=== PATIENT | female | born 1935 | race Caucasian/White ===

== ENCOUNTER → 2016-09-06 | Outpatient (CLI) | payer MEDICARE, OTHER ==
[2016-09-06 08:34] LABS: Basophils # (A) 0.1 k/uL (0-0.2); Basophils % (A) 1 %; CH 29.4; CHCM 33.8; Eosinophils # (A) 0.3 k/uL (0-0.7); Eosinophils % (A) 5 %; HCT 41.7 % (34.0-46.0); HDW 2.53; HGB 14.4 gm/dL (11.4-16.0); Luc # (Auto) 0.15; Luc % (Auto) 2; Lymphocytes # (A) 3.1 k/uL (1.0-4.8); Lymphocytes % (A) 44 %; MCH 30.3 pg (25.0-35.0); MCHC 34.6 g/dL (31.0-37.0); MCV 87.4 fL (80.0-100.0); Mean Platelet Volume 7.2; Monocytes # (A) 0.5 k/uL (0-1.0); Monocytes % (A) 6 %; Neutrophils % (A) 42 %; RBC 4.77 m/uL (3.80-5.40); RDW 13.2 % (11.5-15.5); WBC (Perox) 6.89
[2016-09-06 09:33] LABS: ALT 31 U/L (9-52); AST 26 U/L (14-36); Alkaline Phosphatase 53 U/L (38-126); Anion Gap 11 mmol/L; Blood Urea Nitrogen 15 mg/dL (7-17); Carbon Dioxide 26 mmol/L (22-30); Chloride 107 mmol/L (98-107); Cholesterol 199 mg/dL (<200); Glucose 95 mg/dL (74-99); HDL Cholesterol 53 mg/dL (40-60); Non-African American GFR(MDRD) >60 (>60 ml/min/1.73 sqM); Potassium 4.7 mmol/L (3.5-5.1); Sodium 144 mmol/L (137-145); Total Bilirubin 0.8 mg/dL (0.2-1.3); Total Protein 7.6 g/dL (6.3-8.2); Triglycerides 221 mg/dL (<150)
== END | disposition home or self-care (01) ==
LOC: LABWHC1 07:56
PROVIDERS: ATTEND Internal Medicine Infectious Disease
DX: E78.00 Pure hypercholesterolemia, unspecified (principal); I10 Essential (primary) hypertension
CPT/HCPCS: 36415; 80053; 80061; 82306; 85025

== ENCOUNTER → 2017-01-03 | Outpatient (CLI) | payer MEDICARE, OTHER ==
[2017-01-03 08:31] LABS: ALT 32 U/L (9-52); AST 22 U/L (14-36); Anion Gap 11 mmol/L; Blood Urea Nitrogen 14 mg/dL (7-17); Calcium 9.7 mg/dL (8.4-10.2); Carbon Dioxide 28 mmol/L (22-30); Chloride 104 mmol/L (98-107); Glucose 89 mg/dL (74-99); Non-African American GFR(MDRD) >60 (>60 ml/min/1.73 sqM); Potassium 4.3 mmol/L (3.5-5.1); Sodium 143 mmol/L (137-145)
== END | disposition home or self-care (01) ==
LOC: LABWHC1 07:53
PROVIDERS: ATTEND Internal Medicine Infectious Disease
DX: E78.00 Pure hypercholesterolemia, unspecified (principal); E03.9 Hypothyroidism, unspecified
CPT/HCPCS: 36415; 80048; 84439; 84443; 84450; 84460

== ENCOUNTER 2017-03-03 13:44 | Inpatient (IN) | payer MEDICARE ==
[2017-03-03] MEDS ORDERED: PIPERACILLIN-TAZOBACTAM 3.375 GM in DEXTROSE/WATER 1 50ML.BAG IVPB STA (14:24)
[2017-03-03] MEDS ORDERED: CLINDAMYCIN 600 MG in DEXTROSE 5% IN WATER 50 ML IVPB STA ×2 (14:32)
--- NOTE | 2017-03-03 14:42 | ED ---
Extremity Problem HPI - General Chief complaint: Extremity Problem,Nontraumatic Stated complaint: LEFT FOOT INFECTIONL, SENT BY DR FREED Time Seen by Provider: 03/03/17 14:14 Source: patient Mode of arrival: wheelchair Limitations: no limitations - History of Present Illness Initial comments: Patient is an 81-year-old female with a history of non-diabetic neuropathy who presents with a chief complaint of infection on her left great toe. Patient is seen by podiatry, Dr. Joseph who sent her to the emergency department. The patient states that he opened it and packed it today but he wants her to come to the emergency department so that he can further debridement the wound. The patient does admit to chills over the last few days however she didn't know she had a fever or if it was because she is nervous about her upcoming oral surgery. - Related Data Home Medications Medication Instructions Recorded Confirmed RX: Allopurinol [Zyloprim] 100 mg PO HS 12/23/14 03/03/17 RX: Pravastatin Sodium [Pravachol] 40 mg PO HS 12/23/14 03/03/17 RX: amLODIPine [Norvasc] 5 mg PO QA 12/23/14 03/03/17 RX: Antiarthritic Combination No.2 750 mg PO BID 12/30/14 03/03/17 [Glucosamine-Chondroitin] RX: Calcium Carbonate [Calcium] 600 mg PO DAILY 12/30/14 03/03/17 RX: Fish Oil/Dha/Epa [Fish Oil 1 cap PO DAILY 12/30/14 03/03/17 1,200 mg Fish Oil] RX: Aspirin EC [Ecotrin Low Dose] 81 mg PO DAILY 04/09/15 03/03/17 Cholecalciferol [Vitamin D3] 1,000 unit PO DAILY 03/03/17 03/03/17 Multivitamins, Thera [Multivitamin 1 tab PO DAILY 03/03/17 03/03/17 (formulary)] Allergies Allergy/AdvReac Type Severity Reaction Status Date / Time vancomycin Allergy Anaphylaxis Verified 03/03/17 14:38 sulfamethoxazole AdvReac Dyspnea Verified 03/03/17 14:38 [From Bactrim] trimethoprim [From Bactrim] AdvReac Dyspnea Verified 03/03/17 14:38 Review of Systems ROS Statement: Those systems with pertinent positive or pertinent negative responses have been documented in the HPI. ROS Other: All systems not noted in ROS Statement are negative. Constitutional: Reports: chills. Denies: fever Respiratory: Denies: cough Cardiovascular: Denies: chest pain Endocrine: Denies: fatigue Gastrointestinal: Denies: abdominal pain, nausea, vomiting Genitourinary: Denies: dysuria Musculoskeletal: Denies: back pain Skin: Denies: rash Neurological: Denies: headache Past Medical History Past Medical History: GERD/Reflux, Hyperlipidemia, Musculoskeletal Disorder, Osteoarthritis (OA) Additional Past Medical History / Comment(s): LT FOOT INFECTION PT HAS BEEN DEALING WITH FOR SEVERL MONTHS HAS PICC LINE/HYPERBARIC TX AND SEES DR FREED AT [facility] neuropathy, raynaulds, gout, CHILD HAD HEART MURMUR, HIATAL HERNIA, VIT D DEFICIENCY, INCONT OF URINE, History of Any Multi-Drug Resistant Organisms: MRSA Date of last positivie culture/infection: 1998 MDRO Source:: toe Past Surgical History: Adenoidectomy, Bladder Surgery, Heart Catheterization, Tonsillectomy, Tubal Ligation Additional Past Surgical History / Comment(s): 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 ), SINUS BX-NEG, COLONOSCOPY, MICHELLE BREAST BX-NEG, MICHELLE CATARACTS, PT WAS BORN WITH EXTRA THUMB ON RT HAND HAD IT SX REMOVED WHEN SHE WAS AN INFANT.BLADDER SUSPENSION, CARBAJAL NEUROMA REMOVED Past Anesthesia/Blood Transfusion Reactions: No Reported Reaction Past Psychological History: No Psychological Hx Reported Smoking Status: Never smoker Past Alcohol Use History: None Reported Past Drug Use History: None Reported - Past Family History Son(s) Family Medical History: No Reported History Sister(s) Family Medical History: Diabetes Mellitus Brother(s) Family Medical History: No Reported History Mother Family Medical History: Cancer Additional Family Medical History / Comment(s): PANCREATIC CANCER Father Family Medical History: Congestive Heart Failure (CHF) Additional Family Medical History / Comment(s): POLIO Daughter(s) Family Medical History: Cancer Additional Family Medical History / Comment(s): BRAIN General Exam Limitations: no limitations General appearance: alert, in no apparent distress Head exam: Present: atraumatic, normocephalic Eye exam: Present: PERRL ENT exam: Present: other (patient is very hard of hearing, does not have hearing aids with her. ) Respiratory exam: Present: normal lung sounds bilaterally Cardiovascular Exam: Present: regular rate, normal rhythm GI/Abdominal exam: Present: soft. Absent: distended, tenderness Rectal exam: Present: deferred Left Foot/Toe exam: Present: swelling, erythema, puncture wound Neurological exam: Present: alert, oriented X3 Psychiatric exam: Present: normal affect, normal mood Skin exam: Present: warm, dry, intact Course Vital Signs 03/03/17 03/03/17 13:45 16:53 Temperature 98.3 F 99.3 F Pulse Rate 93 67 Respiratory 18 18 Rate Blood Pressure 195/80 152/68 O2 Sat by Pulse 99 99 Oximetry Medical Decision Making - Medical Decision Making Patient presents with a chief complaint of left great toe infection. On initial evaluation there is erythema, and warmth to the area. There is an ulceration at the base of the fifth metatarsal. There is iodoform packing inside the wound which was removed. Patient has neuropathy therefore she does not feel any pain in her feet. At this time, there is concern for soft tissue infection versus osteomyelitis. 4:59 PM Lab evaluation of this patient is unremarkable except for an elevated CRP. Review of the x-rays did not show any obvious gas formation or obvious signs of osteomyelitis however the patient does have hardware in the infected toe. He was started on Zosyn and clindamycin. I discussed this case with Dr. Lozada who accepts admission with consult to Dr. Freed, and Dr. Jim. I discussed the care plan with the patient, she is agreeable. At this time, the patient remained stable. - Lab Data Result diagrams: 03/03/17 15:05 03/03/17 15:05 Lab Results 03/03/17 03/03/17 03/03/17 Range/Units 15:05 15:05 15:05 WBC 11.1 H (3.8-10.6) k/uL RBC 4.53 (3.80-5.40) m/uL Hgb 13.0 (11.4-16.0) gm/dL Hct 39.6 (34.0-46.0) % MCV 87.3 (80.0-100.0) fL MCH 28.8 (25.0-35.0) pg MCHC 33.0 (31.0-37.0) g/dL RDW 12.6 (11.5-15.5) % Plt Count 298 (150-450) k/uL Neutrophils % 73 % Lymphocytes % 15 % Monocytes % 6 % Eosinophils % 4 % Basophils % 0 % Neutrophils # 8.1 H (1.3-7.7) k/uL Lymphocytes # 1.7 (1.0-4.8) k/uL Monocytes # 0.7 (0-1.0) k/uL Eosinophils # 0.4 (0-0.7) k/uL Basophils # 0.1 (0-0.2) k/uL ESR 66 H (0-20) mm/hr Sodium 139 (137-145) mmol/L Potassium 4.4 (3.5-5.1) mmol/L Chloride 102 (98-107) mmol/L Carbon Dioxide 26 (22-30) mmol/L Anion Gap 11 mmol/L BUN 16 (7-17) mg/dL Creatinine 0.60 (0.52-1.04) mg/dL Est GFR (MDRD) Af Amer >60 (>60 ml/min/1.73 sqM) Est GFR (MDRD) Non-Af >60 (>60 ml/min/1.73 sqM) Glucose 104 H (74-99) mg/dL Plasma Lactic Acid Mervin 1.1 (0.7-2.0) mmol/L Calcium 9.5 (8.4-10.2) mg/dL C-Reactive Protein 25.9 H (<10.0) mg/L Disposition Clinical Impression: Cellulitis and abscess of foot, Infection of left foot Disposition: ADMITTED IP TO THIS HOSP Condition: Good Referrals: Niall Richmond MD [Primary Care Provider] - 1-2 days Decision to Admit Reason: Admit from EC - Out of Hospital Transfer - Req. Specs Out of Hospital Transfer - Requested Specifics: Other Non-Acute
[2017-03-03 15:21] LABS: Basophils # (A) 0.1 k/uL (0-0.2); Basophils % (A) 0 %; Eosinophils # (A) 0.4 k/uL (0-0.7); Eosinophils % (A) 4 %; HCT 39.6 % (34.0-46.0); Lymphocytes # (A) 1.7 k/uL (1.0-4.8); Lymphocytes % (A) 15 %; MCH 28.8 pg (25.0-35.0); MCV 87.3 fL (80.0-100.0); Mean Platelet Volume 6.7; Monocytes # (A) 0.7 k/uL (0-1.0); Monocytes % (A) 6 %; Neutrophils # (A) 8.1 k/uL (1.3-7.7); Neutrophils % (A) 73 %; Platelet Count 298 k/uL (150-450); RBC 4.53 m/uL (3.80-5.40); RDW 12.6 % (11.5-15.5); WBC 11.1 k/uL (3.8-10.6)
[2017-03-03 15:38] LABS: Anion Gap 11 mmol/L; Blood Urea Nitrogen 16 mg/dL (7-17); C Reactive Protein 25.9 mg/L (<10.0); Calcium 9.5 mg/dL (8.4-10.2); Carbon Dioxide 26 mmol/L (22-30); Chloride 102 mmol/L (98-107); Glucose 104 mg/dL (74-99); Sodium 139 mmol/L (137-145)
[2017-03-03 15:39] LABS: Potassium 4.4 mmol/L (3.5-5.1)
--- NOTE | 2017-03-03 16:17 | XR ---
EXAMINATION TYPE: XR foot complete LT DATE OF EXAM: 03/03/2017 CLINICAL HISTORY: Left foot infection with nonhealing wound for months. TECHNIQUE: Frontal, lateral, and oblique images of the left foot are obtained. COMPARISON: Left foot x-ray July 03, 2015. FINDINGS: There is prior osteotomy first metatarsal. There is fixating screw and metallic nail first proximal phalanx redemonstrated. There is marked deformity of first toe redemonstrated. There is ampu tation defects second toe. Osseous overlap makes evaluation suboptimal. Demineralization is present. There is old fracture deformity mid shaft third metatarsal redemonstrated there is some chronic perio steal reaction fourth metatarsal. There is lucency consistent with ulceration near base of first prox imal phalanx. There is prominent soft tissue swelling first toe. There is no suspicious periosteal re action or cortical destruction. There is joint space loss at the Lisfranc joints with spurring. There is small to moderate size inferior calcaneal spur redemonstrated. IMPRESSION: There is no convincing radiographic evidence for acute osteomyelitis. Chronic changes re demonstrated as detailed above not significantly changed from prior x-ray.
[2017-03-03 16:48] LABS: Erythrocyte Sedimentation Rate 66 mm/hr (0-20)
[2017-03-03] MEDS ORDERED: NALOXONE 0.4 MG/ML 1 ML VIAL IV PRN (17:01)
[2017-03-03 21:38] VITALS: BMI 28.2
[2017-03-03] MEDS: CALCIUM CARBONATE 500 MG CHEWABLE PO PRN (22:22)
[2017-03-04] MEDS ORDERED: ACETAMINOPHEN TAB 325 MG TAB PO PRN (11:18)
[2017-03-04] MEDS ORDERED: ONDANSETRON 4 MG/2 ML VIAL IVP PRN (11:18)
[2017-03-04] MEDS ORDERED: HYDROcodone/APAP 5-325MG 1 EACH TAB PO PRN (11:18)
[2017-03-04] MEDS ORDERED: VANCOMYCIN IV PER PHARMACY 1 EACH MISC MISCELLANE PRN (13:33)
--- NOTE | 2017-03-04 13:36 | P.HPIM ---
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 X-ray in the emergency room showed no evidence of osteomyelitis. Left foot is currently wrapped in clean/ dry dressing awaiting infectious disease and podiatry evaluation. Patient was started on broad spectrum antibiotic. There is no evidence of sepsis. Patient denies any pain. Review of Systems Review of system: 14 points review of systems were obtained and were negative except to what were mentioned in the HPI. Past Medical History Past Medical History: GERD/Reflux, Hyperlipidemia, Musculoskeletal Disorder, Osteoarthritis (OA) Additional Past Medical History / Comment(s): LT FOOT INFECTION PT HAS BEEN DEALING WITH FOR SEVERL MONTHS HAS PICC LINE/HYPERBARIC TX AND SEES DR FREED AT [facility] neuropathy, raynaulds, gout, CHILD HAD HEART MURMUR, HIATAL HERNIA, VIT D DEFICIENCY, INCONT OF URINE, History of Any Multi-Drug Resistant Organisms: MRSA Date of last positivie culture/infection: 1998 MDRO Source:: toe Past Surgical History: Adenoidectomy, Bladder Surgery, Heart Catheterization, Tonsillectomy, Tubal Ligation Additional Past Surgical History / Comment(s): 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 ), SINUS BX-NEG, COLONOSCOPY, MICHELLE BREAST BX-NEG, MICHELLE CATARACTS, PT WAS BORN WITH EXTRA THUMB ON RT HAND HAD IT SX REMOVED WHEN SHE WAS AN .BLADDER SUSPENSION, CARBAJAL NEUROMA REMOVED Past Anesthesia/Blood Transfusion Reactions: No Reported Reaction Past Psychological History: No Psychological Hx Reported Smoking Status: Never smoker Past Alcohol Use History: None Reported Past Drug Use History: None Reported - Past Family History Son(s) Family Medical History: No Reported History Sister(s) Family Medical History: Diabetes Mellitus Brother(s) Family Medical History: No Reported History Mother Family Medical History: Cancer Additional Family Medical History / Comment(s): PANCREATIC CANCER Father Family Medical History: Congestive Heart Failure (CHF) Additional Family Medical History / Comment(s): POLIO Daughter(s) Family Medical History: Cancer Additional Family Medical History / Comment(s): BRAIN Medications and Allergies Home Medications Medication Instructions Recorded Confirmed Type Allopurinol [Zyloprim] 100 mg PO HS 12/23/14 03/03/17 History Pravastatin Sodium [Pravachol] 40 mg PO HS 12/23/14 03/03/17 History amLODIPine [Norvasc] 5 mg PO QAM 12/23/14 03/03/17 History Antiarthritic Combination No.2 750 mg PO BID 12/30/14 03/03/17 History [Glucosamine-Chondroitin] Calcium Carbonate [Calcium] 600 mg PO DAILY 12/30/14 03/03/17 History Fish Oil/Dha/Epa [Fish Oil 1,200 1 cap PO DAILY 12/30/14 03/03/17 History mg Fish Oil] Aspirin EC [Ecotrin Low Dose] 81 mg PO DAILY 04/09/15 03/03/17 History Cholecalciferol [Vitamin D3] 1,000 unit PO DAILY 03/03/17 03/03/17 History Multivitamins, Thera [Multivitamin 1 tab PO DAILY 03/03/17 03/03/17 History (formulary)] Allergies Allergy/AdvReac Type Severity Reaction Status Date / Time vancomycin Allergy Anaphylaxis Verified 03/03/17 14:38 sulfamethoxazole AdvReac Dyspnea Verified 03/03/17 14:38 [From Bactrim] trimethoprim [From Bactrim] AdvReac Dyspnea Verified 03/03/17 14:38 Physical Exam Vitals: Vital Signs Temp Pulse Pulse Resp BP BP Pulse Ox 03/04/17 07:00 97.1 F L 62 18 130/51 98 03/03/17 23:02 99.3 F 71 16 130/61 97 03/03/17 20:00 98.3 F 70 16 130/59 98 03/03/17 19:15 98.8 F 76 16 156/66 98 03/03/17 16:53 99.3 F 67 18 152/68 99 03/03/17 13:45 98.3 F 93 18 195/80 99 Intake and Output 03/03/17 03/04/17 03/04/17 22:59 06:59 14:59 Other: # Voids 2 Weight 77 kg General: The patient is awake and alert, in no distress Eye: there is normal conjunctiva bilaterally. Neck: The neck is supple, there is no JVD. Cardiovascular: Normal S1-S2, no S3-S4, no murmurs. Respiratory: Lungs clear to auscultation bilaterally Gastrointestinal: Abdomen is soft, nontender Musculoskeletal: There is no pedal edema. Neurological:. Speech is normal. Skin: Skin is warm and dry Results CBC & Chem 7: 03/03/17 15:05 03/03/17 15:05 Labs: Abnormal Lab Results - Last 24 Hours (Table) 03/03/17 03/03/17 Range/Units 15:05 15:05 WBC 11.1 H (3.8-10.6) k/uL Neutrophils # 8.1 H (1.3-7.7) k/uL ESR 66 H (0-20) mm/hr Glucose 104 H (74-99) mg/dL C-Reactive Protein 25.9 H (<10.0) mg/L Thrombosis Risk Factor Assmnt - Choose All That Apply Each Risk Factor Represents 3 Points: Age 75 years or older Thrombosis Risk Factor Assessment Total Risk Factor Score: 3 Thrombosis Risk Factor Assessment Level: Moderate Risk Assessment and Plan Assessment: 1. Cellulitis of the left foot with infected wounds, currently on vancomycin and Zosyn. Awaiting infectious disease and podiatry evaluation. 2. Essential hypertension, blood pressure well-controlled 3. Chronic gout with no evidence of flareup 4. Hyperlipidemia maintained on pravastatin 5. DVT prophylaxis with subcu heparin Today, I reviewed her lab work results and medication list. Continue current regimen. X-ray of the left foot showed no evidence of osteomyelitis. Awaiting podiatry and infectious disease evaluation.
[2017-03-04] MEDS ORDERED: CLINDAMYCIN 300 MG in DEXTROSE 5% IN WATER 50 ML IVPB SCH ×2 (15:00)
[2017-03-04] MEDS ORDERED: PIPERACILLIN-TAZOBACTAM 3.375 GM in DEXTROSE/WATER 1 50ML.BAG IVPB SCH (16:00)
[2017-03-04] MEDS: PRAVASTATIN SODIUM 40 MG TAB PO SCH (20:28)
[2017-03-04] MEDS: HEPARIN SODIUM,PORCINE 5,000 UNIT/ML 1 ML VIAL SQ SCH (20:28)
[2017-03-04] MEDS: ALLOPURINOL 100 MG TAB PO SCH (20:28)
[2017-03-05] MEDS: AMPICILLIN-SULBACTAM 3 GM in SODIUM CHLORIDE 0.9% 100 ML IVPB SCH ×4 (00:01→17:48)
[2017-03-05] MEDS: ASPIRIN 81 MG PO SCH (08:46)
[2017-03-05] MEDS: amLODIPine 5 MG TAB PO SCH (08:46)
[2017-03-05] MEDS: HEPARIN SODIUM,PORCINE 5,000 UNIT/ML 1 ML VIAL SQ SCH ×2 (08:48→22:20)
[2017-03-05 09:00] LABS: Basophils % (A) 0 %; Eosinophils # (A) 0.4 k/uL (0-0.7); Eosinophils % (A) 6 %; HCT 37.6 % (34.0-46.0); HGB 12.1 gm/dL (11.4-16.0); Lymphocytes # (A) 1.4 k/uL (1.0-4.8); Lymphocytes % (A) 21 %; MCH 28.7 pg (25.0-35.0); MCHC 32.3 g/dL (31.0-37.0); Monocytes # (A) 0.3 k/uL (0-1.0); Monocytes % (A) 5 %; Neutrophils # (A) 4.5 k/uL (1.3-7.7); Neutrophils % (A) 66 %; Platelet Count 283 k/uL (150-450); RBC 4.23 m/uL (3.80-5.40); RDW 12.6 % (11.5-15.5); WBC 6.8 k/uL (3.8-10.6)
[2017-03-05 09:14] LABS: ALT 37 U/L (9-52); AST 24 U/L (14-36); Albumin 3.6 g/dL (3.5-5.0); Alkaline Phosphatase 60 U/L (38-126); Anion Gap 11 mmol/L; Blood Urea Nitrogen 14 mg/dL (7-17); Calcium 9.1 mg/dL (8.4-10.2); Carbon Dioxide 28 mmol/L (22-30); Chloride 102 mmol/L (98-107); Glucose 172 mg/dL (74-99); Sodium 141 mmol/L (137-145); Total Bilirubin 0.4 mg/dL (0.2-1.3); Total Protein 6.3 g/dL (6.3-8.2)
--- NOTE | 2017-03-05 10:30 | CONS ---
CONSULTATION DATE OF SERVICE: 03/04/2017. REASON FOR CONSULTATION: Left foot wound cellulitis. HISTORY OF PRESENT ILLNESS: The patient is an 81-year-old female well known to my service. The patient did have a history of recurrent wound and cellulitis as well as osteomyelitis of the left foot with wound on the plantar aspect of the first metatarsal head of the left foot. The last episode of osteomyelitis was back in March of 2015. At that time, the patient did grow pasteurella with previous history of MSSA infection. The patient has been doing well, the wound has completely healed up, and she is following up with Dr. Becker at [facility] [place]. The patient said she noticed to have some swelling and erythema of the wound on the left foot yesterday morning when she woke up. She made an appointment to see Dr. Becker in the [facility] where the patient was evaluated. The patient was sent to the ER for admission, for IV antibiotic therapy, and possible surgical debridement of the same. The patient says she has not been feeling well for the last few days with generalized aching and some chills but denies any high-grade fever. She did have some dull aching pain in the foot area for the last 2-3 days intensity of for 3-4 out of 10 with no radiation associated swelling and redness of the left foot Pain is more when she walks on it. Minimal drainage from the wound. The patient was evaluated by the ER physician. She did have x-rays which was negative for any osteomyelitis. She was started on broad-spectrum antibiotic in the form of Zosyn and vancomycin. ID was consulted for further recommendation regarding antibiotic therapy. REVIEW OF SYSTEMS: Constitutional positive for weakness and chills. Eyes no complaint. ENT no complaint. Respiratory no complaint. Cardiovascular no complaint. Genitourinary no complaint. Gastrointestinal no complaint. Musculoskeletal as per HPI. Integumentary as per HPI. Psychological no complaint. Endocrine no complaint. Neurologic no complaint. PAST MEDICAL HISTORY: Significant for hyperlipidemia, osteoarthritis, Raynaud's phenomena, history of left foot osteomyelitis, gastroesophageal reflux disease, hiatal hernia, gout, vitamin D deficiency. PAST SURGICAL HISTORY: Adenoidectomy, bladder surgery, heart catheterization, tonsillectomy, tubal ligation, left 2nd toe amputation, colonoscopy. SOCIAL HISTORY: No history of smoking, drinking, or drug use. She is . FAMILY HISTORY: Sister with a history of diabetes mellitus. Mother with history of pancreatic cancer. ALLERGIES: Sulfamethoxazole and vancomycin. MEDICATIONS: The patient is currently on Zosyn, clindamycin, Pravachol, Zofran, Narcan, heparin, TUMS, aspirin, Norvasc, Duncan, Tylenol. PHYSICAL EXAMINATION: Blood pressure is 136/73 with a pulse of 61, temperature of 96.9. She is 98% on room air. General description is an elderly female lying in bed in no distress. No tachypnea or accessory muscle of respiration use. HEENT: No pallor or scleral icterus. Oral mucosa is dry. No pharyngeal erythema or thrush NECK: Trachea central. No thyromegaly. LUNGS: Unlabored breathing. Clear to auscultation anteriorly. HEART: S1, S2. regular rate and rhythm. No murmur ABDOMEN: Soft, no tenderness. No guarding. No rigidity. No organomegaly EXTREMITIES: No edema of the feet. On examination of left foot, she did have a wound on the plantar aspect at the base of 1st metatarsal head. Wound was clean and probed for culture, is seems to be deep wound with minimal purulent secretions and some surrounding swelling and redness of the left foot. NEUROLOGIC: The patient is awake, alert, oriented x3. Mood and affect normal. LABS: Hemoglobin is 13, white count 11.1. Sedimentation rate 66 with a BUN of 16, creatinine 0.60. CRP was 25.9. X-rays were negative for any bony changes. DIAGNOSTIC IMPRESSION AND PLAN: Patient with left foot wound and cellulitis with question of underlying deep infection. As the wound and probed down to the bone, she did have a left foot deformity that is putting high risk of recurrence callus and ulceration at that point patient did have a previous history of osteomyelitis at the same locationm likely this episode is representing an other episode of osteomyelitis ,The patient previously had a history of methicillin susceptible Staph aureus and pasteurella infection and no recent history of MRSA. Could be either a gram- positive or gram-negative infection we'll need to start the patient on broad- spectrum antibiotics and further workup to rule out deep infection PLAN: 1. Discontinue the Zosyn. 2. Start the patient on the Unasyn 3 g every 6 hours. 3. Wound culture has been obtained, both aerobic and anaerobic, to guide antibiotic therapy. and will need a bone scan to rule out underlying osteomyelitis 4. Await podiatry evaluation and debridement of this wound. patient will need either surgical correction of the deformity or offloading shoes to prevent recurrent callus formation at the site that has lead to this recurrent infection and this will be discussed with podiatry 5. Depending upon the clinical response of other cultures, further adjust medication if needed. Thank you for this consultation. Will follow this patient along with you. MMODL / IJN: [id number] / ALECIA
--- NOTE | 2017-03-05 14:08 | P.PN ---
Subjective Progress Note Date: 03/05/17 patient is doing well today. Awaiting podiatry evaluation. Objective - Vital Signs Vital signs: Vital Signs Temp 97.0 F L 03/05/17 07:00 Pulse 60 03/05/17 07:00 Resp 16 03/05/17 07:00 BP 128/59 03/05/17 07:00 Pulse Ox 99 03/05/17 07:00 Intake & Output 03/04/17 03/05/17 03/05/17 18:59 06:59 18:59 Other: Voiding Method Toilet # Voids 3 3 - Exam General: The patient is awake and alert, in no distress. Patient is very hard of hearing Eye: there is normal conjunctiva bilaterally. Neck: The neck is supple, there is no JVD. Cardiovascular: Normal S1-S2, no S3-S4, no murmurs. Respiratory: Lungs clear to auscultation bilaterally Gastrointestinal: Abdomen is soft, nontender Musculoskeletal: left foot wrapped with clean/dry dressing Neurological:. Speech is normal. Skin: Skin is warm and dry - Labs CBC & Chem 7: 03/05/17 08:35 03/05/17 08:35 Labs: Abnormal Lab Results - Last 24 Hours (Table) 03/05/17 Range/Units 08:35 Glucose 172 H (74-99) mg/dL Microbiology - Last 24 Hours (Table) 03/04/17 14:22 Gram Stain - Preliminary Foot - Left Wound Culture - Preliminary 03/04/17 14:22 Anaerobic Culture - Preliminary Foot - Left 03/03/17 15:05 Blood Culture - Preliminary Blood No Growth after 24 hours Assessment and Plan Assessment: 1. Cellulitis of the left foot with infected wounds, antibiotic adjusted by infectious disease. Awaiting wound culture. Awaiting podiatry evaluation. 2. Essential hypertension, blood pressure well-controlled 3. Chronic gout with no evidence of flareup 4. Hyperlipidemia maintained on pravastatin 5. DVT prophylaxis with subcu heparin Today, I reviewed her lab work results and medication list. Continue current regimen. X-ray of the left foot showed no evidence of osteomyelitis. Awaiting podiatry evaluation.
[2017-03-05] MEDS: CALCIUM CARBONATE 500 MG CHEWABLE PO PRN (15:59)
[2017-03-05] MEDS: ALLOPURINOL 100 MG TAB PO SCH (22:20)
[2017-03-05] MEDS: PRAVASTATIN SODIUM 40 MG TAB PO SCH (23:30)
[2017-03-06] MEDS: AMPICILLIN-SULBACTAM 3 GM in SODIUM CHLORIDE 0.9% 100 ML IVPB SCH ×4 (00:10→17:30)
[2017-03-06] MEDS: amLODIPine 5 MG TAB PO SCH (08:14)
[2017-03-06] MEDS: ASPIRIN 81 MG PO SCH (08:14)
[2017-03-06] MEDS: HEPARIN SODIUM,PORCINE 5,000 UNIT/ML 1 ML VIAL SQ SCH ×2 (08:14→20:06)
[2017-03-06] MEDS ORDERED: DAPTOmycin IN 0.9% NACL 500 MG/10 ML SYRINGE IVP SCH (09:00)
[2017-03-06 09:54] LABS: Basophils % (A) 1 %; Eosinophils # (A) 0.5 k/uL (0-0.7); Eosinophils % (A) 10 %; HCT 37.5 % (34.0-46.0); HGB 12.2 gm/dL (11.4-16.0); Lymphocytes # (A) 1.7 k/uL (1.0-4.8); Lymphocytes % (A) 32 %; MCH 28.6 pg (25.0-35.0); MCHC 32.4 g/dL (31.0-37.0); MCV 88.4 fL (80.0-100.0); Mean Platelet Volume 6.9; Monocytes # (A) 0.3 k/uL (0-1.0); Monocytes % (A) 5 %; Neutrophils # (A) 2.6 k/uL (1.3-7.7); Neutrophils % (A) 51 %; Platelet Count 313 k/uL (150-450); RBC 4.25 m/uL (3.80-5.40); RDW 12.7 % (11.5-15.5); WBC 5.2 k/uL (3.8-10.6)
[2017-03-06 10:08] LABS: ALT 38 U/L (9-52); AST 19 U/L (14-36); Albumin 3.7 g/dL (3.5-5.0); Alkaline Phosphatase 63 U/L (38-126); Anion Gap 12 mmol/L; Blood Urea Nitrogen 13 mg/dL (7-17); Calcium 9.4 mg/dL (8.4-10.2); Carbon Dioxide 26 mmol/L (22-30); Chloride 105 mmol/L (98-107); Glucose 142 mg/dL (74-99); Potassium 4.3 mmol/L (3.5-5.1); Sodium 143 mmol/L (137-145); Total Bilirubin 0.3 mg/dL (0.2-1.3); Total Protein 6.5 g/dL (6.3-8.2)
--- NOTE | 2017-03-06 11:04 | PN ---
PROGRESS NOTE DATE OF SERVICE: 03/05/17 REASON FOR FOLLOWUP: Left foot wound and a question of osteomyelitis. INTERVAL HISTORY: The patient is afebrile. She has been breathing comfortably. Denies having any chest pain, cough. Overall pain and swelling to the left foot area has improved. No nausea, vomiting, or any diarrhea. EXAMINATION: Blood pressure 142/60 with a pulse of 84, temperature 96.8. She is 100% on room air. General description is an elderly female lying in bed in no distress. Respiratory system unlabored breathing, clear to auscultation anteriorly. Heart S1, S2. Regular rate and rhythm. Abdomen soft and no tenderness. Left foot swelling and redness have slightly decreased. Minimal drainage. LABS: White count normalized to 6.8 with a BUN of 14, creatinine 0.66. Wound culture showing presumptive Staph aureus. DIAGNOSTIC IMPRESSION AND PLAN: Patient with left foot wound infection with secondary cellulitis. We will obtain a bone scan to make sure no evidence of any underlying osteomyelitis. She will continue with Unasyn. However in view of the Staph aureus seen, daptomycin will be added while waiting for the final ID of this pathogen. Continue supportive care. Family was present at the bedside. Their questions were answered. MMODL / IJN: [id number] /
--- NOTE | 2017-03-06 12:02 | P.PN ---
Subjective Progress Note Date: 03/06/17 Patient is doing well today. She is scheduled for bone scan to rule out osteomyelitis today. Objective - Vital Signs Vital signs: Vital Signs Temp 97.3 F L 03/06/17 07:00 Pulse 74 03/06/17 07:00 Resp 16 03/06/17 07:00 BP 126/59 03/06/17 07:00 Pulse Ox 96 03/06/17 07:00 Intake & Output 03/05/17 03/06/17 03/06/17 18:59 06:59 18:59 Intake Total 150 240 Balance 150 240 Intake: Intake, IV Titration 150 Amount Ampicillin-Sulbactam 3 gm 100 In Sodium Chloride 0.9% 100 ml @ 100 mls/hr IVPB Q6HR [facility] Rx#:[id number] DAPTOmycin 300 mg In 50 Sodium Chloride 0.9% 50 ml @ 100 mls/hr IV HS [facility] Rx#:[id number] Oral 240 Other: # Voids 3 2 - Exam General: The patient is awake and alert, in no distress. Patient is very hard of hearing Eye: there is normal conjunctiva bilaterally. Neck: The neck is supple, there is no JVD. Cardiovascular: Normal S1-S2, no S3-S4, no murmurs. Respiratory: Lungs clear to auscultation bilaterally Gastrointestinal: Abdomen is soft, nontender Musculoskeletal: left foot wrapped with clean/dry dressing Neurological:. Speech is normal. Skin: Skin is warm and dry - Labs CBC & Chem 7: 03/06/17 08:55 03/06/17 08:55 Labs: Abnormal Lab Results - Last 24 Hours (Table) 03/06/17 Range/Units 08:55 Glucose 142 H (74-99) mg/dL Microbiology - Last 24 Hours (Table) 03/04/17 14:22 Gram Stain - Preliminary Foot - Left Wound Culture - Preliminary Presumptive Staph aureus 03/03/17 15:05 Blood Culture - Preliminary Blood No Growth after 48 hours Assessment and Plan Assessment: 1. Cellulitis of the left foot with infected wounds, antibiotic adjusted by infectious disease. Awaiting wound culture to finalize. Patient is scheduled for bone scan today to rule out osteomyelitis. 2. Essential hypertension, blood pressure well-controlled 3. Chronic gout with no evidence of flareup 4. Hyperlipidemia maintained on pravastatin 5. DVT prophylaxis with subcu heparin Today, I reviewed her lab work results and medication list. Continue current regimen. X-ray of the left foot showed no evidence of acute osteomyelitis. Awaiting podiatry evaluation.
--- NOTE | 2017-03-06 14:49 | NM ---
EXAMINATION TYPE: NM bone 3 phase DATE OF EXAM: 03/06/2017 COMPARISON: 03/03/2017 HISTORY: Left foot wound with concern for osteomyelitis. Triple phase bone scintigraphy was performed following the injection of24.4 mCi Tc 99m MDP. Immediat e images and 5.5 hours post injection images acquired. FINDINGS: There is asymmetric increased flow to the left lower extremity with increased blood pool of the left lower extremity localizing to the medial forefoot. On delayed images there is focal accumulation of r adiotracer within the right tarsals and left first great digit with a lesser degree of radiotracer se en within the midfoot and hindfoot on the left and overlying soft tissues. IMPRESSION: 1. Findings most compatible with osteomyelitis of the left first digit and overlying cellulitis of th e left foot. 2. Mild radiotracer accumulation on delayed images within the left midfoot and hindfoot likely relate to the cellulitis and degenerative change rather than additional areas of osteomyelitis. 3. Focal delayed radiotracer accumulation within the right midfoot. Finding is nonspecific and could represent additional site of osteomyelitis, Charcot joint, fracture, or severe degenerative change.
[2017-03-06] MEDS: ALLOPURINOL 100 MG TAB PO SCH (20:06)
[2017-03-06] MEDS: ceFAZolin IN SWFI 2 GM/20 ML SYRINGE IVP SCH (23:10)
--- NOTE | 2017-03-06 23:13 | PN ---
PROGRESS NOTE DATE OF SERVICE: 03/06/2017 REASON FOR FOLLOWUP: Left foot plantar wound and likely osteomyelitis. INTERVAL HISTORY: The patient is afebrile. She is breathing comfortably. Overall pain and swelling to the left foot area are currently improved. The patient denies having any chest pain, shortness of breath or cough. No abdominal pain or diarrhea. PHYSICAL EXAMINATION: Blood pressure 138/74 with a pulse of 84, temperature 97.7. She is 96% on room air. General description is an elderly female up in the bed in no distress. RESPIRATORY SYSTEM: Unlabored breathing. Clear to auscultation anteriorly. HEART: S1, S2. Regular rate and rhythm. ABDOMEN: Soft. No tenderness. LABS: Hemoglobin is 12.2, white count 5.2 with a BUN of 13, creatinine 0.70. The wound culture finalized with MSSA. Blood culture has been negative. 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 Antibiotic will be adjusted to cefazolin 2 grams q.8 hours. She will need a PICC line for outpatient IV antibiotic therapy. Continue local wound care with Aquacel Silver dressing and continue with supportive care. MMODL / IJN: [id number] /
[2017-03-07] MEDS: HEPARIN SODIUM,PORCINE 5,000 UNIT/ML 1 ML VIAL SQ SCH (07:14)
[2017-03-07] MEDS: ASPIRIN 81 MG PO SCH (07:15)
[2017-03-07] MEDS: amLODIPine 5 MG TAB PO SCH (07:37)
[2017-03-07] MEDS: ceFAZolin IN SWFI 2 GM/20 ML SYRINGE IVP SCH ×2 (07:37→15:05)
[2017-03-07 09:11] LABS: Basophils # (A) 0.1 k/uL (0-0.2); Basophils % (A) 1 %; Eosinophils # (A) 0.4 k/uL (0-0.7); Eosinophils % (A) 9 %; HCT 37.2 % (34.0-46.0); HGB 12.1 gm/dL (11.4-16.0); Lymphocytes # (A) 1.1 k/uL (1.0-4.8); Lymphocytes % (A) 24 %; MCH 28.2 pg (25.0-35.0); MCHC 32.5 g/dL (31.0-37.0); MCV 86.9 fL (80.0-100.0); Mean Platelet Volume 7.2; Monocytes # (A) 0.3 k/uL (0-1.0); Monocytes % (A) 6 %; Neutrophils # (A) 2.7 k/uL (1.3-7.7); Neutrophils % (A) 58 %; Platelet Count 296 k/uL (150-450); RBC 4.28 m/uL (3.80-5.40); RDW 13.5 % (11.5-15.5); WBC 4.7 k/uL (3.8-10.6)
[2017-03-07 09:22] LABS: ALT 36 U/L (9-52); AST 19 U/L (14-36); Albumin 3.7 g/dL (3.5-5.0); Alkaline Phosphatase 61 U/L (38-126); Anion Gap 9 mmol/L; Blood Urea Nitrogen 13 mg/dL (7-17); Calcium 9.5 mg/dL (8.4-10.2); Carbon Dioxide 27 mmol/L (22-30); Chloride 106 mmol/L (98-107); Glucose 127 mg/dL (74-99); Potassium 4.4 mmol/L (3.5-5.1); Sodium 142 mmol/L (137-145); Total Bilirubin 0.2 mg/dL (0.2-1.3); Total Protein 6.4 g/dL (6.3-8.2)
--- NOTE | 2017-03-07 14:17 | P.DS ---
Providers Date of admission: 03/03/17 17:01 Expected date of discharge: 03/07/17 Attending physician: Guadalupe Lozada Consults: 03/03/17 17:02 Consult Physician Urgent Consulting Provider: Gorge Becker Consult Reason/Comments: cellulitis of left foot Do you want consulting provider notified?: Yes Consult Physician Urgent Consulting Provider: Niall Richmond Consult Reason/Comments: cellulitis and abscess of left great toe Do you want consulting provider notified?: Yes Primary care physician: Niall Richmond Hospital Course: 1. Cellulitis of the left foot with infected wounds status post debridement in the office by podiatry. Patient was seen and evaluated by infectious disease. Bone scan showed evidence of osteomyelitis of the left first digit. Patient will get the PICC line insertion. She will be discharged to [facility] on 6 weeks of antibiotic with Kefzol as recommended by infectious disease. One culture grew MSSA. Blood culture negative. 2. Essential hypertension, blood pressure well-controlled 3. Chronic gout with no evidence of flareup 4. Hyperlipidemia maintained on pravastatin Patient Condition at Discharge: Fair Plan - Discharge Summary New Discharge Prescriptions: New ceFAZolin [Kefzol] 2 gm IVP Q8HR #126 ml Continue amLODIPine [Norvasc] 5 mg PO QAM Pravastatin Sodium [Pravachol] 40 mg PO HS Allopurinol [Zyloprim] 100 mg PO HS Fish Oil/Dha/Epa [Fish Oil 1,200 mg Fish Oil] 1 cap PO DAILY Calcium Carbonate [Calcium] 600 mg PO DAILY Antiarthritic Combination No.2 [Glucosamine-Chondroitin] 750 mg PO BID Aspirin EC [Ecotrin Low Dose] 81 mg PO DAILY Multivitamins, Thera [Multivitamin (formulary)] 1 tab PO DAILY Cholecalciferol [Vitamin D3] 1,000 unit PO DAILY Discharge Medication List Allopurinol [Zyloprim] 100 mg PO HS 12/23/14 [History] Pravastatin Sodium [Pravachol] 40 mg PO HS 12/23/14 [History] amLODIPine [Norvasc] 5 mg PO QAM 12/23/14 [History] Antiarthritic Combination No.2 [Glucosamine-Chondroitin] 750 mg PO BID 12/30/14 [History] Calcium Carbonate [Calcium] 600 mg PO DAILY 12/30/14 [History] Fish Oil/Dha/Epa [Fish Oil 1,200 mg Fish Oil] 1 cap PO DAILY 12/30/14 [History] Aspirin EC [Ecotrin Low Dose] 81 mg PO DAILY 04/09/15 [History] Cholecalciferol [Vitamin D3] 1,000 unit PO DAILY 03/03/17 [History] Multivitamins, Thera [Multivitamin (formulary)] 1 tab PO DAILY 03/03/17 [History ] ceFAZolin [Kefzol] 2 gm IVP Q8HR #126 ml 03/06/17 [Rx] Follow up Appointment(s)/Referral(s): Bhavesh Connelly, [NON-STAFF] - 1 Week [facility], [NON-STAFF] - [facility] [NON-STAFF] - 03/17/17 8:00 am Niall Richmond MD [Primary Care Provider] - 03/16/17 9:45 am Ambulatory/Diagnostic Orders: Basic Metabolic Panel [LAB.AMB] Location: Determined By Patient C Reactive Protein [LAB.AMB] Location: Determined By Patient Complete Blood Count w/diff [LAB.AMB] Location: Determined By Patient Erythrocyte Sedimentation Rate [LAB.AMB] Location: Determined By Patient Patient Instructions/Handouts: Abscess (GEN) Discharge Disposition: TRANSFER TO SNF/ECF
--- NOTE | 2017-03-07 15:15 | IR ---
EXAMINATION TYPE: IR cvc insert >=5 years DATE OF EXAM: 03/07/2017 COMPARISON: NONE CLINICAL HISTORY: Infection Needs long-term intravenous access for antibiotics. PROCEDURE: After informed consent, the skin overlying the left brachial vein was localized with ultrasound and n oted to be compressible and patent. An ultrasound image was obtained and submitted on the patient's chart. The overlying skin was prepped and draped and Lidocaine was used for local anesthesia. A ski n radha was made with a scalpel. Access was gained to the vein under ultrasound guidance with a 21 ga uge needle and a 0.018 inch wire was advanced. Access site was dilated with Peel-Away sheath and cat heter tailored to the appropriate length and advanced such that the distal tip is at the cavoatrial j unction. Spot image was obtained verifying placement. Catheter was fixed to the skin with suture an d a sterile dressing was placed following hemostasis. Catheter was aspirated and flushed with saline . Patient was discharged in stable condition without complication.Maximal barrier technique is utili zed. Ultrasound image is documented on the chart. Ultrasound used with sterile technique. Fluoro time and fluoroscopic images submitted to document procedure: 31 intraoperative images, 0.2 mi nutes fluoroscopy time IMPRESSION: STATUS POST ULTRASOUND AND FLUOROSCOPIC GUIDED PICC LINE PLACEMENT, READY FOR USE. THIS PROCEDURE WAS PERFORMED BY THE UNDERSIGNED.
--- NOTE | 2017-03-07 15:41 | PN ---
PROGRESS NOTE DATE OF SERVICE: 03/07/2017. REASON FOR FOLLOWUP: Left foot MSSA acute osteomyelitis. INTERVAL HISTORY: The patient is afebrile she is breathing comfortably. Denies having any chest pain or shortness of breath or cough. No abdominal pain. Currently waiting for the PICC line placement. EXAMINATION: Her blood pressure is 135/53 with a pulse of 54, temperature is 97.6. She is 98% on room air. General description is an elderly female lying in bed in no distress. Respiratory system: Unlabored breathing, clear to auscultation anteriorly. Heart S1, S2. Regular rate and rhythm. Abdomen soft, no tenderness. LABS: Wound culture with MSSA. Sedimentation rate of 66. CRP of 25.9. DIAGNOSTIC IMPRESSION AND PLAN: Patient with left foot nonhealing wound with secondary osteomyelitis. Culture positive for MSSA, recommending cefazolin 2 g q.8h for total of 6 weeks with weekly monitoring of CBC and BMP and sed rate. PICC line will be placed. Once the patient gets a PICC line and antibiotic arranged, she should be able to go home from ID standpoint. Continue supportive care. MMODL / IJN: [id number] /
[2017-03-07 15:58] VITALS: PULSE 65; RESP 18; TEMP 96.2
[2017-03-07 16:43] VITALS: BP 144/65
--- NOTE | 2017-03-07 18:09 | P.PN ---
Subjective Progress Note Date: 03/04/17 Patient was seen at bedside on February Patient was admitted to the hospital on clinic. She presented to the clinic with UlcerLeft foot with ascending cellulitis. Had symptoms of systemic sepsis and was treated in the office with incision and drainage of the wound as well as packing the wound with iodoform gauze after flushing with sterile saline. Objective - Vital Signs Vital signs: Vital Signs Temp 96.9 F L 03/04/17 15:00 Pulse 61 03/04/17 15:00 Resp 18 03/04/17 15:00 BP 136/73 03/04/17 15:00 Pulse Ox 98 03/04/17 15:00 Intake & Output 03/04/17 03/04/17 03/05/17 06:59 18:59 06:59 Other: # Voids 2 3 - Cardiovascular Details: Pedal pulses are diminished bilateral. There is no digital hair bilateral. - Integumentary Integumentary Comment(s): There is an ulcer on the plantar aspect of left foot plantar to the fibular sesamoid.There is decreasing erythema edema of the foot from Monday's presentation. There is no purulence from the wound there is no necrotic tissue of the wound. 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 - Musculoskeletal Musculoskeletal Comment(s): Patient is amputation of the left second toe. Review of radiographs show no osteomyelitis of the foot. 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 We ordered wound care products to be applied to the wound after flushing the wound with sterile saline. It appears the wound and cellulitis are resolving with the current treatment plan. Patient is to continue to be treated for this wound and the wound care clinic this coming Monday. Thank you for this consult
== END 2017-03-07 17:19 | DRG 540 ==
LOC: EC 13:44 → 5MS5E 17:01 → 4MS4W 18:07
PROVIDERS: ADMIT Internal Medicine; ATTEND Internal Medicine
PROC: 02HV33Z Insertion of Infusion Device into Superior Vena Cava, Percutaneous Approach (ICD-10-PCS; principal; 2017-03-07 14:28)
PROC: B548ZZA Ultrasonography of Superior Vena Cava, Guidance (ICD-10-PCS; 2017-03-07 14:28)
PROC: B518ZZA Fluoroscopy of Superior Vena Cava, Guidance (ICD-10-PCS; 2017-03-07 14:28)
DX: M86.172 Other acute osteomyelitis, left ankle and foot (principal); L03.116 Cellulitis of left lower limb; G62.9 Polyneuropathy, unspecified; L97.529 Non-pressure chronic ulcer of other part of left foot with unspecified severity; B95.61 Methicillin susceptible Staphylococcus aureus infection as the cause of diseases classified elsewhere; K21.9 Gastro-esophageal reflux disease without esophagitis; K44.9 Diaphragmatic hernia without obstruction or gangrene; M1A.9XX0 Chronic gout, unspecified, without tophus (tophi); E78.5 Hyperlipidemia, unspecified; E55.9 Vitamin D deficiency, unspecified; M19.91 Primary osteoarthritis, unspecified site; R32 Unspecified urinary incontinence; I10 Essential (primary) hypertension; I73.00 Raynaud's syndrome without gangrene; H91.90 Unspecified hearing loss, unspecified ear; M20.62 Acquired deformities of toe(s), unspecified, left foot; Z79.82 Long term (current) use of aspirin; Z79.899 Other long term (current) drug therapy; Z86.14 Personal history of Methicillin resistant Staphylococcus aureus infection; Z90.49 Acquired absence of other specified parts of digestive tract; Z86.19 Personal history of other infectious and parasitic diseases; Z98.42 Cataract extraction status, left eye; Z98.41 Cataract extraction status, right eye; Z88.1 Allergy status to other antibiotic agents; Z88.2 Allergy status to sulfonamides
CPT/HCPCS: 36415; 36569; 76937; 77001; 78315; 80048; 80053; 83605; 85025; 85652; 86140; 87040; 87070; 87075; 87077; 87186; 87205; 96365; 96366; 96367; 99284

== ENCOUNTER 2017-03-17 14:09 | Observation (INO) | payer MEDICARE ==
[2017-03-17] MEDS ORDERED: SODIUM CHLORIDE 0.9% 1,000 ML IV STA (14:34)
[2017-03-17] MEDS ORDERED: FAMOTIDINE 20 MG/2 ML VIAL IV STA (14:34)
--- NOTE | 2017-03-17 14:38 | ED ---
General Adult HPI - General Chief complaint: Allergic Reaction Stated complaint: ALLERGIC REACTION Time Seen by Provider: 03/17/17 14:20 Source: patient, family, EMS, RN notes reviewed, old records reviewed Mode of arrival: EMS Limitations: no limitations - History of Present Illness Initial comments: 81-year-old female presents by EMS for evaluation of ALLERGIC reaction. Patient is currently on antibiotic therapy for nonhealing ulcer on the plantar surface of her left foot. She has been followed with wound care and has a left upper extremity PICC line for antibiotic infusion. Patient is uncertain which antibiotic she has been on for this. This history will be obtained. Patient and her daughter state that over the past 36 hours patient has developed significant rash which is burning and itchy. She also developed difficulty breathing, and vomiting. Patient's vomiting began approximately noon today. She had multiple episodes over the course of several hours. The last episode was dark according to her daughter. Patient was transported by EMS, there was some difficulty breathing reported, they gave Benadryl, slightly Medrol, and epinephrine. According to the daughter her rash is improving at this time. Denies dyspnea at the time my evaluation. Patient had her antibiotics switched this morning secondary to hives, she received her first dose of new antibiotic this morning. - Related Data Home Medications Medication Instructions Recorded Confirmed Allopurinol [Zyloprim] 100 mg PO HS 12/23/14 03/17/17 Pravastatin Sodium [Pravachol] 40 mg PO HS@2100 12/23/14 03/17/17 amLODIPine [Norvasc] 5 mg PO QAM 12/23/14 03/17/17 Calcium Carbonate [Calcium] 600 mg PO DAILY@0 12/30/14 03/17/17 Fish Oil/Dha/Epa [Fish Oil 1,200 1 cap PO DAILY@169912/30/14 03/17/17 mg Fish Oil] Aspirin EC [Ecotrin Low Dose] 81 mg PO DAILY@1700 04/09/15 03/17/17 Cholecalciferol [Vitamin D3] 1,000 unit PO DAILY@169903/03/17 03/17/17 Multivitamins, Thera [Multivitamin 1 tab PO DAILY@169903/03/17 03/17/17 (formulary)] Acetaminophen [Tylenol Arthritis] 650 mg PO Q4H PRN 03/17/17 03/17/17 Bisacodyl [Dulcolax] 10 mg RECTAL DAILY PRN 03/17/17 03/17/17 DAPTOmycin [Cubicin] 400 mg IV DAILY 03/17/17 03/17/17 Glucosamine-Chondr 500-400Mg 1 tab PO BID 03/17/17 03/17/17 Hydrocortisone Cream 1 applic TOPICAL DIRECTED PRN 03/17/17 03/17/17 [Hydrocortisone 1% Cream] Anselmo Packet 1 packet PO DAILY 03/17/17 03/17/17 Magnesium Hydroxide [Milk of 2,400 mg PO DAILY PRN 03/17/17 03/17/17 Magnesia] Na Phos,M-B/Na Phos,Di-Ba [Fleet 133 ml RECTAL DAILY PRN 03/17/17 03/17/17 Adult] diphenhydrAMINE [Benadryl] 25 mg PO Q6H PRN 03/17/17 03/17/17 methylPREDNISolone Dose Pack See Taper PO DAILY 03/17/17 03/17/17 [Medrol Dose Pack] predniSONE 50 mg PO ONCE PRN 03/17/17 03/17/17 Allergies Allergy/AdvReac Type Severity Reaction Status Date / Time cefazolin [From Kefzol] Allergy Severe Rash/Hives Verified 03/17/17 14:15 daptomycin Allergy Dyspnea Verified 03/17/17 14:17 sulfamethoxazole Allergy Dyspnea Verified 03/17/17 14:17 [From Bactrim] trimethoprim [From Bactrim] Allergy Dyspnea Verified 03/17/17 14:17 vancomycin Allergy Anaphylaxis Verified 03/17/17 14:15 Review of Systems ROS Statement: Those systems with pertinent positive or pertinent negative responses have been documented in the HPI. ROS Other: All systems not noted in ROS Statement are negative. Past Medical History Past Medical History: Cancer, GERD/Reflux, Hyperlipidemia, Musculoskeletal Disorder, Osteoarthritis (OA) Additional Past Medical History / Comment(s): LT FOOT INFECTION PT HAS BEEN DEALING WITH FOR SEVERL MONTHS HAS PICC LINE/HYPERBARIC TX AND SEES DR FREED AT [facility] neuropathy, raynaulds, gout, CHILD HAD HEART MURMUR, HIATAL HERNIA, VIT D DEFICIENCY, INCONT OF URINE, ORAL CANCER History of Any Multi-Drug Resistant Organisms: MRSA Date of last positivie culture/infection: 1998 MDRO Source:: toe Past Surgical History: Adenoidectomy, Bladder Surgery, Heart Catheterization, Tonsillectomy, Tubal Ligation Additional Past Surgical History / Comment(s): 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 ), SINUS BX-NEG, COLONOSCOPY, MICHELLE BREAST BX-NEG, MICHELLE CATARACTS, PT WAS BORN WITH EXTRA THUMB ON RT HAND HAD IT SX REMOVED WHEN SHE WAS AN .BLADDER SUSPENSION, CARBAJAL NEUROMA REMOVED Past Anesthesia/Blood Transfusion Reactions: No Reported Reaction Past Psychological History: No Psychological Hx Reported Smoking Status: Never smoker - Past Family History Son(s) Family Medical History: No Reported History Sister(s) Family Medical History: Diabetes Mellitus Brother(s) Family Medical History: No Reported History Mother Family Medical History: Cancer Additional Family Medical History / Comment(s): PANCREATIC CANCER Father Family Medical History: Congestive Heart Failure (CHF) Additional Family Medical History / Comment(s): POLIO Daughter(s) Family Medical History: Cancer Additional Family Medical History / Comment(s): BRAIN General Exam Limitations: no limitations General appearance: alert, in no apparent distress Head exam: Present: atraumatic, normocephalic Eye exam: Present: normal appearance, PERRL ENT exam: Present: normal exam Neck exam: Present: normal inspection. Absent: tenderness, meningismus Respiratory exam: Present: normal lung sounds bilaterally. Absent: respiratory distress Cardiovascular Exam: Present: regular rate, normal rhythm GI/Abdominal exam: Present: soft. Absent: distended, tenderness Extremities exam: Present: other (Also on the plantar surface of the left foot at the base of the great toe, no surrounding cellulitis, minimal drainage) Neurological exam: Present: alert, oriented X3, CN II-XII intact. Absent: motor sensory deficit Psychiatric exam: Present: normal affect, normal mood Skin exam: Present: warm, rash, erythema, urticaria (Generalized urticarial rash ) Course Vital Signs 03/17/17 03/17/17 14:12 14:39 Temperature 97.4 F L Pulse Rate 93 85 Respiratory 22 22 Rate Blood Pressure 154/66 150/65 O2 Sat by Pulse 100 100 Oximetry Medical Decision Making - Medical Decision Making 81-year-old female presenting with generalized hives. Patient received first dose of daptomycin this morning, hives have been present for greater than 24 hours, likely reaction to daptomycin. Patient was previously on cefazolin this has been discontinued. She is evaluated by her infectious disease doctor Dr. Richmond in the emergency department, recommends patient receive vancomycin infused very slowly to avoid previous red man reaction. Patient will be observed overnight. - Lab Data Result diagrams: 03/17/17 14:27 03/17/17 14:27 Lab Results 03/17/17 03/17/17 Range/Units 14:27 14:27 WBC 22.1 H (3.8-10.6) k/uL RBC 4.74 (3.80-5.40) m/uL Hgb 13.7 (11.4-16.0) gm/dL Hct 41.4 (34.0-46.0) % MCV 87.3 (80.0-100.0) fL MCH 28.8 (25.0-35.0) pg MCHC 33.0 (31.0-37.0) g/dL RDW 13.0 (11.5-15.5) % Plt Count 454 H (150-450) k/uL Neutrophils % 65 % Lymphocytes % 29 % Monocytes % 3 % Eosinophils % 0 % Basophils % 0 % Neutrophils # 14.4 H (1.3-7.7) k/uL Lymphocytes # 6.5 H (1.0-4.8) k/uL Monocytes # 0.7 (0-1.0) k/uL Eosinophils # 0.0 (0-0.7) k/uL Basophils # 0.1 (0-0.2) k/uL Manual Slide Review Performed Toxic Granulation Present Sodium 141 (137-145) mmol/L Potassium 4.1 (3.5-5.1) mmol/L Chloride 105 (98-107) mmol/L Carbon Dioxide 22 (22-30) mmol/L Anion Gap 14 mmol/L BUN 23 H (7-17) mg/dL Creatinine 0.70 (0.52-1.04) mg/dL Est GFR (MDRD) Af Amer >60 (>60 ml/min/1.73 sqM) Est GFR (MDRD) Non-Af >60 (>60 ml/min/1.73 sqM) Glucose 151 H (74-99) mg/dL Calcium 9.2 (8.4-10.2) mg/dL Total Bilirubin 0.5 (0.2-1.3) mg/dL AST 19 (14-36) U/L ALT 25 (9-52) U/L Alkaline Phosphatase 61 (38-126) U/L Total Protein 6.6 (6.3-8.2) g/dL Albumin 3.7 (3.5-5.0) g/dL Disposition Clinical Impression: Adverse reaction to drug, Infection of left foot Disposition: ADMITTED IP TO THIS [facility] Condition: Stable Referrals: John Schwartz MD [STAFF PHYSICIAN] - 1-2 days Decision to Admit Reason: Admit from EC Decision Date: 03/17/17 Decision Time: 15:48
[2017-03-17 14:57] LABS: ALT 25 U/L (9-52); AST 19 U/L (14-36); Albumin 3.7 g/dL (3.5-5.0); Alkaline Phosphatase 61 U/L (38-126); Anion Gap 14 mmol/L; Blood Urea Nitrogen 23 mg/dL (7-17); Calcium 9.2 mg/dL (8.4-10.2); Carbon Dioxide 22 mmol/L (22-30); Chloride 105 mmol/L (98-107); Glucose 151 mg/dL (74-99); Potassium 4.1 mmol/L (3.5-5.1); Sodium 141 mmol/L (137-145); Total Bilirubin 0.5 mg/dL (0.2-1.3); Total Protein 6.6 g/dL (6.3-8.2)
[2017-03-17 15:09] LABS: Basophils # (A) 0.1 k/uL (0-0.2); Basophils % (A) 0 %; Eosinophils % (A) 0 %; HCT 41.4 % (34.0-46.0); HGB 13.7 gm/dL (11.4-16.0); Lymphocytes % (A) 29 %; MCH 28.8 pg (25.0-35.0); MCV 87.3 fL (80.0-100.0); Mean Platelet Volume 7.3; Monocytes # (A) 0.7 k/uL (0-1.0); Monocytes % (A) 3 %; Neutrophils # (A) 14.4 k/uL (1.3-7.7); Neutrophils % (A) 65 %; Platelet Count 454 k/uL (150-450); RBC 4.74 m/uL (3.80-5.40); WBC 22.1 k/uL (3.8-10.6)
[2017-03-17 15:12] LABS: Lymphocytes # (A) 6.5 k/uL (1.0-4.8)
[2017-03-17 15:30] LABS: Toxic Granulation Present
--- NOTE | 2017-03-17 15:43 | XR ---
EXAMINATION TYPE: XR chest 2V DATE OF EXAM: 03/17/2017 COMPARISON: 02/27/2016 HISTORY: 51 year-old female shortness of breath, difficulty in breathing TECHNIQUE: AP and lateral views FINDINGS: Heart upper limits of normal in size. Rightward patient rotation. Mild diffuse interstitial prominenc e similar to prior. Some patchy atelectasis at the left base. No pleural effusion seen on the lateral view. IMPRESSION: Chronic changes. Some patchy left basilar atelectasis. No salvador infiltrate.
[2017-03-17] MEDS ORDERED: IBUPROFEN 400 MG TAB PO PRN (15:44)
[2017-03-17] MEDS ORDERED: VANCOMYCIN 1,500 MG in SODIUM CHLORIDE 0.9% 250 ML IVPB ONE (15:44)
[2017-03-17] MEDS ORDERED: ACETAMINOPHEN TAB 325 MG TAB PO PRN (15:44)
[2017-03-17] MEDS ORDERED: NALOXONE 0.4 MG/ML 1 ML VIAL IV PRN (15:44)
[2017-03-17] MEDS ORDERED: diphenhydrAMINE 25 MG CAP PO PRN (15:48)
[2017-03-17] MEDS: ASPIRIN 81 MG PO SCH (18:09)
[2017-03-17] MEDS: ALLOPURINOL 100 MG TAB PO SCH (20:25)
[2017-03-17] MEDS: PRAVASTATIN SODIUM 40 MG TAB PO SCH (20:25)
[2017-03-17] MEDS ORDERED: VANCOMYCIN IV PER PHARMACY 1 EACH MISC MISCELLANE PRN (22:15)
--- NOTE | 2017-03-17 22:54 | CONS ---
CONSULTATION DATE OF SERVICE: 03/17/2017. REASON FOR CONSULTATION: 1. Left foot MSSA osteomyelitis. 2. Drug reaction. 3. Questionable anaphylaxis. HISTORY OF PRESENT ILLNESS: The patient is an 81-year-old female who was recently admitted to [facility] with a nonhealing wound to the plantar aspect of the left foot. Cultures were positive for MSSA and the bone scan was suspicious for osteomyelitis. Patient did get a PICC line and was advised a 6-week course of IV cefazolin, which the patient is currently getting at [facility]. The patient apparently developed a rash with significant welts yesterday morning for which the patient was evaluated in the office. cefazolin was discontinued. The patient previously did have a problem with vancomycin with red man syndrome; hence, was advised daptomycin at 6 mg/kg. The patient was also advised a Medrol Dosepak because of the extensive rash the patient has, in addition to the Benadryl. This morning, the patient did receive 1 dose of the daptomycin. Patient also feeling nauseous and did have episode of vomiting. Subsequently she was given prednisone and says afterward she did have multiple episodes of vomiting. The patient continued to feel poorly throughout the day and in the afternoon she was having more shortness of breath and also some cough. Hence, the patient was brought to the [facility] ER for further evaluation of the same. The patient has been evaluated by the ER physician. She did have a chest x-ray showing some atelectasis, but no pneumonia. In view of her multiple antibiotic allergies with a previous a problem with vancomycin mostly with red man syndrome, it was decided to keep the patient overnight to be evaluated closely for vancomycin infusion before sending her back. As for the left foot, overall swelling and redness has improved and the wound has dried out. She has been complaining of pain in the epigastric area. No further vomiting or any diarrhea. REVIEW OF SYSTEMS: CONSTITUTIONAL: Positive for weakness, but no fever. EYES: No complaint. ENT: No complaint. RESPIRATORY: As per HPI. CARDIOVASCULAR: No complaint. GENITOURINARY: No complaint. GASTROINTESTINAL: As per HPI. MUSCULOSKELETAL: As per HPI. INTEGUMENTARY: As per HPI. PSYCHOLOGICAL: No complaint. ENDOCRINE: No complaint. NEUROLOGIC: No complaint. 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 SOCIAL HISTORY: The patient is . No history of smoking, drinking or drug use. FAMILY HISTORY: Sister with diabetes. Mother with history of pancreatic cancer. Father with history of polio and congestive heart failure. ALLERGIES: To CEFAZOLIN, BACTRIM and VANCOMYCIN with red man syndrome. MEDICATIONS: Include the patient is currently on: 1. Tylenol. 2. Zyloprim. 3. Norvasc. 4. Aspirin. 5. Benadryl. 6. Motrin. 7. Narcan. 8. Pravachol and. 9. Vancomycin. EXAMINATION: Her blood pressure is 149/65 with a pulse of 74, temperature 97.6. She is 99% on room air. General description is an elderly female lying in bed in no distress. No tachypnea or accessory muscle of respiration use. HEENT: No pallor or scleral icterus. Oral mucous membranes dry. NECK: Trachea central. No thyromegaly. LUNGS: Unlabored breathing. Clear to auscultation anteriorly. No wheeze or crackle. HEART: S1, S2. Regular rate and rhythm. ABDOMEN: Soft. Minimal tenderness in the epigastric area. No guarding or rigidity. EXTREMITIES: No edema of feet. Left foot: The wound has decreased in size, has dried out. The surrounding swelling and redness has improved. Skin shows a maculopapular rash about the same compared to yesterday. NEUROLOGICAL: Patient is awake, alert, oriented x3. Mood and affect normal. LABS: Hemoglobin 13.7, white count 22.1 with a BUN of 23, creatinine 0.70. Electrolytes have been normal. Liver enzymes are normal. Chest x-ray with infiltrate. No pneumonia. DIAGNOSTIC IMPRESSION: 1. Patient presented to hospital with increasing shortness of breath, multiple episodes of nausea, vomiting and epigastric discomfort which were related to the gastritis, especially with symptoms getting worse with the use of the prednisone. Clinically doubt any allergy to daptomycin, as she received only 1 dose and never been exposed to it in the past. 2. Patient with left foot osteomyelitis with methicillin-sensitive Staphylococcus aureus, now with rash secondary to Cefazolin. PLAN: 1. Recommend vancomycin. Pharmacy to dose. This were discussed in detail with the ER physician. She will be getting a dose in the ER. She will be closely monitored. If the patient tolerates, she will continue vancomycin. Pharmacy to dose, target of 15. 2. She will be given and Pepcid for her gastritis symptoms with Maalox. and solumedrol Iv x 4 doses for her extensive rash 3. Aquacel silver packing of the wound. 4. If the patient tolerates vancomycin, she will go back to [facility] to finish her therapy. Family was present at bedside. All their questions were answered. MMODL / IJN: [id number] / MTDD
[2017-03-17] MEDS: MAG HYDROX/AL HYDROX/SIMETH 30 ML CUP PO SCH (23:17)
[2017-03-17] MEDS: methylPREDNISolone SOD SUCCI 125 MG/2 ML VIAL IV SCH (23:18)
[2017-03-18] MEDS: VANCOMYCIN 1,500 MG in SODIUM CHLORIDE 0.9% 250 ML IVPB SCH ×2 (04:11→17:04)
[2017-03-18] MEDS: methylPREDNISolone SOD SUCCI 125 MG/2 ML VIAL IV SCH ×2 (05:27→12:37)
[2017-03-18 08:23] LABS: Anion Gap 8 mmol/L; Blood Urea Nitrogen 14 mg/dL (7-17); Calcium 8.8 mg/dL (8.4-10.2); Carbon Dioxide 25 mmol/L (22-30); Chloride 109 mmol/L (98-107); Glucose 134 mg/dL (74-99); Potassium 4.2 mmol/L (3.5-5.1); Sodium 142 mmol/L (137-145)
[2017-03-18] MEDS: amLODIPine 5 MG TAB PO SCH (08:25)
[2017-03-18] MEDS: FAMOTIDINE 20 MG TAB PO SCH ×2 (08:25→20:48)
[2017-03-18] MEDS: MAG HYDROX/AL HYDROX/SIMETH 30 ML CUP PO SCH ×4 (08:27→20:49)
[2017-03-18 09:47] VITALS: BMI 27.9
--- NOTE | 2017-03-18 12:59 | P.HPIM ---
History of Present Illness H&P Date: 03/18/17 Chief Complaint: ALLERGIC reaction This is a 81-year-old female who presented from a care home facility with diffuse hives and the suspected ALLERGIC reaction to Kefzol. Patient was recently diagnosed with suspected osteomyelitis of the left foot and was discharged to a local extended care facility with a PICC line to finish antibiotic course with Kefzol. Yesterday she was noted to have worsening rash and she was sent to the infectious disease clinic where her antibiotic were changed to daptomycin area she was started on a Medrol Dosepak. She returned to the care home but her skin rash got worse and patient started feeling sick and was nauseous as well as vomiting. She was sent to the emergency room for further evaluation. She was treated with steroid and Benadryl. She said that she is feeling a lot better today. Her skin rash has resolved. She was started on IV vancomycin. Apparently she had an ALLERGIC reaction to IV vancomycin in the past and plan is to continue monitoring for 24 hours. So far she is tolerating the treatment with no problems. Review of Systems Review of system: 14 points review of systems were obtained and were negative except to what were mentioned in the HPI. Past Medical History Past Medical History: Cancer, GERD/Reflux, Hyperlipidemia, Musculoskeletal Disorder, Osteoarthritis (OA) Additional Past Medical History / Comment(s): LT FOOT INFECTION PT HAS BEEN DEALING WITH FOR SEVERL MONTHS HAS PICC LINE/HYPERBARIC TX AND SEES DR FREED AT [facility] on fridays. neuropathy, raynaulds, gout, CHILD HAD HEART MURMUR, HIATAL HERNIA, VIT D DEFICIENCY, INCONT OF URINE, ORAL CANCER History of Any Multi-Drug Resistant Organisms: MRSA Date of last positivie culture/infection: 1998 MDRO Source:: toe Past Surgical History: Adenoidectomy, Bladder Surgery, Heart Catheterization, Tonsillectomy, Tubal Ligation Additional Past Surgical History / Comment(s): 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 ), SINUS BX-NEG, COLONOSCOPY, MICHELLE BREAST BX-NEG, MICHELLE CATARACTS, PT WAS BORN WITH EXTRA THUMB ON RT HAND HAD IT SX REMOVED WHEN SHE WAS AN INFANT.BLADDER SUSPENSION, CARBAJAL NEUROMA REMOVED Past Anesthesia/Blood Transfusion Reactions: No Reported Reaction Smoking Status: Never smoker - Past Family History Son(s) Family Medical History: No Reported History Sister(s) Family Medical History: Diabetes Mellitus Brother(s) Family Medical History: No Reported History Mother Family Medical History: Cancer Additional Family Medical History / Comment(s): PANCREATIC CANCER Father Family Medical History: Congestive Heart Failure (CHF) Additional Family Medical History / Comment(s): POLIO Daughter(s) Family Medical History: Cancer Additional Family Medical History / Comment(s): BRAIN Medications and Allergies Home Medications Medication Instructions Recorded Confirmed Type Allopurinol [Zyloprim] 100 mg PO HS 12/23/14 03/17/17 History Pravastatin Sodium [Pravachol] 40 mg PO HS@2100 12/23/14 03/17/17 History amLODIPine [Norvasc] 5 mg PO QAM 12/23/14 03/17/17 History Calcium Carbonate [Calcium] 600 mg PO DAILY@1700 12/30/14 03/17/17 History Fish Oil/Dha/Epa [Fish Oil 1,200 1 cap PO DAILY@1700 12/30/14 03/17/17 History mg Fish Oil] Aspirin EC [Ecotrin Low Dose] 81 mg PO DAILY@1700 04/09/15 03/17/17 History Cholecalciferol [Vitamin D3] 1,000 unit PO DAILY@1700 03/03/17 03/17/17 History Multivitamins, Thera [Multivitamin 1 tab PO DAILY@169903/03/17 03/17/17 History (formulary)] Acetaminophen [Tylenol Arthritis] 650 mg PO Q4H PRN 03/17/17 03/17/17 History Bisacodyl [Dulcolax] 10 mg RECTAL DAILY PRN 03/17/17 03/17/17 History DAPTOmycin [Cubicin] 400 mg IV DAILY 03/17/17 03/17/17 History Glucosamine-Chondr 500-400Mg 1 tab PO BID 03/17/17 03/17/17 History Hydrocortisone Cream 1 applic TOPICAL DIRECTED PRN 03/17/17 03/17/17 History [Hydrocortisone 1% Cream] Anselmo Packet 1 packet PO DAILY 03/17/17 03/17/17 History Magnesium Hydroxide [Milk of 2,400 mg PO DAILY PRN 03/17/17 03/17/17 History Magnesia] Na Phos,M-B/Na Phos,Di-Ba [Fleet 133 ml RECTAL DAILY PRN 03/17/17 03/17/17 History Adult] diphenhydrAMINE [Benadryl] 25 mg PO Q6H PRN 03/17/17 03/17/17 History methylPREDNISolone Dose Pack See Taper PO DAILY 03/17/17 03/17/17 History [Medrol Dose Pack] predniSONE 50 mg PO ONCE PRN 03/17/17 03/17/17 History Allergies Allergy/AdvReac Type Severity Reaction Status Date / Time cefazolin [From Kefzol] Allergy Severe Rash/Hives Verified 03/17/17 14:15 daptomycin Allergy Dyspnea Verified 03/17/17 14:17 sulfamethoxazole Allergy Dyspnea Verified 03/17/17 14:17 [From Bactrim] trimethoprim [From Bactrim] Allergy Dyspnea Verified 03/17/17 14:17 vancomycin Allergy Rash/Hives Verified 03/17/17 22:21 Physical Exam Vitals: Vital Signs Temp Pulse Pulse Resp BP BP Pulse Ox 03/18/17 06:13 98 F 68 20 130/72 97 03/17/17 23:00 98.0 F 67 16 129/57 96 03/17/17 17:47 97.6 F 74 16 149/65 99 03/17/17 17:06 98.4 F 73 18 139/63 96 03/17/17 16:20 76 18 126/59 99 03/17/17 14:39 85 22 150/65 100 03/17/17 14:12 97.4 F L 93 22 154/66 100 Intake and Output 03/17/17 03/18/17 03/18/17 22:59 06:59 14:59 Other: Voiding Method Toilet # Voids 2 3 1 Weight 76.204 kg Patient Weight 03/19/17 06:59 Weight 76.204 kg General: The patient is awake and alert, in no distress Eye: there is normal conjunctiva bilaterally. Neck: The neck is supple, there is no JVD. Cardiovascular: Normal S1-S2, no S3-S4, no murmurs. Respiratory: Lungs clear to auscultation bilaterally Gastrointestinal: Abdomen is soft, nontender Musculoskeletal: There is no pedal edema. Neurological:. Speech is normal. Skin: Skin is warm and dry Results CBC & Chem 7: 03/17/17 14:27 03/18/17 07:45 Labs: Abnormal Lab Results - Last 24 Hours (Table) 03/17/17 03/17/17 03/18/17 Range/Units 14:27 14:27 07:45 WBC 22.1 H (3.8-10.6) k/uL Plt Count 454 H (150-450) k/uL Neutrophils # 14.4 H (1.3-7.7) k/uL Lymphocytes # 6.5 H (1.0-4.8) k/uL Chloride 109 H (98-107) mmol/L BUN 23 H (7-17) mg/dL Glucose 151 H 134 H (74-99) mg/dL Assessment and Plan Assessment: 1. ALLERGIC reaction with diffuse hives. Most likely to cefazolin versus daptomycin. Seen and evaluated by infectious disease. Antibiotic changed to vancomycin. Patient is tolerating well with no issues. We'll continue to monitor closely. 2. Osteomyelitis of the left foot involving the left first digit currently on IV antibiotic as directed by infectious disease. 3. Essential hypertension, blood pressure well-controlled 4. Chronic gout with no evidence of flareups 5. Mixed hyperlipidemia on pravastatin Patient's overall condition improved significantly. Her skin rash is almost resolved. We will continue Benadryl and famotidine. Change steroids to oral prednisone. Anticipate discharge back to ECF within the next day or 2.
[2017-03-18] MEDS: ASPIRIN 81 MG PO SCH (17:06)
[2017-03-18] MEDS: PRAVASTATIN SODIUM 40 MG TAB PO SCH (20:48)
[2017-03-18] MEDS: ALLOPURINOL 100 MG TAB PO SCH (20:48)
--- NOTE | 2017-03-18 23:34 | PN ---
PROGRESS NOTE DATE OF SERVICE: 03/18/2017 REASON FOR FOLLOWUP: 1. Drug rash. 2. Left foot MSSA, osteomyelitis. INTERVAL HISTORY: The patient is afebrile. She is breathing comfortably. Her rash has resolved. She has tolerated vancomycin without any problem. The epigastric discomfort has improved. No nausea. No vomiting. Denies any pain in her left foot area. EXAMINATION: Blood pressure 152/66 with a pulse of 74, temperature of 97.2. She is 97% on room air. General description is an elderly female, up in the bed in no distress. RESPIRATORY SYSTEM: Unlabored breathing. Clear to auscultation anteriorly. HEART: S1, S2. Regular rate and rhythm. ABDOMEN: Soft. No tenderness. LABS: BUN of 20, creatinine 0.52. DIAGNOSTIC IMPRESSION AND PLAN: 1. Patient with acute allergic reaction most likely secondary to cefazolin that has been discontinued. The rash has resolved. Steroid can be tapered off or discontinued altogether and better to be used as needed. 2. Left foot methicillin-sensitive Staphylococcus aureus osteomyelitis. Overall improvement. Local wound care to continue with Aquacel silver dressing and vancomycin, Pharmacy to dose to target of 15. Watching her kidney function closely. MMODL / IJN: [id number] / ALECIA
[2017-03-19] MEDS: VANCOMYCIN 1,500 MG in SODIUM CHLORIDE 0.9% 250 ML IVPB SCH ×2 (05:08→16:36)
[2017-03-19 08:38] LABS: Anion Gap 8 mmol/L; Blood Urea Nitrogen 18 mg/dL (7-17); Carbon Dioxide 27 mmol/L (22-30); Chloride 107 mmol/L (98-107); Glucose 95 mg/dL (74-99); Potassium 4.5 mmol/L (3.5-5.1); Sodium 142 mmol/L (137-145)
[2017-03-19] MEDS: MAG HYDROX/AL HYDROX/SIMETH 30 ML CUP PO SCH ×4 (09:45→21:17)
[2017-03-19] MEDS: amLODIPine 5 MG TAB PO SCH (09:46)
[2017-03-19] MEDS: predniSONE 20 MG TAB PO SCH (09:46)
[2017-03-19] MEDS: FAMOTIDINE 20 MG TAB PO SCH ×2 (09:46→21:17)
--- NOTE | 2017-03-19 15:09 | P.PN ---
Subjective Progress Note Date: 03/19/17 Patient is doing well today. No events overnight. No adverse reaction from vancomycin. Her rash is completely resolved. Objective - Vital Signs Vital signs: Vital Signs Temp 97.3 F L 03/19/17 07:00 Pulse 67 03/19/17 07:00 Resp 16 03/19/17 07:00 BP 117/53 03/19/17 07:00 Pulse Ox 97 03/19/17 07:00 Intake & Output 03/18/17 03/19/17 03/19/17 18:59 06:59 18:59 Intake Total 490 Balance 490 Weight 76.204 kg Intake: Intake, IV Titration 250 Amount Vancomycin 1,500 mg In 250 Sodium Chloride 0.9% 250 ml @ 83.333 mls/hr IVPB Q12H W[facility] Rx#:[id number] Oral 240 Other: # Voids 3 2 # Bowel Movements 1 - Exam General: The patient is awake and alert, in no distress Eye: there is normal conjunctiva bilaterally. Neck: The neck is supple, there is no JVD. Cardiovascular: Normal S1-S2, no S3-S4, no murmurs. Respiratory: Lungs clear to auscultation bilaterally Gastrointestinal: Abdomen is soft, nontender Musculoskeletal: There is no pedal edema. Neurological:. Speech is normal. Skin: Skin is warm and dry - Labs CBC & Chem 7: 03/17/17 14:27 03/19/17 07:48 Labs: Abnormal Lab Results - Last 24 Hours (Table) 03/19/17 Range/Units 07:48 BUN 18 H (7-17) mg/dL Assessment and Plan Assessment: 1. ALLERGIC reaction with diffuse hives. Most likely to cefazolin versus daptomycin. Seen and evaluated by infectious disease. Antibiotic changed to vancomycin. Patient is tolerating well with no issues. We'll continue to monitor closely. 2. Osteomyelitis of the left foot involving the left first digit currently on IV vancomycin pharmacy to dose with a target of 15 as directed by infectious disease. 3. Essential hypertension, blood pressure well-controlled 4. Chronic gout with no evidence of flareups 5. Mixed hyperlipidemia on pravastatin Patient is medically cleared for discharge. She needs to return to [facility] where she came from. Awaiting social work possibly discharge on Monday tomorrow.
[2017-03-19] MEDS ORDERED: VANCOMYCIN TROUGH DUE 1 EACH MISC MISCELLANE ONE (16:00)
[2017-03-19] MEDS: ASPIRIN 81 MG PO SCH (16:36)
[2017-03-19] MEDS: PRAVASTATIN SODIUM 40 MG TAB PO SCH (21:17)
[2017-03-19] MEDS: ALLOPURINOL 100 MG TAB PO SCH (21:17)
[2017-03-19 23:59] VITALS: RESP 16
[2017-03-20] MEDS: VANCOMYCIN 1,500 MG in SODIUM CHLORIDE 0.9% 250 ML IVPB SCH (05:11)
--- NOTE | 2017-03-20 07:00 | PN ---
PROGRESS NOTE DATE OF SERVICE: 03/19/2017 REASON FOR FOLLOWUP: 1. Left foot MSSA osteomyelitis. 2. Drug rash. INTERVAL HISTORY: The patient is afebrile. She did mention she did have a panic attack earlier this morning; however, subsequently did have no further issue. The patient denies having any chest pain. No shortness of breath or cough. No abdominal pain or any diarrhea. PHYSICAL EXAMINATION: On examination, blood pressure is 160/70 with a pulse of 73, temperature of 97.8. She is 98% on room air. General description is an elderly female, lying in bed, in no distress. RESPIRATORY SYSTEM: Unlabored breathing, clear to auscultation anteriorly. HEART: S1, S2. Regular rate and rhythm. ABDOMEN: Soft. No tenderness. Left foot overall swelling and redness has improved, minimal drainage on dressing changes. LABS: BUN of 18, creatinine 0.56. Vancomycin trough of 12.7. DIAGNOSTIC IMPRESSION AND PLAN: 1. Patient with left foot MSSA infected wound with osteomyelitis with significant rash to the cefazolin. Currently tolerating vancomycin. Plan to finish therapy with IV vancomycin for another 5 weeks. 2. Local wound care with Aquacel Silver packing. RN has been advised to apply dry. MMODL / IJN: [id number] / ALECIA
[2017-03-20 07:59] VITALS: BP 170/72; PULSE 54; TEMP 97
[2017-03-20] MEDS: MAG HYDROX/AL HYDROX/SIMETH 30 ML CUP PO SCH ×2 (08:08→12:44)
[2017-03-20] MEDS: predniSONE 20 MG TAB PO SCH (08:08)
[2017-03-20] MEDS: FAMOTIDINE 20 MG TAB PO SCH (08:08)
[2017-03-20] MEDS: amLODIPine 5 MG TAB PO SCH (08:08)
[2017-03-20 09:50] LABS: Anion Gap 11 mmol/L; Blood Urea Nitrogen 16 mg/dL (7-17); Calcium 8.8 mg/dL (8.4-10.2); Carbon Dioxide 25 mmol/L (22-30); Chloride 105 mmol/L (98-107); Glucose 139 mg/dL (74-99); Potassium 3.7 mmol/L (3.5-5.1); Sodium 141 mmol/L (137-145)
--- NOTE | 2017-03-20 11:05 | P.DS ---
Providers Date of admission: 03/17/17 15:46 Expected date of discharge: 03/20/17 Attending physician: John Schwartz Consults: 03/17/17 15:45 Consult Physician Urgent Consulting Provider: Niall Richmond Consult Reason/Comments: Possible ALLERGIC reaction, ulcer Do you want consulting provider notified?: Already Contacted Primary care physician: Niall Richmond Hospital Course: 1. ALLERGIC reaction with diffuse hives. Most likely to cefazolin versus daptomycin. Seen and evaluated by infectious disease. Antibiotic changed to vancomycin. Patient is tolerating well with no issues. We'll continue to monitor closely. 2. Osteomyelitis of the left foot involving the left first digit currently on IV vancomycin pharmacy to dose with a target of 15 as directed by infectious disease. 3. Essential hypertension, blood pressure well-controlled 4. Chronic gout with no evidence of flareups 5. Mixed hyperlipidemia on pravastatin Discharge back to [facility]. Patient Condition at Discharge: Stable Plan - Discharge Summary Discharge Rx Participant: No New Discharge Prescriptions: Continue amLODIPine [Norvasc] 5 mg PO QAM Pravastatin Sodium [Pravachol] 40 mg PO HS@2100 Allopurinol [Zyloprim] 100 mg PO HS Fish Oil/Dha/Epa [Fish Oil 1,200 mg Fish Oil] 1 cap PO DAILY@1700 Calcium Carbonate [Calcium] 600 mg PO DAILY@1700 Aspirin EC [Ecotrin Low Dose] 81 mg PO DAILY@1700 Multivitamins, Thera [Multivitamin (formulary)] 1 tab PO DAILY@1700 Cholecalciferol [Vitamin D3] 1,000 unit PO DAILY@1700 Acetaminophen [Tylenol Arthritis] 650 mg PO Q4H PRN PRN Reason: Pain Glucosamine-Chondr 500-400Mg 1 tab PO BID Hydrocortisone Cream [Hydrocortisone 1% Cream] 1 applic TOPICAL DIRECTED PRN PRN Reason: Itching Anselmo Packet 1 packet PO DAILY Magnesium Hydroxide [Milk of Magnesia] 2,400 mg PO DAILY PRN PRN Reason: Constipation Discontinued DAPTOmycin [Cubicin] 400 mg IV DAILY Bisacodyl [Dulcolax] 10 mg RECTAL DAILY PRN PRN Reason: Constipation diphenhydrAMINE [Benadryl] 25 mg PO Q6H PRN PRN Reason: Itching methylPREDNISolone Dose Pack [Medrol Dose Pack] See Taper PO DAILY Na Phos,M-B/Na Phos,Di-Ba [Fleet Adult] 133 ml RECTAL DAILY PRN PRN Reason: Constipation predniSONE 50 mg PO ONCE PRN PRN Reason: HIVES Discharge Medication List Allopurinol [Zyloprim] 100 mg PO HS 12/23/14 [History] Pravastatin Sodium [Pravachol] 40 mg PO HS@2100 12/23/14 [History] amLODIPine [Norvasc] 5 mg PO QAM 12/23/14 [History] Calcium Carbonate [Calcium] 600 mg PO DAILY@169912/30/14 [History] Fish Oil/Dha/Epa [Fish Oil 1,200 mg Fish Oil] 1 cap PO DAILY@169912/30/14 [ History] Aspirin EC [Ecotrin Low Dose] 81 mg PO DAILY@169904/09/15 [History] Cholecalciferol [Vitamin D3] 1,000 unit PO DAILY@169903/03/17 [History] Multivitamins, Thera [Multivitamin (formulary)] 1 tab PO DAILY@169903/03/17 [ History] Acetaminophen [Tylenol Arthritis] 650 mg PO Q4H PRN 03/17/17 [History] Glucosamine-Chondr 500-400Mg 1 tab PO BID 03/17/17 [History] Hydrocortisone Cream [Hydrocortisone 1% Cream] 1 applic TOPICAL DIRECTED PRN 03/17/17 [History] Anselmo Packet 1 packet PO DAILY 03/17/17 [History] Magnesium Hydroxide [Milk of Magnesia] 2,400 mg PO DAILY PRN 03/17/17 [History] Follow up Appointment(s)/Referral(s): John Schwartz MD [STAFF PHYSICIAN] - 1-2 days Discharge Disposition: TRANSFER TO SNF/ECF
--- NOTE | 2017-03-20 15:09 | PN ---
PROGRESS NOTE DATE OF SERVICE: 03/20/2017. REASON FOR FOLLOWUP: 1. Left foot MSSA osteomyelitis. 2. Drug thrush. INTERVAL HISTORY: The patient is afebrile. She is breathing comfortably. Did mention she not did have a good night's sleep, but no chest pain, no shortness of breath. No cough. No further rash. No abdominal pain or diarrhea. EXAMINATION: Blood pressure 150/80 with a pulse of 54, temperature of 97, she is 97% on room air. General description is an elderly female up in the bed, up in no distress. Respiratory system unlabored breathing, clear to auscultation anteriorly. Heart S1, S2. Regular rate and rhythm. Abdomen soft with no tenderness. Left foot is currently dressed , swelling and redness improved. No drainage. LABS: BUN of 15, creatinine 0.57. DIAGNOSTIC IMPRESSION AND PLAN: Patient with left foot osteomyelitis with MSSA developing significant rash to the cefazolin, doing well on vancomycin that will be continued, pharmacy to dose, target of 15 for another 5 weeks, Aquacel Silver packing to the wound. I will see the patient In the office in 2 weeks time. MMODL / IJN: [id number] / MTDD
[2017-03-20] MEDS ORDERED: VANCOMYCIN 1,750 MG in SODIUM CHLORIDE 0.9% 250 ML IVPB SCH (17:00)
== END 2017-03-20 13:59 ==
LOC: EC 14:09 → 4MS4W 15:46
PROVIDERS: ADMIT Internal Medicine; ATTEND Internal Medicine
DX: L50.9 Urticaria, unspecified (principal); R21 Rash and other nonspecific skin eruption; T36.95XA Adverse effect of unspecified systemic antibiotic, initial encounter; M86.9 Osteomyelitis, unspecified; B95.61 Methicillin susceptible Staphylococcus aureus infection as the cause of diseases classified elsewhere; B37.9 Candidiasis, unspecified; I10 Essential (primary) hypertension; M1A.9XX0 Chronic gout, unspecified, without tophus (tophi); E78.2 Mixed hyperlipidemia; L97.529 Non-pressure chronic ulcer of other part of left foot with unspecified severity; L27.0 Generalized skin eruption due to drugs and medicaments taken internally; F41.0 Panic disorder [episodic paroxysmal anxiety]; K21.9 Gastro-esophageal reflux disease without esophagitis; E78.5 Hyperlipidemia, unspecified; M19.90 Unspecified osteoarthritis, unspecified site; Z95.828 Presence of other vascular implants and grafts; I73.00 Raynaud's syndrome without gangrene; G62.9 Polyneuropathy, unspecified; E55.9 Vitamin D deficiency, unspecified; R32 Unspecified urinary incontinence; R06.02 Shortness of breath; R06.4 Hyperventilation; R10.13 Epigastric pain; R05 Cough; R11.2 Nausea with vomiting, unspecified; Z79.82 Long term (current) use of aspirin; Z79.899 Other long term (current) drug therapy; Z85.819 Personal history of malignant neoplasm of unspecified site of lip, oral cavity, and pharynx; Z86.14 Personal history of Methicillin resistant Staphylococcus aureus infection; Z83.3 Family history of diabetes mellitus; Z80.0 Family history of malignant neoplasm of digestive organs; Z82.49 Family history of ischemic heart disease and other diseases of the circulatory system; Z88.1 Allergy status to other antibiotic agents; Z88.2 Allergy status to sulfonamides
CPT/HCPCS: 99285; 96375 ×3; 96361 ×5; 96365 ×2; 96376; 96366 ×4; 36415; 80053; 80048 ×3; 85025; 80202; 71046; G0378 ×4; J3370 ×4; J2930 ×2; J7512 ×2

== ENCOUNTER → 2017-03-23 | Outpatient (CLI) | payer OTHER, MEDICARE ==
--- NOTE | 2017-03-23 21:00 | US ---
EXAMINATION TYPE: US venous doppler duplex LE LT; left plantar ulcer x 25 years (pressure ulcer) with left great toe crossing over at left 2nd toe amputation site (had MRSA). DATE OF EXAM: 03/23/2017 2:17 PM LOWER EXTREMITY VENOUS INSUFFICIENCY SIDE PERFORMED: left 1) Color flow is present and patency is documented in the following vessels. No DVT or SVT is noted . Common Femoral Vein Deep Femoral Vein Femoral Vein Popliteal Vein Proximal Calf Veins Greater Saph Vein Upper Small Saph Vein 2) There is venous reflux noted at the following venous levels: 0 3) Incompetent perforators are noted at these levels: 0 Left groin lymph node is imaged = 4.5 x 2.3 x 1.0cm. IMPRESSION: 1. Left inguinal enlarged lymph node. 2. No suspicious deep venous thrombosis or reflux evident left lower extremity
--- NOTE | 2017-03-29 15:41 | P.ARTDOP ---
Arterial Doppler LOWER EXTREMITY ARTERIAL DOPPLER: DATE OF SERVICE: 03/23/2017 Reason for study: Left foot ulcer. Doppler waveforms: Multiphasic bilaterally throughout. Pulse volume recording: []. Pressure gradients: None of significance. Ankle-brachial indices: Greater than 1 bilaterally. Toe pressures: 63 on the right, not performed on the left Impression: Normal proximal flow study. Lower toe pressure on the right secondary to either vasospastic phenomenon or distal disease. Clinical correlation recommended.
== END | disposition home or self-care (01) ==
LOC: RADUSWWP 13:36
PROVIDERS: ATTEND Podiatrist
DX: R59.0 Localized enlarged lymph nodes (principal); M79.604 Pain in right leg
CPT/HCPCS: 93922

== ENCOUNTER → 2017-03-27 | Outpatient (CLI) | payer OTHER, MEDICARE ==
--- NOTE | 2017-03-28 13:25 | NM ---
EXAMINATION TYPE: NM WBC limited DATE OF EXAM: 03/28/2017 COMPARISON: Left foot x-ray March 03, 2017 HISTORY: Left foot in particular toe infection with nonhealing wound for months. TECHNIQUE: Following administration of 13.1 mCi Tc99m Ceretec. Images obtained 4 hour(s) and 24 rosa r(s) post injection of bilateral ankles and feet in multiple projections. FINDINGS: There is increase uptake at area of clinical concern on 4 hour and 24-hour delayed images left first toe suggestive of infectious process that corresponds to level of soft tissue swelling and subcutaneo us gas or ulceration on x-ray. No additional areas of suspicious radiotracer uptake identified. IMPRESSION: As above
== END | disposition home or self-care (01) ==
LOC: RADNMMAIN 06:34
PROVIDERS: ATTEND Podiatrist
DX: R94.8 Abnormal results of function studies of other organs and systems (principal)
CPT/HCPCS: 78805; A9569

== ENCOUNTER 2017-05-05 08:44 | Emergency (ER) | payer MEDICARE ==
--- NOTE | 2017-05-05 09:09 | ED ---
General Adult HPI - General Chief complaint: Shortness of Breath Stated complaint: SOB Time Seen by Provider: 05/05/17 08:55 Source: patient, RN notes reviewed Mode of arrival: wheelchair Limitations: no limitations - History of Present Illness Initial comments: 82-year-old female residing for dyspnea. Patient has multiple ongoing medical problems, she is diagnosed with oral cancer, awaiting oral surgery, she has nonhealing wound in the left ankle which is managed by podiatry at the wound center. She was scheduled for an appointment at the wound center today, instead she presents to the emergency department for evaluation of dyspnea. At the time my evaluation her dyspnea is resolved. She denies shortness of breath , denies cough, denies fever or chills, denies chest pain denies any pain complaints. Denies URI symptoms. - Related Data Home Medications Medication Instructions Recorded Confirmed Allopurinol [Zyloprim] 100 mg PO HS 12/23/14 04/28/17 Pravastatin Sodium [Pravachol] 40 mg PO HS@2100 12/23/14 04/28/17 amLODIPine [Norvasc] 5 mg PO QAM 12/23/14 04/28/17 Calcium Carbonate [Calcium] 600 mg PO DAILY@1700 12/30/14 04/28/17 Fish Oil/Dha/Epa [Fish Oil 1,200 1 cap PO DAILY@169912/30/14 04/28/17 mg Fish Oil] Aspirin EC [Ecotrin Low Dose] 81 mg PO DAILY@1700 04/09/15 04/28/17 Cholecalciferol [Vitamin D3] 1,000 unit PO DAILY@0 03/03/17 04/28/17 Multivitamins, Thera [Multivitamin 1 tab PO DAILY@169903/03/17 04/28/17 (formulary)] Acetaminophen [Tylenol Arthritis] 650 mg PO Q4H PRN 03/17/17 04/28/17 Glucosamine-Chondr 500-400Mg 1 tab PO BID 03/17/17 04/28/17 Hydrocortisone Cream 1 applic TOPICAL DIRECTED PRN 03/17/17 04/28/17 [Hydrocortisone 1% Cream] Anselmo Packet 1 packet PO DAILY 03/17/17 04/28/17 Magnesium Hydroxide [Milk of 2,400 mg PO DAILY PRN 03/17/17 04/28/17 Magnesia] diphenhydrAMINE [Benadryl] 25 mg PO BID 03/24/17 04/28/17 Ferrous Sulfate [Feosol] 325 mg PO DAILY 04/17/17 04/28/17 Allergies Allergy/AdvReac Type Severity Reaction Status Date / Time cefazolin [From Kefzol] Allergy Severe Rash/Hives Verified 05/05/17 08:46 daptomycin Allergy Dyspnea Verified 05/05/17 08:46 sulfamethoxazole Allergy Dyspnea Verified 05/05/17 08:46 [From Bactrim] trimethoprim [From Bactrim] Allergy Dyspnea Verified 05/05/17 08:46 vancomycin Allergy Rash/Hives Verified 05/05/17 08:46 Review of Systems ROS Statement: Those systems with pertinent positive or pertinent negative responses have been documented in the HPI. ROS Other: All systems not noted in ROS Statement are negative. Past Medical History Past Medical History: Cancer, GERD/Reflux, Hyperlipidemia, Musculoskeletal Disorder, Osteoarthritis (OA) Additional Past Medical History / Comment(s): LT FOOT INFECTION PT HAS BEEN DEALING WITH FOR SEVERL MONTHS HAS PICC LINE/HYPERBARIC TX AND SEES DR FREED AT [facility] on fridays. neuropathy, raynaulds, gout, CHILD HAD HEART MURMUR, HIATAL HERNIA, VIT D DEFICIENCY, INCONT OF URINE, ORAL CANCER History of Any Multi-Drug Resistant Organisms: MRSA Date of last positivie culture/infection: 2017 MDRO Source:: toe Past Surgical History: Adenoidectomy, Bladder Surgery, Heart Catheterization, Tonsillectomy, Tubal Ligation Additional Past Surgical History / Comment(s): 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 ), SINUS BX-NEG, COLONOSCOPY, MICHELLE BREAST BX-NEG, MICHELLE CATARACTS, PT WAS BORN WITH EXTRA THUMB ON RT HAND HAD IT SX REMOVED WHEN SHE WAS AN .BLADDER SUSPENSION, CARBAJAL NEUROMA REMOVED Past Anesthesia/Blood Transfusion Reactions: No Reported Reaction Past Psychological History: No Psychological Hx Reported Smoking Status: Never smoker Past Drug Use History: None Reported - Past Family History Son(s) Family Medical History: No Reported History Sister(s) Family Medical History: Diabetes Mellitus Brother(s) Family Medical History: No Reported History Mother Family Medical History: Cancer Additional Family Medical History / Comment(s): PANCREATIC CANCER Father Family Medical History: Congestive Heart Failure (CHF) Additional Family Medical History / Comment(s): POLIO Daughter(s) Family Medical History: Cancer Additional Family Medical History / Comment(s): BRAIN General Exam Limitations: no limitations General appearance: alert, in no apparent distress Head exam: Present: atraumatic, normocephalic Eye exam: Present: normal appearance, PERRL ENT exam: Present: normal exam Neck exam: Present: normal inspection. Absent: tenderness, meningismus Respiratory exam: Present: normal lung sounds bilaterally. Absent: respiratory distress, wheezes Cardiovascular Exam: Present: regular rate, normal rhythm GI/Abdominal exam: Present: soft. Absent: distended, tenderness Extremities exam: Present: other (Left lower extremity, wrapped.) Neurological exam: Present: alert, oriented X3, CN II-XII intact. Absent: motor sensory deficit Skin exam: Present: warm, dry. Absent: cyanosis, diaphoretic Course Vital Signs 05/05/17 05/05/17 05/05/17 08:46 09:51 10:00 Temperature 96.8 F L Pulse Rate 86 64 66 Respiratory 20 18 16 Rate Blood Pressure 138/63 134/55 115/56 O2 Sat by Pulse 100 100 100 Oximetry 05/05/17 11:00 Temperature Pulse Rate 60 Respiratory 16 Rate Blood Pressure 121/56 O2 Sat by Pulse 100 Oximetry EKG Findings - EKG Comments: EKG Findings:: EKG shows normal sinus rhythm, ventricular rate 75, MA interval 202, QRS duration 74, QTC 444, no ST segment elevation or depression Medical Decision Making - Medical Decision Making 82-year-old female presenting with dyspnea. Patient has current diagnosis of his oral cancer, she is scheduled for outpatient surgery in 5 days. She also has chronic left ankle infection, currently being managed by podiatry and infectious disease. She is off antibiotics at this time. She also has history of anemia, this is been managed by her primary care physician. Patient presenting with chief complaint of dyspnea, patient is comfortable on room air. Patient laboratory studies reveal white blood cell count 4.2, hemoglobin 7.1 from recent of 7.5. D-dimer is elevated, CT angiography is obtained is negative for PE, does show esophagitis. Chest x-ray negative for focal pneumonia. Within normal limits. Patient's dyspnea likely secondary to anemia. She states she has had outpatient workup for GI bleed, this was negative. She will return with worsening dyspnea or signs of worsening anemia. She was receiving blood work on Monday which is 4 days from now, her family instructed that her current hemoglobin is 7.1 and LDL give this information to her physician. If symptoms worsen, patient will return for likely transfusion. - Lab Data Result diagrams: 05/05/17 09:07 05/05/17 09:07 Lab Results 05/05/17 05/05/17 05/05/17 Range/Units 09:07 09:07 09:07 WBC 4.2 (3.8-10.6) k/uL RBC 2.63 L (3.80-5.40) m/uL Hgb 7.1 L (11.4-16.0) gm/dL Hct 20.8 L (34.0-46.0) % MCV 79.4 L (80.0-100.0) fL MCH 26.9 (25.0-35.0) pg MCHC 33.9 (31.0-37.0) g/dL RDW 12.1 (11.5-15.5) % Plt Count 414 (150-450) k/uL Neutrophils % 45 % Lymphocytes % 42 % Monocytes % 7 % Eosinophils % 3 % Basophils % 1 % Neutrophils # 1.9 (1.3-7.7) k/uL Lymphocytes # 1.8 (1.0-4.8) k/uL Monocytes # 0.3 (0-1.0) k/uL Eosinophils # 0.1 (0-0.7) k/uL Basophils # 0.0 (0-0.2) k/uL PT (9.0-12.0) sec INR (<1.2) APTT (22.0-30.0) sec D-Dimer (<0.60) mg/L FEU Sodium 141 (137-145) mmol/L Potassium 4.3 (3.5-5.1) mmol/L Chloride 106 (98-107) mmol/L Carbon Dioxide 23 (22-30) mmol/L Anion Gap 12 mmol/L BUN 17 (7-17) mg/dL Creatinine 0.61 (0.52-1.04) mg/dL Est GFR (CKD-EPI)AfAm >90 (>60 ml/min/1.73 sqM) Est GFR (CKD-EPI)NonAf 84 (>60 ml/min/1.73 sqM) Glucose 128 H (74-99) mg/dL Calcium 9.6 (8.4-10.2) mg/dL Magnesium 1.9 (1.6-2.3) mg/dL Total Bilirubin 0.4 (0.2-1.3) mg/dL AST 18 (14-36) U/L ALT 26 (9-52) U/L Alkaline Phosphatase 80 (38-126) U/L Total Creatine Kinase 27 L (30-135) U/L CK-MB (CK-2) 0.3 (0.0-2.4) ng/mL CK-MB (CK-2) Rel Index 1.1 Troponin I <0.012 (0.000-0.034) ng/mL Total Protein 7.0 (6.3-8.2) g/dL Albumin 4.0 (3.5-5.0) g/dL 05/05/17 Range/Units 09:07 WBC (3.8-10.6) k/uL RBC (3.80-5.40) m/uL Hgb (11.4-16.0) gm/dL Hct (34.0-46.0) % MCV (80.0-100.0) fL MCH (25.0-35.0) pg MCHC (31.0-37.0) g/dL RDW (11.5-15.5) % Plt Count (150-450) k/uL Neutrophils % % Lymphocytes % % Monocytes % % Eosinophils % % Basophils % % Neutrophils # (1.3-7.7) k/uL Lymphocytes # (1.0-4.8) k/uL Monocytes # (0-1.0) k/uL Eosinophils # (0-0.7) k/uL Basophils # (0-0.2) k/uL PT 10.7 (9.0-12.0) sec INR 1.1 (<1.2) APTT 20.0 L (22.0-30.0) sec D-Dimer 0.94 H (<0.60) mg/L FEU Sodium (137-145) mmol/L Potassium (3.5-5.1) mmol/L Chloride (98-107) mmol/L Carbon Dioxide (22-30) mmol/L Anion Gap mmol/L BUN (7-17) mg/dL Creatinine (0.52-1.04) mg/dL Est GFR (CKD-EPI)AfAm (>60 ml/min/1.73 sqM) Est GFR (CKD-EPI)NonAf (>60 ml/min/1.73 sqM) Glucose (74-99) mg/dL Calcium (8.4-10.2) mg/dL Magnesium (1.6-2.3) mg/dL Total Bilirubin (0.2-1.3) mg/dL AST (14-36) U/L ALT (9-52) U/L Alkaline Phosphatase (38-126) U/L Total Creatine Kinase (30-135) U/L CK-MB (CK-2) (0.0-2.4) ng/mL CK-MB (CK-2) Rel Index Troponin I (0.000-0.034) ng/mL Total Protein (6.3-8.2) g/dL Albumin (3.5-5.0) g/dL Disposition Clinical Impression: Anemia Disposition: HOME SELF-CARE Condition: Fair Instructions: Iron Deficiency Anemia (ED) Referrals: Niall Richmond MD [Primary Care Provider] - 1-2 days Time of Disposition: 13:17
[2017-05-05 09:31] LABS: Basophils % (A) 1 %; Eosinophils # (A) 0.1 k/uL (0-0.7); Eosinophils % (A) 3 %; HCT 20.8 % (34.0-46.0); HGB 7.1 gm/dL (11.4-16.0); Lymphocytes # (A) 1.8 k/uL (1.0-4.8); Lymphocytes % (A) 42 %; MCH 26.9 pg (25.0-35.0); MCHC 33.9 g/dL (31.0-37.0); MCV 79.4 fL (80.0-100.0); Mean Platelet Volume 7.3; Monocytes # (A) 0.3 k/uL (0-1.0); Monocytes % (A) 7 %; Neutrophils # (A) 1.9 k/uL (1.3-7.7); Neutrophils % (A) 45 %; Platelet Count 414 k/uL (150-450); RBC 2.63 m/uL (3.80-5.40); RDW 12.1 % (11.5-15.5); WBC 4.2 k/uL (3.8-10.6)
--- NOTE | 2017-05-05 09:33 | XR ---
EXAMINATION TYPE: XR chest 2V DATE OF EXAM: 05/05/2017 COMPARISON: 03/17/2017 HISTORY: Shortness of breath, weakness, and difficulty breathing TECHNIQUE: Frontal and lateral views of the chest are obtained. FINDINGS: The lungs are hypoventilatory in comparison to the prior exam. There is no focal air space opacity, pleural effusion, or pneumothorax seen. The cardiac silhouette size is within normal limit s. The osseous structures are intact. Moderate acromioclavicular arthropathy is seen on the right a nd mild on the left. Multilevel mild degenerative changes of the thoracic spine are seen. IMPRESSION: No acute cardiopulmonary process.
[2017-05-05 09:42] LABS: D-Dimer 0.94 mg/L FEU (<0.60)
[2017-05-05 09:43] LABS: ALT 26 U/L (9-52); AST 18 U/L (14-36); Alkaline Phosphatase 80 U/L (38-126); Anion Gap 12 mmol/L; Blood Urea Nitrogen 17 mg/dL (7-17); Calcium 9.6 mg/dL (8.4-10.2); Carbon Dioxide 23 mmol/L (22-30); Chloride 106 mmol/L (98-107); Glucose 128 mg/dL (74-99); Potassium 4.3 mmol/L (3.5-5.1); Sodium 141 mmol/L (137-145); Total Bilirubin 0.4 mg/dL (0.2-1.3)
[2017-05-05 09:49] LABS: INR 1.1 (<1.2); Prothrombin Time 10.7 sec (9.0-12.0)
[2017-05-05 10:10] LABS: Creatine Kinase 27 U/L (30-135)
[2017-05-05 10:23] LABS: Creatine Kinase MB 0.3 ng/mL (0.0-2.4); Troponin I <0.012 ng/mL (0.000-0.034)
[2017-05-05] MEDS ORDERED: RX INFO: IV CONTRAST WAS GIVEN 1 EACH MISC MISCELLANE PRN (11:26)
--- NOTE | 2017-05-05 12:28 | CT ---
EXAMINATION TYPE: CT angio chest DATE OF EXAM: 05/05/2017 12:13 PM COMPARISON: NONE HISTORY: SOB CT DLP: 226.8 mGycm Automated exposure control for dose reduction was used. CONTRAST: CTA scan of the thorax is performed with IV Contrast, patient injected with 91 mL of Omnipaque 350, p ulmonary embolism protocol. . FINDINGS: LUNGS: The lungs are grossly clear, there is no concerning parenchymal mass or nodule identified. T here is no pleural effusion or pneumothorax seen. The tracheobronchial tree is patent. Groundglass c hanges posteriorly compatible with dependent atelectasis MEDIASTINUM: There is no evidence of central pulmonary angles. The tertiary and distal branches are n ondiagnostic due to suboptimal contrast patient. Remaining branches enhance normally. Aorta of normal caliber. OTHER: Right adrenal gland calcification is stable dating back to CT scan of 06/09/2010. Small hiatal hernia and esophageal wall thickening also appears stable correlate for esophagitis. Mucosal lesion not excluded. Hypertrophic and degenerative change of the spine noted.. IMPRESSION: 1. Limited exam. No central pulmonary embolism. The distal branches are nondiagnostic due to suboptim al opacification. 2. Hiatal hernia with esophageal wall thickening correlate for esophagitis. 3. There is a right breast nodule measuring 5 mm correlate with mammography
[2017-05-05] MEDS ORDERED: FUROSEMIDE 10 MG/ML 2 ML VIAL IV STA (13:44)
[2017-05-05 17:05] VITALS: RESP 16
[2017-05-05 18:52] VITALS: BP 149/68; PULSE 65; TEMP 98
== END 2017-05-05 19:09 | disposition home or self-care (01) ==
LOC: EC 08:44
DX: D64.9 Anemia, unspecified (principal); S91.002A Unspecified open wound, left ankle, initial encounter; E78.5 Hyperlipidemia, unspecified; E55.9 Vitamin D deficiency, unspecified; Z86.14 Personal history of Methicillin resistant Staphylococcus aureus infection; Z95.5 Presence of coronary angioplasty implant and graft; Z79.82 Long term (current) use of aspirin; Z79.899 Other long term (current) drug therapy; Z88.1 Allergy status to other antibiotic agents; Z88.2 Allergy status to sulfonamides
CPT/HCPCS: 36415; 93005; 86900; 86901; 85379; 80053; 82550; 82553; 83735; 84484; 85025; 85610; 85730; 86850; 86920; 71046; 71275; 99285; 96374; P9016; J1940; Q9967

== ENCOUNTER → 2017-05-08 | Outpatient (CLI) | payer MEDICARE ==
[2017-05-08 16:48] LABS: Basophils # (A) 0.1 k/uL (0-0.2); Basophils % (A) 1 %; Eosinophils # (A) 0.2 k/uL (0-0.7); Eosinophils % (A) 4 %; HCT 30.2 % (34.0-46.0); Lymphocytes # (A) 2.1 k/uL (1.0-4.8); Lymphocytes % (A) 44 %; MCH 27.1 pg (25.0-35.0); MCHC 32.8 g/dL (31.0-37.0); MCV 82.6 fL (80.0-100.0); Mean Platelet Volume 7.6; Monocytes # (A) 0.5 k/uL (0-1.0); Monocytes % (A) 11 %; Neutrophils # (A) 1.7 k/uL (1.3-7.7); Neutrophils % (A) 37 %; Platelet Count 396 k/uL (150-450); RBC 3.66 m/uL (3.80-5.40); RDW 13.6 % (11.5-15.5); WBC 4.7 k/uL (3.8-10.6)
[2017-05-08 16:55] LABS: Anion Gap 9 mmol/L; Blood Urea Nitrogen 16 mg/dL (7-17); Calcium 9.5 mg/dL (8.4-10.2); Carbon Dioxide 26 mmol/L (22-30); Chloride 105 mmol/L (98-107); Glucose 95 mg/dL (74-99); Potassium 4.6 mmol/L (3.5-5.1); Sodium 140 mmol/L (137-145)
[2017-05-08 16:58] LABS: HGB 9.9 gm/dL (11.4-16.0)
== END | disposition home or self-care (01) ==
LOC: LABWHC1 16:19
PROVIDERS: ATTEND Internal Medicine Infectious Disease
DX: D64.9 Anemia, unspecified (principal)
CPT/HCPCS: 36415; 80048; 85025

== ENCOUNTER → 2017-05-30 | Outpatient (CLI) | payer MEDICARE, OTHER ==
--- NOTE | 2017-06-01 08:59 | MM ---
Reason for exam: screening (asymptomatic). Last mammogram was performed 4 years and 6 months ago. History: Patient is postmenopausal and had first child at age 33. Benign right mammotome panel of the right breast, December 20, 2004. Benign stereotactic core biopsy of the right breast, July 20, 2000. 2 benign excisional biopsies of the left breast. Took estrogen for 10 years beginning at age 49. Took progesterone for 10 years beginning at age 49. Physical Findings: A clinical breast exam by your physician is recommended on an annual basis and results should be correlated with mammographic findings. MG 3D Screening Mammo W/Cad Bilateral CC and MLO view(s) were taken. Prior study comparison: December 10, 2012, [facility] DIGITAL RIGHT MAMMOGRAM w/CAD. December 05, 2012, bilateral digital screening mammo w/CAD. December 01, 2011, bilateral digital screening mammo w/CAD. The breast tissue is extremely dense which could obscure a lesion on mammography. Finding: There are typically benign punctate, grouped/clustered calcifications in the left breast. Previous mammotome biopsy in the right and left breast. New finding since December 05, 2012 and December 01, 2011. ASSESSMENT: Incomplete: need additional imaging evaluation, BI-RAD 0 RECOMMENDATION: Special view mammogram of the left breast. [facility] will attempt to contact patient to return for supplemental views.
== END | disposition home or self-care (01) ==
LOC: RADMAMWWP 10:50
PROVIDERS: ATTEND Internal Medicine Infectious Disease
DX: Z12.31 Encounter for screening mammogram for malignant neoplasm of breast (principal)
CPT/HCPCS: 77063; 77067

== ENCOUNTER → 2017-07-14 | Day surgery (SDC) | payer MEDICARE ==
[2017-07-14 09:50] VITALS: TEMP 98; BMI 28.3
[2017-07-14 12:48] VITALS: BP 126/56; PULSE 68; RESP 18
--- NOTE | 2017-07-14 14:44 | MM ---
EXAMINATION TYPE: MG stereo VAD BX addl LT, MG stereo VAD BX LT DATE OF EXAM: 07/14/2017 COMPARISON: Exams dating back to 05/30/2017 CLINICAL HISTORY: Indeterminate calcifications on the left breast for which 2 site stereotactic biopsy was recommended. TECHNIQUE: Stereotactic guided core biopsy of left breast. FINDINGS: The procedure of stereotactic guided core biopsy was explained to the patient. Benefits, alternatives, and risks were discussed. An informed consent was then obtained. Preprocedural timeout was performed. Site A (group of calcifications within the upper outer quadrant at anterior depth): The shortness pathway for biopsy was chosen. Shortness pathway was lateral to medial approach. 10 cc of lidocaine buffered with bicarbonate without epinephrine was utilized to anesthetize the subcutaneous tissues and skin surface. Prefire images were obtained. 10 cc of lidocaine with epinephrine was utilized to anesthetize the tissues at the site of biopsy. A vacuum assisted biopsy gun was used to obtain 7 core samples. Site B (group of calcifications within the lower outer quadrant at middle depth) : The shortness pathway for biopsy was chosen. Shortness pathway was CC from below approach. 10 cc of lidocaine buffered with bicarbonate without epinephrine was utilized to anesthetize the subcutaneous tissues and skin surface. Prefire images were obtained. 10 cc of lidocaine with epinephrine was utilized to anesthetize the tissues at the site of biopsy. A vacuum assisted biopsy gun was used to obtain 6 core samples. The patient tolerated the procedure well without any immediate complication. The patient was kept in the radiology department for short stay after the procedure and then discharged home in stable condition. Targeted calcifications are identified in specimen mammogram. Post biopsy mammogram shows the clip to appear in satisfactory position relative to the targeted area of concern on the preprocedure images. IMPRESSION: SUCCESSFUL, UNCOMPLICATED TWO SITE STEREOTACTIC GUIDED CORE BIOPSY OF INDETERMINATE CALCIFICATIONS IN THE LEFT BREAST, FULL PATHOLOGY RESULTS TO FOLLOW. Pathology Results: Benign A. LEFT ANTERIOR BREAST SITE 1, BIOPSIES: BENIGN BREAST PARENCHYMA WITH STROMAL FIBROSIS AND DUCT CYSTIC CHANGES. DUCT ECTASIA. APOCRINE METAPLASIA AND COARSE INTRADUCTAL MINERALIZATIONS. B. LEFT POSTERIOR BREAST SITE 2, BIOPSIES: DUCTAL HYPERPLASIA OF THE USUAL TYPE ADJACENT TO MATERIAL CONSISTENT WITH PRIOR BIOPSY SITE ARTIFACT. COARSE INTRADUCTAL MINERALIZATIONS. Recommendation Follow up mammogram of the left breast in 6 months. ALECIA
== END | disposition home or self-care (01) ==
LOC: RADMAMWWP 08:48
PROVIDERS: ATTEND Internal Medicine Infectious Disease
DX: N60.32 Fibrosclerosis of left breast (principal); N60.82 Other benign mammary dysplasias of left breast; N60.92 Unspecified benign mammary dysplasia of left breast; N60.42 Mammary duct ectasia of left breast; Z88.2 Allergy status to sulfonamides; Z88.1 Allergy status to other antibiotic agents
CPT/HCPCS: 88305; 19081; 19082; A4648; J2001

== ENCOUNTER 2017-09-20 15:15 | Emergency (ER) | payer MEDICARE ==
[2017-09-20] MEDS ORDERED: DOCUSATE 100 MG CAP MISCELLANE STA (16:35)
[2017-09-20] MEDS ORDERED: DOCUSATE ORAL SOLN 100 MG/10 ML CUP PO STA (17:00)
--- NOTE | 2017-09-20 17:06 | ED ---
ENT HPI - General Chief complaint: ENT Stated complaint: trouble hearing/dizziness Time Seen by Provider: 09/20/17 16:20 Source: patient, family, RN notes reviewed Mode of arrival: ambulatory Limitations: no limitations - History of Present Illness Initial comments: This 82-year-old female with a history of diminished hearing who does use urinates who apparently is been dizzy on and off for the past several days but this morning developed acute hearing loss bilaterally. She denies any fevers chills nausea vomiting sweats trauma or other symptoms. No other modifying factors at this time MD complaint: other - Related Data Home Medications Medication Instructions Recorded Confirmed Allopurinol [Zyloprim] 100 mg PO HS 12/23/14 09/20/17 Pravastatin Sodium [Pravachol] 40 mg PO HS@2100 12/23/14 09/20/17 amLODIPine [Norvasc] 5 mg PO QAM 12/23/14 09/20/17 Calcium Carbonate [Calcium] 1,200 mg PO DAILY 12/30/14 09/20/17 Cholecalciferol [Vitamin D3] 1,000 unit PO DAILY 03/03/17 09/20/17 Ferrous Sulfate [Feosol] 650 mg PO DAILY 04/17/17 09/20/17 Aspirin [Adult Low Dose Aspirin EC] 81 mg PO DAILY 09/20/17 09/20/17 Cephalexin [Keflex] 500 mg PO Q6HR 09/20/17 09/20/17 Glucosam/John-Msm1/C/[place]incoln/Bosw 1 tab PO DAILY 09/20/17 09/20/17 [Glucosamine-Chondroitin Tablet] Juvenon 2 tab PO DAILY 09/20/17 09/20/17 Outing-3 Fatty Acids/Fish Oil [Fish 2 cap PO DAILY 09/20/17 09/20/17 Oil 1,000 mg Softgel] Q Veratrol 2 tab PO DAILY 09/20/17 09/20/17 Allergies Allergy/AdvReac Type Severity Reaction Status Date / Time cefazolin [From Kefzol] Allergy Severe Rash/Hives Verified 09/20/17 16:44 daptomycin Allergy Dyspnea Verified 09/20/17 16:44 sulfamethoxazole Allergy Dyspnea Verified 09/20/17 16:44 [From Bactrim] trimethoprim [From Bactrim] Allergy Dyspnea Verified 09/20/17 16:44 vancomycin Allergy Rash/Hives Verified 09/20/17 16:44 Review of Systems ROS Statement: Those systems with pertinent positive or pertinent negative responses have been documented in the HPI. ROS Other: All systems not noted in ROS Statement are negative. Past Medical History Past Medical History: Cancer, GERD/Reflux, Hyperlipidemia, Hypertension, Musculoskeletal Disorder, Osteoarthritis (OA) Additional Past Medical History / Comment(s): LT FOOT mrsa 2018- SEES DR FREED AT [facility] on fridays. neuropathy, raynaulds, gout, CHILD HAD HEART MURMUR, HIATAL HERNIA, VIT D DEFICIENCY, INCONT OF URINE, ORAL CANCER 2018 History of Any Multi-Drug Resistant Organisms: MRSA Date of last positivie culture/infection: 2018 MDRO Source:: left foot Past Surgical History: Adenoidectomy, Bladder Surgery, Heart Catheterization, Tonsillectomy, Tubal Ligation Additional Past Surgical History / Comment(s): 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 ), SINUS BX-NEG, COLONOSCOPY, MICHELLE BREAST BX-NEG, MICHELLE CATARACTS, PT WAS BORN WITH EXTRA THUMB ON RT HAND HAD IT SX REMOVED WHEN SHE WAS AN INFANT.BLADDER SUSPENSION, CARBAJAL NEUROMA REMOVED. oral surgery 06/19/17 for removal of cancer, teeth extraction and some bone removal Past Anesthesia/Blood Transfusion Reactions: Previous Problems w/ Anesthesia Additional Past Anesthesia/Blood Transfusion Reaction / Comment(s): Hard time coming out of anesthesia after oral cancer surgery 2 weeks ago Past Psychological History: No Psychological Hx Reported Smoking Status: Never smoker Past Alcohol Use History: None Reported Past Drug Use History: None Reported - Past Family History Son(s) Family Medical History: No Reported History Sister(s) Family Medical History: Diabetes Mellitus Brother(s) Family Medical History: No Reported History Mother Family Medical History: Cancer Additional Family Medical History / Comment(s): PANCREATIC CANCER Father Family Medical History: Congestive Heart Failure (CHF) Additional Family Medical History / Comment(s): POLIO Daughter(s) Family Medical History: Cancer Additional Family Medical History / Comment(s): BRAIN General Exam - General Exam Comments Initial Comments: This is a well-developed well-nourished awake alert oriented 3 female Limitations: no limitations General appearance: alert Head exam: Present: atraumatic, normocephalic, normal inspection Eye exam: Present: normal appearance, PERRL, EOMI. Absent: scleral icterus, conjunctival injection, periorbital swelling ENT exam: Present: other (Bilateral cerumen impaction is noted.) Cardiovascular Exam: Present: regular rate Extremities exam: Present: normal inspection, full ROM, normal capillary refill. Absent: tenderness, pedal edema, joint swelling, calf tenderness Back exam: Present: normal inspection Neurological exam: Present: alert, oriented X3. Absent: CN II-XII intact Psychiatric exam: Present: normal affect, normal mood Skin exam: Present: warm, dry, intact, normal color. Absent: rash Course Vital Signs 09/20/17 15:18 Temperature 98.1 F Pulse Rate 78 Respiratory 20 Rate Blood Pressure 149/68 O2 Sat by Pulse 96 Oximetry Procedures - Ear Wax Removal Both Ears Cerumenolytic Used: Colace Ear Canal Irrigated by: MD CONNOR Ear Canal Irrigated With: warm saline using syringe/angiocath, [place] Ear Canal(s) Curetted: plastic scoops Results: Re-examined: cerumen removed completely, removal reattempted TM Visible: TM(s) intact, normal appearance Patient Tolerated Procedure: well Complications: no problems Medical Decision Making - Medical Decision Making I was able to successfully remove the cerumen from both ear canals. Patient could hear much better after the procedure. Initially the cerumen was treated with Colace and water. Without results male remove it with a plastic speculum was successful. This was performed by me. Additionally patient states she no longer feels dizzy. Disposition Clinical Impression: Impacted cerumen of both ears Disposition: HOME SELF-CARE Condition: Good Instructions: Cerumen Impaction (ED) Is patient prescribed a controlled substance at d/c from ED?: No Referrals: Niall Richmond MD [Primary Care Provider] - 1-2 days
[2017-09-20 20:50] VITALS: BP 170/77; PULSE 66; RESP 18; TEMP 98
== END 2017-09-20 20:49 | disposition home or self-care (01) ==
LOC: EC 15:15
DX: H61.23 Impacted cerumen, bilateral (principal); E78.5 Hyperlipidemia, unspecified; I10 Essential (primary) hypertension; M19.90 Unspecified osteoarthritis, unspecified site; M10.9 Gout, unspecified; Z79.82 Long term (current) use of aspirin; Z79.899 Other long term (current) drug therapy; Z88.1 Allergy status to other antibiotic agents; Z86.14 Personal history of Methicillin resistant Staphylococcus aureus infection; Z85.819 Personal history of malignant neoplasm of unspecified site of lip, oral cavity, and pharynx; Z87.440 Personal history of urinary (tract) infections; Z98.890 Other specified postprocedural states
CPT/HCPCS: 69210; 99283

== ENCOUNTER → 2017-11-17 | Outpatient (CLI) | payer MEDICARE, OTHER ==
[2017-11-17 11:58] LABS: Basophils % (A) 1 %; Eosinophils # (A) 0.3 k/uL (0-0.7); Eosinophils % (A) 5 %; HCT 40.2 % (34.0-46.0); Lymphocytes # (A) 2.3 k/uL (1.0-4.8); Lymphocytes % (A) 41 %; MCH 28.2 pg (25.0-35.0); MCHC 32.4 g/dL (31.0-37.0); Mean Platelet Volume 6.9; Monocytes # (A) 0.3 k/uL (0-1.0); Monocytes % (A) 5 %; Neutrophils # (A) 2.6 k/uL (1.3-7.7); Neutrophils % (A) 46 %; Platelet Count 255 k/uL (150-450); RBC 4.62 m/uL (3.80-5.40); RDW 14.8 % (11.5-15.5); WBC 5.7 k/uL (3.8-10.6)
[2017-11-17 12:31] LABS: Anion Gap 9 mmol/L; Blood Urea Nitrogen 14 mg/dL (7-17); Calcium 9.6 mg/dL (8.4-10.2); Carbon Dioxide 29 mmol/L (22-30); Chloride 105 mmol/L (98-107); Cholesterol 183 mg/dL (<200); Glucose 87 mg/dL (74-99); HDL Cholesterol 50 mg/dL (40-60); LDL Cholesterol,Calculated 96 mg/dL (0-99); Potassium 4.6 mmol/L (3.5-5.1); Sodium 143 mmol/L (137-145); Triglycerides 186 mg/dL (<150); Uric Acid 4.3 mg/dL (3.7-7.4)
== END | disposition home or self-care (01) ==
LOC: LABWHC1 10:57
PROVIDERS: ATTEND Internal Medicine Infectious Disease
DX: E78.00 Pure hypercholesterolemia, unspecified (principal); I10 Essential (primary) hypertension; M10.9 Gout, unspecified
CPT/HCPCS: 36415; 80048; 80061; 84550; 85025

== ENCOUNTER 2017-12-01 14:51 | Inpatient (IN) | payer MEDICARE ==
--- NOTE | 2017-12-01 15:29 | ED ---
General Adult HPI - General Source: patient, RN notes reviewed Mode of arrival: ambulatory Limitations: no limitations <Wilton Garsia - Last Filed: 12/01/17 15:28> <Bertin Woodward - Last Filed: 12/01/17 18:35> - General Chief complaint: Skin/Abscess/Foreign Body Stated complaint: cellulitis Time Seen by Provider: 12/01/17 15:13 - History of Present Illness Initial comments: 82-year-old female presents emergency department for left foot infection. Patient states that she has been on Keflex states that she noticed slight redness hasn't worsened. Patient was seen by industrial cleaning technician today and was advised well emergency department for admission. She states that she sees Dr. Freed. Patient states that she's had MRSA of her foot in the past and states that she usually receives vancomycin. Patient states it is an ALLERGY but states only one given quickly. Patient denies any known fever or chills. She states that her foot is red, swollen and her lower leg is swollen. (Wilton Garsia) - Related Data Home Medications Medication Instructions Recorded Confirmed Allopurinol [Zyloprim] 100 mg PO HS 12/23/14 12/01/17 Pravastatin Sodium [Pravachol] 40 mg PO HS 12/23/14 12/01/17 amLODIPine [Norvasc] 5 mg PO HS 12/23/14 12/01/17 Calcium Carbonate [Calcium] 1,200 mg PO DAILY 12/30/14 12/01/17 Cholecalciferol [Vitamin D3] 1,000 unit PO DAILY 03/03/17 12/01/17 Ferrous Sulfate [Feosol] 650 mg PO DAILY 04/17/17 12/01/17 Aspirin [Adult Low Dose Aspirin EC] 81 mg PO DAILY 09/20/17 12/01/17 Glucosam/John-Msm1/C/[place]/Bosw 1 tab PO DAILY 09/20/17 12/01/17 [Glucosamine-Chondroitin Tablet] Juvenon 2 tab PO DAILY 09/20/17 12/01/17 [place]-3 Fatty Acids/Fish Oil [Fish 2 cap PO DAILY 09/20/17 12/01/17 Oil 1,000 mg Softgel] Q Veratrol 2 tab PO DAILY 09/20/17 12/01/17 Allergies Allergy/AdvReac Type Severity Reaction Status Date / Time cefazolin [From Kefzol] Allergy Severe Rash/Hives Verified 12/01/17 16:04 daptomycin Allergy Dyspnea Verified 12/01/17 16:04 sulfamethoxazole Allergy Dyspnea Verified 12/01/17 16:04 [From Bactrim] trimethoprim [From Bactrim] Allergy Dyspnea Verified 12/01/17 16:04 vancomycin Allergy Rash/Hives Verified 12/01/17 16:04 Review of Systems ROS Other: All systems not noted in ROS Statement are negative. <Wilton Garsia - Last Filed: 12/01/17 15:28> ROS Other: All systems not noted in ROS Statement are negative. <Bertin Woodward - Last Filed: 12/01/17 18:35> ROS Statement: Those systems with pertinent positive or pertinent negative responses have been documented in the HPI. Past Medical History Past Medical History: Cancer, GERD/Reflux, Hyperlipidemia, Hypertension, Musculoskeletal Disorder, Osteoarthritis (OA) Additional Past Medical History / Comment(s): LT FOOT mrsa 2018- SEES DR FREED AT [facility] on fridays. neuropathy, raynaulds, gout, CHILD HAD HEART MURMUR, HIATAL HERNIA, VIT D DEFICIENCY, INCONT OF URINE, ORAL CANCER 2018 History of Any Multi-Drug Resistant Organisms: MRSA Date of last positivie culture/infection: 2018 MDRO Source:: left foot Past Surgical History: Adenoidectomy, Bladder Surgery, Heart Catheterization, Tonsillectomy, Tubal Ligation Additional Past Surgical History / Comment(s): 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 ), SINUS BX-NEG, COLONOSCOPY, MICHELLE BREAST BX-NEG, MICHELLE CATARACTS, PT WAS BORN WITH EXTRA THUMB ON RT HAND HAD IT SX REMOVED WHEN SHE WAS AN .BLADDER SUSPENSION, CARBAJAL NEUROMA REMOVED. oral surgery 06/19/17 for removal of cancer, teeth extraction and some bone removal Past Anesthesia/Blood Transfusion Reactions: Previous Problems w/ Anesthesia Additional Past Anesthesia/Blood Transfusion Reaction / Comment(s): Hard time coming out of anesthesia after oral cancer surgery 2 weeks ago Past Psychological History: No Psychological Hx Reported Smoking Status: Never smoker Past Alcohol Use History: None Reported Past Drug Use History: None Reported - Past Family History Son(s) Family Medical History: No Reported History Sister(s) Family Medical History: Diabetes Mellitus Brother(s) Family Medical History: No Reported History Mother Family Medical History: Cancer Additional Family Medical History / Comment(s): PANCREATIC CANCER Father Family Medical History: Congestive Heart Failure (CHF) Additional Family Medical History / Comment(s): POLIO Daughter(s) Family Medical History: Cancer Additional Family Medical History / Comment(s): BRAIN <Wilton Garsia - Last Filed: 12/01/17 15:28> General Exam Limitations: no limitations General appearance: alert, in no apparent distress Head exam: Present: atraumatic, normocephalic, normal inspection Respiratory exam: Present: normal lung sounds bilaterally. Absent: respiratory distress, wheezes, rales, rhonchi, stridor Cardiovascular Exam: Present: regular rate, normal rhythm, normal heart sounds. Absent: systolic murmur, diastolic murmur, rubs, gallop, clicks Extremities exam: Present: other (Left lower extremity there is erythema noted the foot, left distal tib-fib region. There is moderate warmth with palpation, pedal pulses equal bilaterally there is chronic deformity an amputation of his second digit on the left foot there is old surgical scars noted there is no open lesions or sores at this time.) Skin exam: Present: warm, dry <Wilton Garsia - Last Filed: 12/01/17 15:28> Course <Wilton Garsia - Last Filed: 12/01/17 15:28> <Bertin Woodward - Last Filed: 12/01/17 18:35> Vital Signs 12/01/17 14:54 Temperature 98.2 F Pulse Rate 84 Respiratory 18 Rate Blood Pressure 162/85 O2 Sat by Pulse 100 Oximetry - Reevaluation(s) Reevaluation #1: 12/01/17 18:35 Medical records thoroughly reviewed, patient ALLERGIC to vancomycin although patient states she does has a reaction when he goes to fast (Bertin Woodward) Medical Decision Making <Wilton Garsia - Last Filed: 12/01/17 15:28> - Lab Data Result diagrams: 12/01/17 15:47 12/01/17 15:47 <Bertin Woodward - Last Filed: 12/01/17 18:35> - Medical Decision Making 82 female the ER for evaluation of possible osteomyelitis nonhealing left foot cellulitis ulcer and probable loss U myelitis. Patient will be admitted placed on antibiotics under consultation of infectious disease (Bertin Woodward) - Lab Data Lab Results 12/01/17 12/01/17 12/01/17 Range/Units 15:47 15:47 15:47 WBC 10.6 (3.8-10.6) k/uL RBC 4.63 (3.80-5.40) m/uL Hgb 13.1 (11.4-16.0) gm/dL Hct 40.0 (34.0-46.0) % MCV 86.3 (80.0-100.0) fL MCH 28.4 (25.0-35.0) pg MCHC 32.9 (31.0-37.0) g/dL RDW 14.0 (11.5-15.5) % Plt Count 282 (150-450) k/uL Neutrophils % 71 % Lymphocytes % 20 % Monocytes % 6 % Eosinophils % 2 % Basophils % 0 % Neutrophils # 7.5 (1.3-7.7) k/uL Lymphocytes # 2.1 (1.0-4.8) k/uL Monocytes # 0.6 (0-1.0) k/uL Eosinophils # 0.3 (0-0.7) k/uL Basophils # 0.0 (0-0.2) k/uL PT (9.0-12.0) sec INR (<1.2) APTT (22.0-30.0) sec Sodium 140 (137-145) mmol/L Potassium 4.5 (3.5-5.1) mmol/L Chloride 102 (98-107) mmol/L Carbon Dioxide 27 (22-30) mmol/L Anion Gap 11 mmol/L BUN 12 (7-17) mg/dL Creatinine 0.68 (0.52-1.04) mg/dL Est GFR (CKD-EPI)AfAm >90 (>60 ml/min/1.73 sqM) Est GFR (CKD-EPI)NonAf 81 (>60 ml/min/1.73 sqM) Glucose 102 H (74-99) mg/dL Plasma Lactic Acid Mervin 1.4 (0.7-2.0) mmol/L Calcium 10.4 H (8.4-10.2) mg/dL Total Bilirubin 0.4 (0.2-1.3) mg/dL AST 28 (14-36) U/L ALT 26 (9-52) U/L Alkaline Phosphatase 72 (38-126) U/L Total Protein 7.7 (6.3-8.2) g/dL Albumin 4.3 (3.5-5.0) g/dL 12/01/17 Range/Units 15:47 WBC (3.8-10.6) k/uL RBC (3.80-5.40) m/uL Hgb (11.4-16.0) gm/dL Hct (34.0-46.0) % MCV (80.0-100.0) fL MCH (25.0-35.0) pg MCHC (31.0-37.0) g/dL RDW (11.5-15.5) % Plt Count (150-450) k/uL Neutrophils % % Lymphocytes % % Monocytes % % Eosinophils % % Basophils % % Neutrophils # (1.3-7.7) k/uL Lymphocytes # (1.0-4.8) k/uL Monocytes # (0-1.0) k/uL Eosinophils # (0-0.7) k/uL Basophils # (0-0.2) k/uL PT 9.8 (9.0-12.0) sec INR 1.0 (<1.2) APTT 17.8 L (22.0-30.0) sec Sodium (137-145) mmol/L Potassium (3.5-5.1) mmol/L Chloride (98-107) mmol/L Carbon Dioxide (22-30) mmol/L Anion Gap mmol/L BUN (7-17) mg/dL Creatinine (0.52-1.04) mg/dL Est GFR (CKD-EPI)AfAm (>60 ml/min/1.73 sqM) Est GFR (CKD-EPI)NonAf (>60 ml/min/1.73 sqM) Glucose (74-99) mg/dL Plasma Lactic Acid Mervin (0.7-2.0) mmol/L Calcium (8.4-10.2) mg/dL Total Bilirubin (0.2-1.3) mg/dL AST (14-36) U/L ALT (9-52) U/L Alkaline Phosphatase (38-126) U/L Total Protein (6.3-8.2) g/dL Albumin (3.5-5.0) g/dL Disposition <Wilton Garsia - Last Filed: 12/01/17 15:28> Is patient prescribed a controlled substance at d/c from ED?: No <Bertin Woodward - Last Filed: 12/01/17 18:35> Clinical Impression: Infection of left foot, Cellulitis of left foot, Chronic refractory osteomyelitis of left foot, Failure of outpatient treatment Disposition: ADMITTED IP TO THIS HOSP Condition: Fair
[2017-12-01 16:06] LABS: Basophils % (A) 0 %; Eosinophils # (A) 0.3 k/uL (0-0.7); Eosinophils % (A) 2 %; HGB 13.1 gm/dL (11.4-16.0); Lymphocytes # (A) 2.1 k/uL (1.0-4.8); Lymphocytes % (A) 20 %; MCH 28.4 pg (25.0-35.0); MCHC 32.9 g/dL (31.0-37.0); MCV 86.3 fL (80.0-100.0); Mean Platelet Volume 6.8; Monocytes # (A) 0.6 k/uL (0-1.0); Monocytes % (A) 6 %; Neutrophils # (A) 7.5 k/uL (1.3-7.7); Neutrophils % (A) 71 %; Platelet Count 282 k/uL (150-450); RBC 4.63 m/uL (3.80-5.40); WBC 10.6 k/uL (3.8-10.6)
[2017-12-01 16:20] LABS: ALT 26 U/L (9-52); AST 28 U/L (14-36); Albumin 4.3 g/dL (3.5-5.0); Alkaline Phosphatase 72 U/L (38-126); Anion Gap 11 mmol/L; Blood Urea Nitrogen 12 mg/dL (7-17); Calcium 10.4 mg/dL (8.4-10.2); Carbon Dioxide 27 mmol/L (22-30); Chloride 102 mmol/L (98-107); Glucose 102 mg/dL (74-99); Potassium 4.5 mmol/L (3.5-5.1); Sodium 140 mmol/L (137-145); Total Bilirubin 0.4 mg/dL (0.2-1.3); Total Protein 7.7 g/dL (6.3-8.2)
[2017-12-01 16:23] LABS: Prothrombin Time 9.8 sec (9.0-12.0)
[2017-12-01 16:29] LABS: Partial Thromboplastin Time 17.8 sec (22.0-30.0)
[2017-12-01] MEDS ORDERED: AMPICILLIN-SULBACTAM 3 GM in SODIUM CHLORIDE 0.9% 100 ML IVPB STA (17:51)
[2017-12-01] MEDS ORDERED: VANCOMYCIN IV PER PHARMACY 1 EACH MISC MISCELLANE PRN (17:51)
[2017-12-01] MEDS ORDERED: SODIUM CHLORIDE 0.9% 1,000 ML IV ONE (17:51)
[2017-12-01] MEDS ORDERED: VANCOMYCIN 1,250 MG in SODIUM CHLORIDE 0.9% 250 ML IVPB STA (18:02)
[2017-12-02] MEDS: diphenhydrAMINE 50 MG/ML 1 ML VIAL IVP PRN ×2 (00:05→08:55)
[2017-12-02] MEDS: AMPICILLIN-SULBACTAM 3 GM in SODIUM CHLORIDE 0.9% 100 ML IVPB SCH ×4 (00:16→17:29)
[2017-12-02] MEDS: amLODIPine 5 MG TAB PO SCH ×2 (01:48→21:07)
[2017-12-02] MEDS: PRAVASTATIN SODIUM 40 MG TAB PO SCH ×2 (01:48→21:07)
[2017-12-02] MEDS: ALLOPURINOL 100 MG TAB PO SCH ×2 (01:48→21:07)
[2017-12-02] MEDS: ASPIRIN 81 MG PO SCH (08:54)
[2017-12-02] MEDS: ENOXAPARIN 40 MG/0.4 ML SYRINGE SQ SCH (08:55)
[2017-12-02] MEDS: CHOLECALCIFEROL 1,000 UNIT TAB PO SCH (08:55)
[2017-12-02] MEDS ORDERED: CALCIUM CARB-VIT D 500MG-200UN 1 EACH TAB PO SCH (09:00)
[2017-12-02] MEDS: VANCOMYCIN 1,250 MG in SODIUM CHLORIDE 0.9% 250 ML IVPB SCH (09:01)
--- NOTE | 2017-12-02 10:32 | XR ---
EXAMINATION TYPE: XR foot complete LT , 3 VIEWS DATE OF EXAM ORDERED: 12/02/2017 HISTORY: pain. COMPARISON: Previous study dated 03/03/2017. FINDINGS: Osteotomy screw and pin has been removed from the proximal phalanx of the left great toe. There is a continuing marked deformity of the great toe. There is been previous amputation of the sec ond digit. No fracture, dislocation or bony destructive lesion is seen. There is a deformity of the f ifth third metatarsal which may relate to previous trauma. There is a small, plantar calcaneal spur. IMPRESSION: 1. NO ACUTE OSSEOUS LESION. 2. POSTOPERATIVE CHANGE. 3. SMALL, PLANTAR CALCANEAL SPUR.
[2017-12-02] MEDS: ACETAMINOPHEN TAB 500 MG TAB PO PRN (14:42)
--- NOTE | 2017-12-02 15:37 | P.HPIM ---
History of Present Illness H&P Date: 12/02/17 Chief Complaint: left foot cellulitis failed outpatient treatment Kristina James is an 82-year-old female who presented to [facility] emergency room with left foot erythema and tenderness, patient has known history of recurrent cellulitis, she is followed as outpatient by Dr. Richmond infectious disease was also her primary care physician, she is also followed by Dr. Freed hand polisher, patient received oral antibiotic as outpatient but her condition continued to worsen she presented was admitted to medical floor and started on IV antibiotic Unasyn and vancomycin. Patient has multiple medication ALLERGIES including cefazolin daptomycin Bactrim trimethoprim vancomycin, she is able to take vancomycin IV slowly with Benadryl. X-ray was done on presentation and did not reveal evidence of osteomyelitis. She had previous known infection with MRSA, she had previous history of amputation of the left second toe. Past Medical History Past Medical History: Cancer, GERD/Reflux, Hyperlipidemia, Hypertension, Musculoskeletal Disorder, Osteoarthritis (OA) Additional Past Medical History / Comment(s): LT FOOT mrsa 2018- SEES DR FREED AT [facility] on fridays. neuropathy, raynaulds, gout, CHILD HAD HEART MURMUR, HIATAL HERNIA, VIT D DEFICIENCY, INCONT OF URINE, ORAL CANCER 2018 History of Any Multi-Drug Resistant Organisms: MRSA Date of last positivie culture/infection: 2018 MDRO Source:: left foot Past Surgical History: Adenoidectomy, Bladder Surgery, Heart Catheterization, Tonsillectomy, Tubal Ligation Additional Past Surgical History / Comment(s): 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 ), SINUS BX-NEG, COLONOSCOPY, MICHELLE BREAST BX-NEG, MICHELLE CATARACTS, PT WAS BORN WITH EXTRA THUMB ON RT HAND HAD IT SX REMOVED WHEN SHE WAS AN INFANT.BLADDER SUSPENSION, CARBAJAL NEUROMA REMOVED. oral surgery 06/19/17 for removal of cancer, teeth extraction and some bone removal Past Anesthesia/Blood Transfusion Reactions: Previous Problems w/ Anesthesia Additional Past Anesthesia/Blood Transfusion Reaction / Comment(s): Hard time coming out of anesthesia after oral cancer surgery Past Psychological History: No Psychological Hx Reported Smoking Status: Never smoker Past Alcohol Use History: None Reported Past Drug Use History: None Reported - Past Family History Son(s) Family Medical History: No Reported History Sister(s) Family Medical History: Diabetes Mellitus Brother(s) Family Medical History: No Reported History Mother Family Medical History: Cancer Additional Family Medical History / Comment(s): PANCREATIC CANCER Father Family Medical History: Congestive Heart Failure (CHF) Additional Family Medical History / Comment(s): POLIO Daughter(s) Family Medical History: Cancer Additional Family Medical History / Comment(s): BRAIN Medications and Allergies Home Medications Medication Instructions Recorded Confirmed Type Allopurinol [Zyloprim] 100 mg PO HS 12/23/14 12/01/17 History Pravastatin Sodium [Pravachol] 40 mg PO HS 12/23/14 12/01/17 History amLODIPine [Norvasc] 5 mg PO HS 12/23/14 12/01/17 History Calcium Carbonate [Calcium] 1,200 mg PO DAILY 12/30/14 12/01/17 History Cholecalciferol [Vitamin D3] 1,000 unit PO DAILY 03/03/17 12/01/17 History Ferrous Sulfate [Feosol] 650 mg PO DAILY 04/17/17 12/01/17 History Aspirin [Adult Low Dose Aspirin EC] 81 mg PO DAILY 09/20/17 12/01/17 History Glucosam/John-Msm1/C/[place]/Bosw 1 tab PO DAILY 09/20/17 12/01/17 History [Glucosamine-Chondroitin Tablet] Juvenon 2 tab PO DAILY 09/20/17 12/01/17 History [place]-3 Fatty Acids/Fish Oil [Fish 2 cap PO DAILY 09/20/17 12/01/17 History Oil 1,000 mg Softgel] Q Veratrol 2 tab PO DAILY 09/20/17 12/01/17 History Allergies Allergy/AdvReac Type Severity Reaction Status Date / Time cefazolin [From Kefzol] Allergy Severe Rash/Hives Verified 12/01/17 16:04 daptomycin Allergy Dyspnea Verified 12/01/17 16:04 sulfamethoxazole Allergy Dyspnea Verified 12/01/17 16:04 [From Bactrim] trimethoprim [From Bactrim] Allergy Dyspnea Verified 12/01/17 16:04 vancomycin Allergy Rash/Hives Verified 12/01/17 16:04 Physical Exam Vitals: Vital Signs Temp Pulse Resp BP Pulse Ox 12/02/17 14:36 100.7 F H 76 18 151/62 96 12/02/17 07:00 97.8 F 57 L 18 127/59 94 L 12/01/17 23:00 100.4 F H 72 18 151/60 96 12/01/17 20:00 99.5 F 50 L 18 177/76 96 Intake and Output 12/02/17 12/02/17 12/02/17 06:59 14:59 22:59 Intake Total 500 1260 Balance 500 1260 Intake: IV 510 Ampicillin-Sulbactam 3 gm 100 In Sodium Chloride 0.9% 100 ml @ 200 mls/hr IVPB ONCE STA Rx#:[id number] Sodium Chloride 0.9% 1, 160 000 ml @ 20 mls/hr IV . Q24H ONE Rx#:[id number] Vancomycin 1,250 mg In 250 Sodium Chloride 0.9% 250 ml @ 83.333 mls/hr IVPB ONCE STA Rx#:[id number] Oral 500 750 Other: # Voids 2 2 # Bowel Movements 0 In general patient is alert and oriented 3 in no apparent distress HEENT head normocephalic and atraumatic Neck is supple no JVD no goiter no lymphadenopathy Chest exam reveals a few scattered rhonchi no wheezing Cardiac exam reveals regular heart sounds S1 and S2 no gallops no murmurs Abdomen is soft nontender no organomegaly with normal bowel sounds Extremity exam reveals no edema no cyanosis or clubbing There is erythema in the left big toe and the base of the left Ann extending to the distal part of the left foot with tenderness to touch Results CBC & Chem 7: 12/01/17 15:47 12/01/17 15:47 Labs: Abnormal Lab Results - Last 24 Hours (Table) 12/01/17 12/01/17 Range/Units 15:47 15:47 APTT 17.8 L (22.0-30.0) sec Glucose 102 H (74-99) mg/dL Calcium 10.4 H (8.4-10.2) mg/dL Thrombosis Risk Factor Assmnt - Choose All That Apply Any of the Below Risk Factors Present?: Yes Each Factor Represents 1 point: Obesity (BMI >25) Other Risk Factors: Yes Each Risk Factor Represents 3 Points: Age 75 years or older Thrombosis Risk Factor Assessment Total Risk Factor Score: 4 Thrombosis Risk Factor Assessment Level: Moderate Risk Assessment and Plan Plan: #1 recurrent episodes of left foot cellulitis, this time patient is maintained on IV vancomycin and IV Unasyn blood culture done and are pending, infectious disease consult requested. #2 underlying history of of onychomycosis #3 previous history of MRSA infections #4 underlying history of hypertension #5 underlying history of hyperlipidemia #6 underlying history of gout maintained on a purine no #7 previous history of oral cancer At this time continue with current antibiotic awaiting infectious disease input will follow closely
--- NOTE | 2017-12-02 23:35 | P.CONS ---
History of Present Illness - Reason for Consult Consult date: 12/02/17 - Chief Complaint Swelling and erythema to the left foot - History of Present Illness 82-year-old female with a long-standing history of wounds to her feet with prior surgical interventions is follow with her manager hair. Apparently she developed some increasing erythema with swelling and ascending erythema to the right lower extremity. Because of the rapid change she was directed for admission partly because she was having fever and had been on oral antibiotic therapy without improvement. With concerns for cellulitis to the lower extremity the infectious diseases consultation was requested. The patient has a dense neuropathy and dyspnea much pain. Over the foot is more swollen than usual which she also found to be very disconcerting. Her daughter is her caregiver and assured that she presented to Hospital. Review of Systems HEENT:Denies headache or acute visual change. Denies sinus or mouth discomforts. Denies neck stiffness or pain. Denies significant oral cavity pain. Denies difficulty on swallowing. Lungs: Denies significant shortness of breath, cough, sputum production, or hemoptysis. Cardiovascular: Denies significant shortness of breath, chest pain, chest wall pain, orthopnea, dyspnea on exertion, syncope Gastrointestinal:Denies nausea, vomiting, diarrhea, constipation, hematemesis, melena, hematochezia. No no significant change of bowel habit noticed. Musculoskeletal: denies significant myalgias or arthralgias. No new joint swelling. Denies new back pain. Skin: As noted in the HPI swelling erythema to the right foot and leg Neuro: Denies headache or visual change. Denies any new onset weakness or difficulty with ambulation. Denies falls or seizures. Psychiatric:Denies anxiety or depression. Endocrine: Denies significant fatigue, denies significant weight loss or weight gain. Past Medical History Past Medical History: Cancer, GERD/Reflux, Hyperlipidemia, Hypertension, Musculoskeletal Disorder, Osteoarthritis (OA) Additional Past Medical History / Comment(s): LT FOOT mrsa 2018- SEES DR FREED AT [facility] on fridays. 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 oral surgery 06/19/17 for removal of cancer, teeth extraction and some bone removal Past Anesthesia/Blood Transfusion Reactions: Previous Problems w/ Anesthesia Additional Past Anesthesia/Blood Transfusion Reaction / Comm: Hard time coming out of anesthesia after oral cancer surgery Past Psychological History: No Psychological Hx Reported Smoking Status: Never smoker Past Alcohol Use History: None Reported Past Drug Use History: None Reported - Past Family History Son(s) Family Medical History: No Reported History Sister(s) Family Medical History: Diabetes Mellitus Brother(s) Family Medical History: No Reported History Mother Family Medical History: Cancer Additional Family Medical History / Comment(s): PANCREATIC CANCER Father Family Medical History: Congestive Heart Failure (CHF) Additional Family Medical History / Comment(s): POLIO Daughter(s) Family Medical History: Cancer Additional Family Medical History / Comment(s): BRAIN Medications and Allergies Home Medications and Allergies Comment(s): Current Medications Acetaminophen (Tylenol Tab) 500 mg PO Q6HR PRN PRN Reason: Fever and/ or Pain Last Admin: 12/02/17 14:42 Dose: 500 mg Allopurinol (Zyloprim) 100 mg PO HS [facility] Last Admin: 12/02/17 21:07 Dose: 100 mg Amlodipine Besylate (Norvasc) 5 mg PO HS [facility] Last Admin: 12/02/17 21:07 Dose: 5 mg Aspirin (Aspirin) 81 mg PO DAILY [facility] Last Admin: 12/02/17 08:54 Dose: 81 mg Calcium Carbonate (Oscal 500+D) 2 each PO DAILY [facility] Cholecalciferol (Vitamin D3) 1,000 unit PO DAILY [facility] Last Admin: 12/02/17 08:55 Dose: 1,000 unit Diphenhydramine HCl (Benadryl) 25 mg IVP Q6HR PRN PRN Reason: Allergy Symptoms Last Admin: 12/02/17 08:55 Dose: 25 mg Enoxaparin Sodium (Lovenox) 40 mg SQ DAILY [facility] Last Admin: 12/02/17 08:55 Dose: 40 mg Ampicillin Sodium/Sulbactam (Sodium 3 gm/ Sodium Chloride) 100 mls @ 200 mls/ hr IVPB Q6HR [facility] Last Admin: 12/02/17 17:29 Dose: 200 mls/hr Vancomycin HCl 1,250 mg/ (Sodium Chloride) 250 mls @ 83.333 mls/hr IVPB Q16H [facility] Last Admin: 12/02/17 09:01 Dose: 83.333 mls/hr Pravastatin Sodium (Pravachol) 40 mg PO HS [facility] Last Admin: 12/02/17 21:07 Dose: 40 mg Home Medications Medication Instructions Recorded Confirmed Type Allopurinol [Zyloprim] 100 mg PO 12/23/14 12/01/17 History Pravastatin Sodium [Pravachol] 40 mg PO HS 12/23/14 12/01/17 History amLODIPine [Norvasc] 5 mg PO HS 12/23/14 12/01/17 History Calcium Carbonate [Calcium] 1,200 mg PO DAILY 12/30/14 12/01/17 History Cholecalciferol [Vitamin D3] 1,000 unit PO DAILY 03/03/17 12/01/17 History Ferrous Sulfate [Feosol] 650 mg PO DAILY 04/17/17 12/01/17 History Aspirin [Adult Low Dose Aspirin EC] 81 mg PO DAILY 09/20/17 12/01/17 History Glucosam/John-Msm1/C/[place]/Bosw 1 tab PO DAILY 09/20/17 12/01/17 History [Glucosamine-Chondroitin Tablet] Juvenon 2 tab PO DAILY 09/20/17 12/01/17 History [place]-3 Fatty Acids/Fish Oil [Fish 2 cap PO DAILY 09/20/17 12/01/17 History Oil 1,000 mg Softgel] Q Veratrol 2 tab PO DAILY 09/20/17 12/01/17 History Allergies Allergy/AdvReac Type Severity Reaction Status Date / Time cefazolin [From Kefzol] Allergy Severe Rash/Hives Verified 12/01/17 16:04 daptomycin Allergy Dyspnea Verified 12/01/17 16:04 sulfamethoxazole Allergy Dyspnea Verified 12/01/17 16:04 [From Bactrim] trimethoprim [From Bactrim] Allergy Dyspnea Verified 12/01/17 16:04 vancomycin Allergy Rash/Hives Verified 12/01/17 16:04 Physical Exam Vitals: Vital Signs Temp Pulse Resp BP Pulse Ox 12/02/17 14:36 100.7 F H 76 18 151/62 96 12/02/17 07:00 97.8 F 57 L 18 127/59 94 L Intake and Output 12/02/17 12/02/17 12/03/17 14:59 22:59 06:59 Intake Total 1260 Balance 1260 Intake: IV 510 Ampicillin-Sulbactam 3 gm 100 In Sodium Chloride 0.9% 100 ml @ 200 mls/hr IVPB ONCE STA Rx#:[id number] Sodium Chloride 0.9% 1, 160 000 ml @ 20 mls/hr IV . Q24H ONE Rx#:[id number] Vancomycin 1,250 mg In 250 Sodium Chloride 0.9% 250 ml @ 83.333 mls/hr IVPB ONCE STA Rx#:[id number] Oral 750 Other: # Voids 2 0 # Bowel Movements 0 Pleasant 82-year-old female who has difficulty with hearing but is otherwise comfortable at this time HEENT: Anicteric conjunctiva are pink and moist nasal mucosa grossly intact without significant lesions, there is no thrush. Neck: The neck is supple without significant lymphadenopathy or thyromegaly. Lungs: Good bilateral air entry without significant crackles or wheezing. There is no significant bronchial sounds. There is no egophony or dullness. Heart: Regular rate and rhythm with an audible S1-S2, no S3 no S4. There is no significant murmur click or rub, PMI was nondisplaced. Abdomen: Positive bowel sounds soft and nontender without palpable masses or organomegaly. There was no guarding or rebound. Extremities: The upper extremities have excellent pulses they are symmetric, no significant petechiae or telangiectasia. No splinter hemorrhages were noted. Lower extremities have evidence of some chronic lower extremity edema. She has significant chronic changes to the bilateral lower extremities. She is evidence of the prior toe amputation. The left foot at this time shows evidence of the swelling, erythema especially of the great toe. With her neuropathy is not tender. The erythema since to the mid tibial area. There is no open ulcerations or expressible purulence. She has chronic onychomycoses. Neuro: Awake alert oriented to person place and time. 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 but no other acute gross focal sensory motor deficits at this time Results CBC & Chem 7: 12/01/17 15:47 12/01/17 15:47 Labs: Microbiology - Last 24 Hours (Table) 12/01/17 15: Blood Culture - Preliminary Blood No Growth after 24 hours Laboratory Results WBC 10.6 k/uL (3.8-10.6) 12/01/17 15:47 RBC 4.63 m/uL (3.80-5.40) 12/01/17 15:47 Hgb 13.1 gm/dL (11.4-16.0) 12/01/17 15:47 Hct 40.0 % (34.0-46.0) 12/01/17 15: MCV 86.3 fL (80.0-100.0) 12/01/17 15: MCH 28.4 pg (25.0-35.0) 12/01/17 15: MCHC 32.9 g/dL (31.0-37.0) 12/01/17 15: RDW 14.0 % (11.5-15.5) 12/01/17 15:47 Plt Count 282 k/uL (150-450) 12/01/17 15:47 Neutrophils % 71 % 12/01/17 15: Lymphocytes % 20 % 12/01/17 15: Monocytes % 6 % 12/01/17 15:47 Eosinophils % 2 % 12/01/17 15: Basophils % 0 % 12/01/17 15:47 Neutrophils # 7.5 k/uL (1.3-7.7) 12/01/17 15:47 Lymphocytes # 2.1 k/uL (1.0-4.8) 12/01/17 15:47 Monocytes # 0.6 k/uL (0-1.0) 12/01/17 15: Eosinophils # 0.3 k/uL (0-0.7) 12/01/17 15:47 Basophils # 0.0 k/uL (0-0.2) 12/01/17 15:47 PT 9.8 sec (9.0-12.0) 12/01/17 15:47 INR 1.0 (<1.2) 12/01/17 15:47 APTT 17.8 sec (22.0-30.0) L 12/01/17 15:47 Sodium 140 mmol/L (137-145) 12/01/17 15:47 Potassium 4.5 mmol/L (3.5-5.1) 12/01/17 15:47 Chloride 102 mmol/L (98-107) 12/01/17 15:47 Carbon Dioxide 27 mmol/L (22-30) 12/01/17 15:47 Anion Gap 11 mmol/L 12/01/17 15:47 BUN 12 mg/dL (7-17) 12/01/17 15:47 Creatinine 0.68 mg/dL (0.52-1.04) 12/01/17 15:47 Est GFR (CKD-EPI)AfAm >90 (>60 ml/min/1.73 sqM) 12/01/17 15:47 Est GFR (CKD-EPI)NonAf 81 (>60 ml/min/1.73 sqM) 12/01/17 15:47 Glucose 102 mg/dL (74-99) H 12/01/17 15:47 Plasma Lactic Acid Mervin 1.4 mmol/L (0.7-2.0) 12/01/17 15:47 Calcium 10.4 mg/dL (8.4-10.2) H 12/01/17 15:47 Total Bilirubin 0.4 mg/dL (0.2-1.3) 12/01/17 15:47 AST 28 U/L (14-36) 12/01/17 15:47 ALT 26 U/L (9-52) 12/01/17 15:47 Alkaline Phosphatase 72 U/L (38-126) 12/01/17 15:47 Total Protein 7.7 g/dL (6.3-8.2) 12/01/17 15:47 Albumin 4.3 g/dL (3.5-5.0) 12/01/17 15:47 Microbiology 12/01/17 15:47 Blood Blood Culture - Preliminary No Growth after 24 hours Assessment and Plan (1) Cellulitis of left foot Narrative/Plan: 82-year-old female presents to Hospital after evaluation by her manager hair because of increasing erythema and swelling to the left foot at the great toe with ascending cellulitis. She is initiated to antibiotic therapy with Unasyn and vancomycin for treatment of the cellulitis and ascending lymphangitis. She fortunately is not having much pain but she does have significant neuropathy. Her fever is trending toward improvement. She does have leukocytosis it's also improving. Cultures are currently in process. X- ray was performed that shows evidence of a new acute fracture or bony involvement such as osteomyelitis. The limb shall be elevated and if possible wrap with a Silvadene dressing to see if this cannot further rapidly help this problem. Patient is instructed on the importance of elevation to help with the swelling and erythema and resolution of the problem. Current Visit: Yes Status: Acute Code(s): L03.116 - CELLULITIS OF LEFT LOWER LIMB SNOMED Code(s): 796930526 (2) Leukocytosis Current Visit: No Status: Acute Code(s): D72.829 - ELEVATED WHITE BLOOD CELL COUNT, UNSPECIFIED SNOMED Code(s): 027160826
[2017-12-03] MEDS: AMPICILLIN-SULBACTAM 3 GM in SODIUM CHLORIDE 0.9% 100 ML IVPB SCH ×4 (01:03→16:54)
[2017-12-03] MEDS: ACETAMINOPHEN TAB 500 MG TAB PO PRN (02:21)
[2017-12-03] MEDS: diphenhydrAMINE 50 MG/ML 1 ML VIAL IVP PRN ×2 (03:25→17:26)
[2017-12-03] MEDS: VANCOMYCIN 1,250 MG in SODIUM CHLORIDE 0.9% 250 ML IVPB SCH ×2 (03:30→17:56)
--- NOTE | 2017-12-03 09:22 | P.PN ---
Subjective Progress Note Date: 12/03/17 Kristina James is an 82-year-old female who presented to [facility] emergency room with left foot erythema and tenderness, patient has known history of recurrent cellulitis, she is followed as outpatient by Dr. Richmond infectious disease was also her primary care physician, she is also followed by Dr. 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 Patient has multiple medication ALLERGIES including cefazolin daptomycin Bactrim trimethoprim vancomycin, she is able to take vancomycin IV slowly with Benadryl. X-ray was done on presentation and did not reveal evidence of osteomyelitis. She had previous known infection with MRSA, she had previous history of amputation of the left second toe. On 12/03/2017 patient is alert and oriented 3 in no apparent distress, left foot is wrapped was gauze wrap an Mario wrap patient reports no pain in the left foot she denies any other complaints there is no headache or dizziness no chest pain no shortness of breath no cough no nausea or vomiting no abdominal pain no diarrhea and no urinary symptoms has low-grade fever that is improving Objective - Vital Signs Vital signs: Vital Signs Temp 98.7 F 12/03/17 07:00 Pulse 68 12/03/17 07:00 Resp 20 12/03/17 07:00 BP 120/60 12/03/17 07:00 Pulse Ox 96 12/03/17 07:00 Intake & Output 12/02/17 12/03/17 12/03/17 18:59 06:59 18:59 Intake Total 1260 600 Balance 1260 600 Intake: IV 510 Ampicillin-Sulbactam 3 gm 100 In Sodium Chloride 0.9% 100 ml @ 200 mls/hr IVPB ONCE STA Rx#:[id number] Sodium Chloride 0.9% 1, 160 000 ml @ 20 mls/hr IV . Q24H ONE Rx#:[id number] Vancomycin 1,250 mg In 250 Sodium Chloride 0.9% 250 ml @ 83.333 mls/hr IVPB ONCE STA Rx#:[id number] Oral 750 600 Other: # Voids 2 1 # Bowel Movements 0 - Exam In general patient is alert and oriented 3 in no apparent distress HEENT head normocephalic and atraumatic Neck is supple no JVD no goiter no lymphadenopathy Chest exam reveals a few scattered rhonchi no wheezing Cardiac exam reveals regular heart sounds S1 and S2 no gallops no murmurs Abdomen is soft nontender no organomegaly with normal bowel sounds Extremity exam reveals no edema no cyanosis or clubbing There is erythema in the left big toe and the base of the left big toe extending to the distal part of the left foot with tenderness to touch - Labs CBC & Chem 7: 12/01/17 15:47 12/01/17 15:47 Labs: Microbiology - Last 24 Hours (Table) 12/01/17 15:47 Blood Culture - Preliminary Blood No Growth after 24 hours Assessment and Plan Plan: #1 recurrent episodes of left foot cellulitis, with failed outpatient treatment , at this time patient is maintained on IV vancomycin and IV Unasyn blood culture done and are pending, infectious disease consult requested. #2 underlying history of of onychomycosis #3 previous history of MRSA infections #4 underlying history of hypertension #5 underlying history of hyperlipidemia #6 underlying history of gout maintained on a purine no #7 previous history of oral cancer At this time continue with current antibiotic awaiting infectious disease input will follow closely
[2017-12-03 09:28] LABS: Basophils % (A) 1 %; Eosinophils # (A) 0.3 k/uL (0-0.7); Eosinophils % (A) 9 %; HCT 35.7 % (34.0-46.0); Lymphocytes # (A) 1.1 k/uL (1.0-4.8); Lymphocytes % (A) 36 %; MCH 28.8 pg (25.0-35.0); MCHC 33.8 g/dL (31.0-37.0); MCV 85.5 fL (80.0-100.0); Mean Platelet Volume 6.6; Monocytes # (A) 0.3 k/uL (0-1.0); Monocytes % (A) 8 %; Neutrophils # (A) 1.4 k/uL (1.3-7.7); Neutrophils % (A) 44 %; Platelet Count 243 k/uL (150-450); RBC 4.18 m/uL (3.80-5.40); RDW 13.7 % (11.5-15.5); WBC 3.2 k/uL (3.8-10.6)
[2017-12-03] MEDS: CHOLECALCIFEROL 1,000 UNIT TAB PO SCH (09:28)
[2017-12-03] MEDS: CALCIUM CARB-VIT D 500MG-200UN 1 EACH TAB PO SCH (09:28)
[2017-12-03] MEDS: ASPIRIN 81 MG PO SCH (09:29)
[2017-12-03] MEDS: ENOXAPARIN 40 MG/0.4 ML SYRINGE SQ SCH (09:29)
[2017-12-03 09:45] LABS: ALT 19 U/L (9-52); AST 19 U/L (14-36); Albumin 3.6 g/dL (3.5-5.0); Alkaline Phosphatase 53 U/L (38-126); Anion Gap 9 mmol/L; Blood Urea Nitrogen 14 mg/dL (7-17); Calcium 9.2 mg/dL (8.4-10.2); Carbon Dioxide 30 mmol/L (22-30); Chloride 104 mmol/L (98-107); Glucose 100 mg/dL (74-99); Sodium 143 mmol/L (137-145); Total Bilirubin 0.4 mg/dL (0.2-1.3); Total Protein 6.4 g/dL (6.3-8.2); Uric Acid 4.6 mg/dL (3.7-7.4)
[2017-12-03 09:50] LABS: Potassium 4.2 mmol/L (3.5-5.1)
[2017-12-03] MEDS: PRAVASTATIN SODIUM 40 MG TAB PO SCH (20:27)
[2017-12-03] MEDS: ALLOPURINOL 100 MG TAB PO SCH (20:27)
[2017-12-03] MEDS: amLODIPine 5 MG TAB PO SCH (20:27)
[2017-12-04] MEDS: AMPICILLIN-SULBACTAM 3 GM in SODIUM CHLORIDE 0.9% 100 ML IVPB SCH ×4 (01:15→17:34)
[2017-12-04] MEDS: ASPIRIN 81 MG PO SCH (07:58)
[2017-12-04] MEDS: CALCIUM CARB-VIT D 500MG-200UN 1 EACH TAB PO SCH (07:58)
[2017-12-04] MEDS: CHOLECALCIFEROL 1,000 UNIT TAB PO SCH (07:58)
[2017-12-04] MEDS: ENOXAPARIN 40 MG/0.4 ML SYRINGE SQ SCH (07:58)
--- NOTE | 2017-12-04 10:29 | P.PN ---
Subjective Progress Note Date: 12/04/17 Kristina James is an 82-year-old female who presented to [facility] emergency room with left foot erythema and tenderness, patient has known history of recurrent cellulitis, she is followed as outpatient by Dr. 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 Patient has multiple medication ALLERGIES including cefazolin daptomycin Bactrim trimethoprim vancomycin, she is able to take vancomycin IV slowly with Benadryl. X-ray was done on presentation and did not reveal evidence of osteomyelitis. She had previous known infection with MRSA, she had previous history of amputation of the left second toe. On 12/03/2017 patient is alert and oriented 3 in no apparent distress, left foot is wrapped was gauze wrap an Mario wrap patient reports no pain in the left foot she denies any other complaints there is no headache or dizziness no chest pain no shortness of breath no cough no nausea or vomiting no abdominal pain no diarrhea and no urinary symptoms has low-grade fever that is improving On 12/04/2017 patient is alert and oriented 3. Patient is currently resting comfortably wrap patient denies any pain to left foot. Patient denies chest pain or shortness of breath. Patient denies vomiting or diarrhea. Patient denies any urinary burning or frequency. Patient has remained afebrile Objective - Vital Signs Vital signs: Vital Signs Temp 96.4 F L 12/04/17 06:12 Pulse 59 L 12/04/17 06:12 Resp 16 12/04/17 06:12 BP 127/59 12/04/17 06:12 Pulse Ox 97 12/04/17 06:12 Intake & Output 12/03/17 12/04/17 12/04/17 18:59 06:59 18:59 Intake Total 800 Balance 800 Intake: Oral 800 Other: # Voids 2 3 # Bowel Movements 0 - Exam In general patient is alert and oriented 3 in no apparent distress HEENT head normocephalic and atraumatic Neck is supple no JVD no goiter no lymphadenopathy Chest exam reveals a few scattered rhonchi no wheezing Cardiac exam reveals regular heart sounds S1 and S2 no gallops no murmurs Abdomen is soft nontender no organomegaly with normal bowel sounds Extremity exam reveals no edema no cyanosis or clubbing There is erythema in the left big toe and the base of the left big toe extending to the distal part of the left foot with tenderness to touch - Labs CBC & Chem 7: 12/03/17 08:52 12/03/17 08:52 Labs: Microbiology - Last 24 Hours (Table) 12/01/17 15:47 Blood Culture - Preliminary Blood No Growth after 48 hours Assessment and Plan Assessment: #1 recurrent episodes of left foot cellulitis, with failed outpatient treatment , at this time patient is maintained on IV vancomycin and IV Unasyn blood culture done and are pending, infectious disease consult requested. blood cultures remains negative. per infectious disease patient remains on Unasyn and vancomycin. Patient to keep Silvadene dressing and Mario wrap in place. #2 underlying history of of onychomycosis #3 previous history of MRSA infections #4 underlying history of hypertension #5 underlying history of hyperlipidemia #6 underlying history of gout maintained on allopurinol #7 previous history of oral cancer DVT prophylaxis Lovenox. GI prophylaxis Pepcid per patient if she requires IV antibiotics will most likely require discharge to [facility]. Awaiting infectious disease final decision on antibiotics I performed an examination of the patient and discussed their management with the Nurse Practitioner. I have reviewed the Nurse Practitioner's notes and agree with the documented findings and plan of care
[2017-12-04 11:00] LABS: Basophils % (A) 1 %; Eosinophils # (A) 0.3 k/uL (0-0.7); Eosinophils % (A) 9 %; HCT 33.9 % (34.0-46.0); HGB 11.5 gm/dL (11.4-16.0); Lymphocytes # (A) 1.2 k/uL (1.0-4.8); Lymphocytes % (A) 37 %; MCH 28.8 pg (25.0-35.0); MCHC 34.1 g/dL (31.0-37.0); MCV 84.5 fL (80.0-100.0); Mean Platelet Volume 6.6; Monocytes # (A) 0.3 k/uL (0-1.0); Monocytes % (A) 9 %; Neutrophils # (A) 1.3 k/uL (1.3-7.7); Neutrophils % (A) 41 %; Platelet Count 262 k/uL (150-450); RBC 4.01 m/uL (3.80-5.40); RDW 13.6 % (11.5-15.5); WBC 3.2 k/uL (3.8-10.6)
[2017-12-04] MEDS: VANCOMYCIN 1,250 MG in SODIUM CHLORIDE 0.9% 250 ML IVPB SCH (11:14)
[2017-12-04 11:24] LABS: ALT 17 U/L (9-52); AST 19 U/L (14-36); Albumin 3.4 g/dL (3.5-5.0); Alkaline Phosphatase 51 U/L (38-126); Anion Gap 8 mmol/L; Blood Urea Nitrogen 13 mg/dL (7-17); Calcium 9.4 mg/dL (8.4-10.2); Carbon Dioxide 30 mmol/L (22-30); Chloride 103 mmol/L (98-107); Glucose 90 mg/dL (74-99); Potassium 4.5 mmol/L (3.5-5.1); Sodium 141 mmol/L (137-145); Total Bilirubin 0.2 mg/dL (0.2-1.3); Total Protein 6.2 g/dL (6.3-8.2)
[2017-12-04] MEDS: diphenhydrAMINE 50 MG/ML 1 ML VIAL IVP PRN (11:25)
[2017-12-04] MEDS: PRAVASTATIN SODIUM 40 MG TAB PO SCH (20:10)
[2017-12-04] MEDS: ALLOPURINOL 100 MG TAB PO SCH (20:10)
[2017-12-04] MEDS: amLODIPine 5 MG TAB PO SCH (20:10)
--- NOTE | 2017-12-04 23:32 | PN ---
PROGRESS NOTE DATE OF SERVICE: 12/04/2017 REASON FOR FOLLOWUP: Left foot cellulitis. HISTORY OF PRESENT ILLNESS: The patient is an 82-year-old female who seems to have a recurrent infection of her left foot. Patient did deformity and the history is significant for an episode of osteomyelitis in the beginning of this year. The patient was admitted to [facility] from Dr. Becker's office on 12/02/2017 for increasing swelling and redness of her left foot area. Apparently her symptoms had been going on for about 2 days before she was admitted to hospital. The patient did have underlying neuropathy; hence she denies significant pain. The patient did have significant swelling and redness of the foot area which was warm to touch. There was no open wound or any drainage. She did have x-rays of the foot which did not show any acute osseous lesion. The patient on arrival at the hospital was afebrile; subsequently she did have fever of 100.4 to 100.7. That has resolved. The patient's white count has been normal or slightly leukopenic. She has been treated with Unasyn and vancomycin. However, the vancomycin trough has been low as of this morning. She did have blood culture that has been negative so far. The patient today is afebrile. She is breathing comfortably. The left foot swelling and redness has decreased, currently with no open wound or any drainage. Denies having any chest pain, shortness of breath or cough. No abdominal pain or any diarrhea. REVIEW OF SYSTEMS: Positive points have been mentioned in HPI. Rest of the system review has been negative. Past medical and surgical history reviewed. Cultures and medications were reviewed. PHYSICAL EXAMINATION: Blood pressure is 134/76 with a pulse of 64, temperature of 98.5. She is 99% on room air. General description is an elderly female up in the bed in no distress. HEENT EXAMINATION: No pallor or scleral icterus. Oral mucosa membrane is dry. NECK: Trachea is central. No thyromegaly. LUNGS: Unlabored breathing. Clear to auscultation anteriorly. HEART: S1, S2. Regular rate and rhythm. ABDOMEN: Soft. No tenderness. Left foot is currently minimally swollen, slightly red. Minimally warm to touch. No fluctuation, induration or was noted. Neurologically the patient is awake, alert, oriented x3. Mood and affect normal. LABS: Hemoglobin is 11.5, white count 3.2 with a BUN of 13, creatinine 0.71. Vancomycin trough is 10.8. Blood culture has been negative. DIAGNOSTIC IMPRESSION AND PLAN: Patient with acute left foot cellulitis, more likely from a gram-positive skin varun such as strep and staph. Less likely MRSA, as the patient has shown clinical improvement, even though the vancomycin trough has been on the low side. At this point, I recommend keeping the patient on IV vancomycin, Pharmacy to dose, while watching her kidney function closely, in addition to the Unasyn, as the patient continues to improve. Hopefully she can finish therapy with oral Augmentin. Continue with supportive care. MMODL / IJN: [id number] /
[2017-12-05] MEDS ORDERED: VANCOMYCIN 1,250 MG in SODIUM CHLORIDE 0.9% 250 ML IVPB SCH ×2
[2017-12-05] MEDS: AMPICILLIN-SULBACTAM 3 GM in SODIUM CHLORIDE 0.9% 100 ML IVPB SCH ×3 (00:21→11:18)
[2017-12-05 00:47] VITALS: TEMP 97
[2017-12-05 05:51] VITALS: BP 137/58; PULSE 55; RESP 18
[2017-12-05] MEDS: CHOLECALCIFEROL 1,000 UNIT TAB PO SCH (07:17)
[2017-12-05] MEDS: ASPIRIN 81 MG PO SCH (07:17)
[2017-12-05] MEDS: CALCIUM CARB-VIT D 500MG-200UN 1 EACH TAB PO SCH (07:17)
[2017-12-05] MEDS: ENOXAPARIN 40 MG/0.4 ML SYRINGE SQ SCH (07:17)
[2017-12-05] MEDS ORDERED: FAMOTIDINE 20 MG TAB PO SCH (09:00)
[2017-12-05 09:52] LABS: Anion Gap 10 mmol/L; Blood Urea Nitrogen 13 mg/dL (7-17); Calcium 9.1 mg/dL (8.4-10.2); Carbon Dioxide 27 mmol/L (22-30); Chloride 104 mmol/L (98-107); Glucose 92 mg/dL (74-99); Potassium 4.1 mmol/L (3.5-5.1); Sodium 141 mmol/L (137-145)
--- NOTE | 2017-12-05 11:59 | P.DS ---
Providers Date of admission: 12/01/17 17:51 Expected date of discharge: 12/05/17 Attending physician: Guadalupe Lozada Consults: 12/01/17 17:51 Consult Physician Routine Consulting Provider: Greyson Ramos Consult Reason/Comments: known Do you want consulting provider notified?: Yes Primary care physician: Niall Richmond [facility] Course: Discharge diagnosis #1 recurrent episodes of left foot cellulitis, with failed outpatient treatment , at this time patient is maintained on IV vancomycin and IV Unasyn blood culture done and are pending, infectious disease consult requested. blood cultures remains negative. per infectious disease patient remains on Unasyn and vancomycin. Patient to keep Silvadene dressing and Mario wrap in place. Patient has been tolerating Silvadene cream without any signs of reaction. Patient will be discharged on Augmentin by mouth per infectious disease. #2 underlying history of of onychomycosis #3 previous history of MRSA infections #4 underlying history of hypertension #5 underlying history of hyperlipidemia #6 underlying history of gout maintained on allopurinol #7 previous history of oral cancer hospital course Kristina James is an 82-year-old female who presented to [facility] emergency room with left foot erythema and tenderness, patient has known history of recurrent cellulitis, she is followed as outpatient by Dr. 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 Patient has multiple medication ALLERGIES including cefazolin daptomycin Bactrim trimethoprim vancomycin, she is able to take vancomycin IV slowly with Benadryl. X-ray was done on presentation and did not reveal evidence of osteomyelitis. She had previous known infection with MRSA, she had previous history of amputation of the left second toe. On 12/03/2017 patient is alert and oriented 3 in no apparent distress, left foot is wrapped was gauze wrap an Mario wrap patient reports no pain in the left foot she denies any other complaints there is no headache or dizziness no chest pain no shortness of breath no cough no nausea or vomiting no abdominal pain no diarrhea and no urinary symptoms has low-grade fever that is improving On 12/04/2017 patient is alert and oriented 3. Patient is currently resting comfortably wrap patient denies any pain to left foot. Patient denies chest pain or shortness of breath. Patient denies vomiting or diarrhea. Patient denies any urinary burning or frequency. Patient has remained afebrile On 12/05/2017 patient is alert and oriented 3. Patient states she is feeling well and ready to return patient denies chest pain or shortness breath. Patient denies nausea vomiting or diarrhea. Patient denies any urinary burning or frequency. Patient will be discharged home on Augmentin per infectious disease. Patient to follow-up outpatient closely with primary care and infectious disease. I performed an examination of the patient and discussed their management with the Nurse Practitioner. I have reviewed the Nurse Practitioner's notes and agree with the documented findings and plan of care Patient Condition at Discharge: Stable Plan - Discharge Summary New Discharge Prescriptions: New Amoxic-Pot Clav 875-125Mg [Augmentin 875-125] 1 tab PO Q12HR #20 tablet SILVER sulfADIAZINE CREAM [Silvadene Cream] 1 applic TOPICAL HS #1 tube Continue amLODIPine [Norvasc] 5 mg PO HS Pravastatin Sodium [Pravachol] 40 mg PO HS Allopurinol [Zyloprim] 100 mg PO HS Calcium Carbonate [Calcium] 1,200 mg PO DAILY Cholecalciferol [Vitamin D3] 1,000 unit PO DAILY Ferrous Sulfate [Iron (65 MG Elemental)] 650 mg PO DAILY Q Veratrol 2 tab PO DAILY Juvenon 2 tab PO DAILY Aspirin [Adult Low Dose Aspirin EC] 81 mg PO DAILY [place]-3 Fatty Acids/Fish Oil [Fish Oil 1,000 mg Softgel] 2 cap PO DAILY Glucosam/John-Msm1/C/Lincoln/Bosw [Glucosamine-Chondroitin Tablet] 1 tab PO DAILY Discharge Medication List Allopurinol [Zyloprim] 100 mg PO HS 12/23/14 [History] Pravastatin Sodium [Pravachol] 40 mg PO HS 12/23/14 [History] amLODIPine [Norvasc] 5 mg PO HS 12/23/14 [History] Calcium Carbonate [Calcium] 1,200 mg PO DAILY 12/30/14 [History] Cholecalciferol [Vitamin D3] 1,000 unit PO DAILY 03/03/17 [History] Ferrous Sulfate [Iron (65 MG Elemental)] 650 mg PO DAILY 04/17/17 [History] Aspirin [Adult Low Dose Aspirin EC] 81 mg PO DAILY 09/20/17 [History] Glucosam/John-Msm1/C/Lincoln/Bosw [Glucosamine-Chondroitin Tablet] 1 tab PO DAILY 09/20/17 [History] Juvenon 2 tab PO DAILY 09/20/17 [History] [place]-3 Fatty Acids/Fish Oil [Fish Oil 1,000 mg Softgel] 2 cap PO DAILY [History] Q Veratrol 2 tab PO DAILY 09/20/17 [History] Amoxic-Pot Clav 875-125Mg [Augmentin 875-125] 1 tab PO Q12HR #20 tablet [Rx] SILVER sulfADIAZINE CREAM [Silvadene Cream] 1 applic TOPICAL HS #1 tube [Rx] Follow up Appointment(s)/Referral(s): [facility], [NON-STAFF] - Niall Richmond MD [Primary Care Provider] - 1-2 days Activity/Diet/Wound Care/Special Instructions: Activity as tolerated Diet regular Discharge Disposition: HOME SELF-CARE
--- NOTE | 2017-12-05 13:27 | PN ---
PROGRESS NOTE DATE OF SERVICE: 12/05/2017 REASON FOR FOLLOWUP: Left foot cellulitis. INTERVAL HISTORY: The patient was seen on rounds this morning for evaluation of left foot cellulitis and discharge antibiotic recommendation. The patient has been afebrile. Denies having any chest pain or shortness of breath or cough. No abdominal pain or pain to the left foot area. PHYSICAL EXAMINATION: On examination, blood pressure 137/58 with a pulse of 55, temperature 97. She is 98% on room air. General description is an elderly female up in the bed in no distress. RESPIRATORY SYSTEM: Unlabored breathing, clear to auscultation anteriorly. HEART: S1, S2. Regular rate and rhythm. ABDOMEN: Soft, no tenderness. Left foot swelling and redness has much improved, currently with no fluctuation, induration or any open wound. LABS: BUN of 13, creatinine 0.69. Blood culture has been negative. DIAGNOSTIC IMPRESSION AND PLAN: Patient with acute left foot cellulitis, likely from a gram-positive skin varun such as strep. Overall there is improvement on Unasyn. Clinically doubt vancomycin helped as the trough has been on the low side. Hence, we will discharge the patient on Augmentin 875 b.i.d. for 10 days, prescription was sent to the pharmacy, with close outpatient followup. Plan of care was discussed with the nurse practitioner for the admitting team. JOANN / FERMINN: [id number] /
== END 2017-12-05 12:19 | disposition home health service (06) | DRG 603 ==
LOC: EC 14:51 → 4MS4W 17:51
PROVIDERS: ADMIT Internal Medicine; ATTEND Internal Medicine
DX: L03.116 Cellulitis of left lower limb (principal); G62.9 Polyneuropathy, unspecified; B35.1 Tinea unguium; D72.819 Decreased white blood cell count, unspecified; E55.9 Vitamin D deficiency, unspecified; E78.5 Hyperlipidemia, unspecified; K21.9 Gastro-esophageal reflux disease without esophagitis; I10 Essential (primary) hypertension; M19.91 Primary osteoarthritis, unspecified site; I73.00 Raynaud's syndrome without gangrene; M10.9 Gout, unspecified; R32 Unspecified urinary incontinence; Z79.82 Long term (current) use of aspirin; Z79.899 Other long term (current) drug therapy; Z88.4 Allergy status to anesthetic agent; Z86.14 Personal history of Methicillin resistant Staphylococcus aureus infection; Z85.819 Personal history of malignant neoplasm of unspecified site of lip, oral cavity, and pharynx; Z98.51 Tubal ligation status; Z89.422 Acquired absence of other left toe(s); Z98.42 Cataract extraction status, left eye; Z98.41 Cataract extraction status, right eye; Z88.1 Allergy status to other antibiotic agents; Z88.2 Allergy status to sulfonamides; Z83.3 Family history of diabetes mellitus; Z80.0 Family history of malignant neoplasm of digestive organs; Z82.49 Family history of ischemic heart disease and other diseases of the circulatory system; Z80.8 Family history of malignant neoplasm of other organs or systems; Z83.49 Family history of other endocrine, nutritional and metabolic diseases
CPT/HCPCS: 36415; 80048; 80053; 80202; 83605; 84550; 85025; 85610; 85730; 87040; 96365; 99284

== ENCOUNTER → 2018-01-24 | Outpatient (CLI) | payer MEDICARE ==
--- NOTE | 2018-01-24 13:57 | MM ---
Reason for exam: follow-up at short interval from prior study. Last mammogram was performed 7 months ago. History: Patient is postmenopausal, history of other cancer, and had first child at age 33. Benign MG stereo VAD BX addl LT of the left breast, July 14, 2017. Benign MG stereo VAD BX LT of the left breast, July 14, 2017. Benign right mammotome panel of the right breast, December 20, 2004. Benign stereotactic core biopsy of the right breast, July 20, 2000. 2 benign excisional biopsies of the left breast. Took estrogen for 10 years beginning at age 49. Took progesterone for 10 years beginning at age 49. Physical Findings: Nurse did not find any significant physical abnormalities on exam. MG 3D Diag Mammo W/Cad LT CC and MLO view(s) were taken of the left breast. Prior study comparison: June 09, 2017, left breast MG 3d work up w/cad LT. May 30, 2017, bilateral MG 3d screening mammo w/cad. The breast tissue is heterogeneously dense. This may lower the sensitivity of mammography. Stable benign calcifications. Previous mammotome biopsy in the left breast. No significant new findings when compared with previous films. These results were verbally communicated with the patient and result sheet given to the patient on 01/24/18. ASSESSMENT: Benign, BI-RAD 2 RECOMMENDATION: Return to routine screening mammogram schedule for both breasts. Back on schedule.
== END ==
LOC: RADMAMWWP 12:53
PROVIDERS: ATTEND Internal Medicine Infectious Disease
DX: R92.8 Other abnormal and inconclusive findings on diagnostic imaging of breast (principal)
CPT/HCPCS: 77065; G0279; 77061

== ENCOUNTER 2018-06-11 10:52 | Day surgery (SDC) | payer MEDICARE ==
[2018-06-06 15:52] VITALS: BMI 26.6
[~2018-06-11 10:52] MED LIST: SODIUM CHLORIDE 0.9% 1,000 ML IV SCH
[2018-06-11] MEDS ORDERED: CLINDAMYCIN 600 MG in DEXTROSE 5% IN WATER 50 ML IVPB ONE ×2 (11:30)
[2018-06-11] MEDS ORDERED: ceFAZolin IN SWFI 2 GM/20 ML SYRINGE IVP ONE (11:30)
[2018-06-11 11:45] VITALS: PULSE 61; TEMP 98.4
[2018-06-11] MEDS ORDERED: LIDOCAINE 1% INJ 10MG/ML (20 ML MDV) ONE (12:09)
[2018-06-11] MEDS ORDERED: MIDAZOLAM 2 MG/2 ML VIAL IVP ONE (12:15)
[2018-06-11] MEDS ORDERED: fentaNYL (PF) 50 MCG/ML 2 ML AMP ONE (12:16)
[2018-06-11] MEDS ORDERED: fentaNYL (PF) 50 MCG/ML 2 ML AMP IV ONE (12:16)
[2018-06-11] MEDS ORDERED: LIDOCAINE 1% INJ 10MG/ML (20 ML MDV) SQ ONE (12:18)
--- NOTE | 2018-06-11 12:34 | P.PCN ---
Preoperative Diagnosis: Diagnosis Recurrent dizzy spells First degree AV block Loop monitor implant Primary physicians: Dr. hussein Video Game Creator: Dr. Gibson Indication: Recurrent dizzy spells Patient was brought to the EP lab in a fasting state. Written informed consent was obtained prior to the procedure. The left pectoral area was prepped and draped per protocol. Intravenous antibiotic was administered preoperatively. A subcutaneous Loop monitor was implanted successfully and the wound was closed per protocol. The device was programmed to detect significant jill- arrhythmic and tachy-arrhythmic events, per protocol. Device and programming details: Syncope protocol/bradycardia protocol Patient underwent EP procedure under conscious sedation/moderate sedation, monitoring of the level of consciousness and physiologic parameters including but not limited to vital signs and oxygenation. Patient tolerated the procedure well without any acute complications. Start time: 1216 Stop time: 1227 Condition: stable
--- NOTE | 2018-06-11 12:42 | P.PRLE ---
RE: Kristina James Dear Niall Acevedo underwent implantation of loop monitor. She complains of recurrent dizzy spells and weakness as a first-degree AV block. So far on routine Holter monitoring we're not detected any significant bradycardia or pauses but she does not seem to have any symptoms during short term monitoring. Hopefully B we will get a better assessment of any tachycardia or bradycardia events that could precipitate her symptoms of dizziness or even intermittent shortness of breath Thank you for entrusting me with the care of the patient Warm regards Sincerely Mg Hebert
[2018-06-11 14:26] VITALS: RESP 18
[2018-06-11 14:42] VITALS: BP 150/70
== END 2018-06-11 13:45 | disposition home or self-care (01) ==
LOC: CATHEP 10:52
PROVIDERS: ATTEND Internal Medicine Clinical Cardiac Electrophysiology
DX: I44.0 Atrioventricular block, first degree (principal); I10 Essential (primary) hypertension; E78.5 Hyperlipidemia, unspecified; Z79.82 Long term (current) use of aspirin; Z79.899 Other long term (current) drug therapy; Z88.2 Allergy status to sulfonamides; Z88.1 Allergy status to other antibiotic agents
CPT/HCPCS: 33285; C1764; J2250; J2001; J3010

== ENCOUNTER → 2018-07-28 | Outpatient (CLI) | payer MEDICARE ==
[2018-07-28 09:03] LABS: Basophils # (A) 0.1 k/uL (0-0.2); Basophils % (A) 1 %; Eosinophils # (A) 0.3 k/uL (0-0.7); Eosinophils % (A) 5 %; HGB 13.4 gm/dL (11.4-16.0); Lymphocytes # (A) 2.4 k/uL (1.0-4.8); Lymphocytes % (A) 35 %; MCHC 31.8 g/dL (31.0-37.0); Mean Platelet Volume 6.8; Monocytes # (A) 0.5 k/uL (0-1.0); Monocytes % (A) 8 %; Neutrophils # (A) 3.4 k/uL (1.3-7.7); Neutrophils % (A) 49 %; Platelet Count 282 k/uL (150-450); RBC 4.78 m/uL (3.80-5.40); RDW 14.1 % (11.5-15.5); WBC 6.9 k/uL (3.8-10.6)
[2018-07-28 16:10] LABS: Albumin 4.5 g/dL (3.80-4.90); Albumin/Globulin Ratio 2.05 (1.60-3.17); Anion Gap 6.2 mmol/L (4.00-12.00); Calcium 9.7 mg/dL (8.7-10.3); Carbon Dioxide 27.8 mmol/L (21.6-31.8); Globulin 2.2 g/dL (1.6-3.3); LDL Cholesterol,Calculated 96.2 mg/dL (0.0-131.0); Potassium 4.7 mmol/L (3.5-5.5); Total Bilirubin 0.5 mg/dL (0.2-1.2); Total Protein 6.7 g/dL (6.2-8.2); VLDL Calculation 44.8 mg/dL (5.00-40.00)
== END | disposition home or self-care (01) ==
LOC: LABWHC1 08:02
PROVIDERS: ATTEND Podiatrist
DX: E78.00 Pure hypercholesterolemia, unspecified (principal); E55.9 Vitamin D deficiency, unspecified; I10 Essential (primary) hypertension; L97.519 Non-pressure chronic ulcer of other part of right foot with unspecified severity
CPT/HCPCS: 36415; 80053; 80061; 82306; 84134; 85025

== ENCOUNTER → 2018-09-11 | Outpatient (CLI) | payer MEDICARE ==
--- NOTE | 2018-09-11 14:58 | XR ---
Left shoulder HISTORY: Pain 4 views of the left shoulder There is calcification at the acromioclavicular joint. The distal acromion is downturned. Soft tissue calcifications are present, there may be chondrocalcinosis. Left lung apex as visualized is normal. No fracture or dislocation. Probable loop recorder noted over the left chest. IMPRESSION: Consider crystal deposition arthropathy, impingement.
== END | disposition home or self-care (01) ==
LOC: RADXRMAIN 11:47
PROVIDERS: ATTEND Internal Medicine
DX: M19.012 Primary osteoarthritis, left shoulder (principal); M25.812 Other specified joint disorders, left shoulder

== ENCOUNTER 2019-04-12 07:28 | Emergency (ER) | payer MEDICARE ==
[2019-04-12 07:45] VITALS: PULSE 77; RESP 16; TEMP 98.8
[2019-04-12] MEDS ORDERED: DIAZEPAM 2 MG TAB PO STA (07:50)
--- NOTE | 2019-04-12 08:13 | ED ---
Anxiety HPI - General Chief Complaint: Anxiety Stated Complaint: Anxiety Time Seen by Provider: 04/12/19 07:31 Source: EMS Mode of arrival: EMS - History of Present Illness Initial Comments: Patient is an 83-year-old female presenting to the emergency department via EMS with complaints of feeling "shaky." Patient states she had a hard time falling asleep last night and then woke up early this morning shaking. Patient states she felt like she was hyperventilating. She states that yesterday she had a dental cleaning. That has been only change in the last few days. She denies any pain anywhere. She denies any chest pain, shortness of breath, dizziness, nausea, vomiting. She denies any fever, cough. She has no other complaints at this time. Upon arrival to the ER her vitals are stable. - Related Data Home Medications: Home Medications Medication Instructions Recorded Confirmed Allopurinol [Zyloprim] 100 mg PO HS 12/23/14 06/06/18 Pravastatin Sodium [Pravachol] 40 mg PO HS 12/23/14 06/06/18 amLODIPine [Norvasc] 5 mg PO HS 12/23/14 06/06/18 Cholecalciferol [Vitamin D3 (25 1,000 unit PO DAILY 03/03/17 06/06/18 Mcg = 1000 Iu)] Ferrous Sulfate [Iron (65 MG 650 mg PO DAILY 04/17/17 06/06/18 Elemental)] Aspirin [Adult Low Dose Aspirin EC] 81 mg PO DAILY 09/20/17 06/06/18 Glucosam/John-Msm1/C/Lincoln/Bosw 1 tab PO DAILY 09/20/17 06/06/18 [Glucosamine-Chondroitin Tablet] Juvenon 2 tab PO DAILY 09/20/17 06/06/18 [place]-3 Fatty Acids/Fish Oil [Fish 2 cap PO DAILY 09/20/17 06/06/18 Oil 1,000 mg Softgel] Calcium Carbonate [Calcium] 600 mg PO DAILY 06/06/18 06/06/18 Cephalexin [Keflex] 500 mg PO QID 06/06/18 06/06/18 Multivitamins, Thera [Multivitamin 1 tab PO DAILY 06/06/18 06/06/18 (formulary)] SILVER sulfADIAZINE CREAM 1 applic TOPICAL HS PRN 06/06/18 06/06/18 [Silvadene Cream] Allergies/Adverse Reactions: Allergies Allergy/AdvReac Type Severity Reaction Status Date / Time cefazolin [From Kefzol] Allergy Severe Rash/Hives Verified 06/06/18 15:38 daptomycin Allergy Unknown Verified 06/06/18 15:38 vancomycin Allergy Rash/Hives Verified 06/06/18 15:38 Review of Systems ROS Statement: Those systems with pertinent positive or pertinent negative responses have been documented in the HPI. ROS Other: All systems not noted in ROS Statement are negative. Past Medical History Past Medical History: Cancer, GERD/Reflux, Osteoarthritis (OA) Additional Past Medical History / Comment(s): SEE DR PERSAUD H&P, Left foot wound, neuropathy, raynaulds, gout, HIATAL HERNIA, ORAL CANCER 2018 History of Any Multi-Drug Resistant Organisms: MRSA Date of last positivie culture/infection: Unknown Patient states Hx of MRSA. No MRSA at [facility]. MDRO Source:: left foot Past Surgical History: Bladder Surgery, Tonsillectomy, Tubal Ligation Additional Past Surgical History / Comment(s): 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), SINUS BX-NEG, COLONOSCOPY, MICHELLE BREAST BX-NEG, MICHELLE CATARACTS, PT WAS BORN WITH EXTRA THUMB ON RT HAND HAD IT SX REMOVED WHEN SHE WAS AN .BLADDER SUSPENSION, CARBAJAL NEUROMA REMOVED. oral surgery 06/19/17 for removal of cancer, teeth extraction and some bone removal Past Anesthesia/Blood Transfusion Reactions: Previous Problems w/ Anesthesia Additional Past Anesthesia/Blood Transfusion Reaction / Comment(s): Hard time coming out of anesthesia after oral cancer surgery (Patient unsure of this previous notation) Past Psychological History: No Psychological Hx Reported Smoking Status: Never smoker - Past Family History Son(s) Family Medical History: No Reported History Sister(s) Family Medical History: Diabetes Mellitus Brother(s) Family Medical History: No Reported History Mother Family Medical History: Cancer Additional Family Medical History / Comment(s): PANCREATIC CANCER Father Family Medical History: Congestive Heart Failure (CHF) Additional Family Medical History / Comment(s): POLIO Daughter(s) Family Medical History: Cancer Additional Family Medical History / Comment(s): BRAIN General Exam - General Exam Comments Initial Comments: GENERAL: Well-appearing, well-nourished and in no acute distress. HEAD: Atraumatic, normocephalic. EYES: Pupils equal round and reactive to light, extraocular movements intact, sclera anicteric, conjunctiva are normal. ENT: TMs normal, nares patent, oropharynx clear without exudates. Moist mucous membranes. NECK: Normal range of motion, supple without lymphadenopathy or JVD. LUNGS: Breath sounds clear to auscultation bilaterally and equal. No wheezes rales or rhonchi. HEART: Regular rate and rhythm without murmurs, rubs or gallops. ABDOMEN: Soft, nontender, normoactive bowel sounds. No guarding, no rebound. No masses appreciated. : Deferred EXTREMITIES: Normal range of motion, no pitting or edema. No clubbing or cyanosis. NEUROLOGICAL: Cranial nerves II through XII grossly intact. Normal speech, normal gait. PSYCH: Normal mood, normal affect. SKIN: Warm, Dry, normal turgor, no rashes or lesions noted. Limitations: no limitations Course Vital Signs 04/12/19 07:41 Temperature 98.8 F Pulse Rate 77 Respiratory 16 Rate Blood Pressure 143/65 O2 Sat by Pulse 97 Oximetry Medical Decision Making - Medical Decision Making Patient is an 83-year-old female presenting with anxiety earlier this morning. Her vitals are stable. Exam is unremarkable. Influenza is negative. She was reassessed and exam remained stable. She remains afebrile. She denies having any pain anywhere. She denies urinary complaints. I discussed with the patient and patient's daughter. Patient will be given a small dose of Valium to help with anxiety. Daughter states she is at her baseline. Patient is stable for discharge. She'll follow-up with her PCP. Return parameters were discussed with the patient's daughter and she verbalized understanding. - Lab Data Lab Results 04/12/19 Range/Units 07:57 Influenza Type A RNA Not Detected (Not Detectd) Influenza Type B (PCR) Not Detected (Not Detectd) Disposition Clinical Impression: Acute anxiety Disposition: HOME SELF-CARE Condition: Stable Instructions (If sedation given, give patient instructions): Anxiety (ED) Additional Instructions: Please return to the Emergency Department if symptoms worsen or any other concerns such as fever, shortness of breath, urinary symptoms. Follow-up with primary care physician. Is patient prescribed a controlled substance at d/c from ED?: No Referrals: Guadalupe Lozada MD [Primary Care Provider] - 1-2 days
[2019-04-12 08:45] VITALS: BP 132/76
== END 2019-04-12 08:43 | disposition home or self-care (01) ==
LOC: EC 07:28
DX: F41.9 Anxiety disorder, unspecified (principal); Z79.899 Other long term (current) drug therapy; Z79.82 Long term (current) use of aspirin; Z88.1 Allergy status to other antibiotic agents; Z85.818 Personal history of malignant neoplasm of other sites of lip, oral cavity, and pharynx; Z89.422 Acquired absence of other left toe(s)
CPT/HCPCS: 87502; 99283

== ENCOUNTER → 2019-11-15 | Outpatient (CLI) | payer MEDICARE ==
--- NOTE | 2019-11-15 11:00 | XR ---
EXAMINATION TYPE: XR foot complete LT DATE OF EXAM: 11/15/2019 COMPARISON: 12/02/2017 HISTORY: Open wound TECHNIQUE: Three-view left foot FINDINGS: There is amputation of the second metatarsal. There is valgus deformity of the distal first digit. Degenerative joint changes are at the tarsometatarsal junction. Varus deformity of the distal fifth digit is evident. Plantar calcaneal heel spur is present. Hammertoes are present. No suspiciou s cortical erosions to suggest osteomyelitis are evident. Soft tissue erosion along the plantar aspec t of the foot is present. COMPARISON: 12/02/2017. No significant interval changes evident. IMPRESSION: 1. Soft tissue erosion plantar distal foot. 2. No suspicious changes to suggest osteomyelitis radiographically apparent. 3. Postsurgical changes
[2019-11-15 12:28] LABS: Basophils % (A) 1 %; Eosinophils # (A) 0.4 k/uL (0-0.7); Eosinophils % (A) 5 %; HCT 38.2 % (34.0-46.0); HGB 11.9 gm/dL (11.4-16.0); Lymphocytes # (A) 2.8 k/uL (1.0-4.8); Lymphocytes % (A) 40 %; MCH 27.6 pg (25.0-35.0); MCHC 31.2 g/dL (31.0-37.0); MCV 88.4 fL (80.0-100.0); Mean Platelet Volume 7.1; Monocytes # (A) 0.5 k/uL (0-1.0); Monocytes % (A) 7 %; Neutrophils # (A) 3.2 k/uL (1.3-7.7); Neutrophils % (A) 45 %; Platelet Count 398 k/uL (150-450); RBC 4.32 m/uL (3.80-5.40); RDW 12.2 % (11.5-15.5); WBC 6.9 k/uL (3.8-10.6)
[2019-11-15 19:19] LABS: African American GFR (CKD) 96.3 (60.0-200.0); Albumin 4.4 g/dL (3.80-4.90); Albumin/Globulin Ratio 1.91 (1.60-3.17); Anion Gap 6.6 mmol/L (4.00-12.00); BUN/Creat Ratio 23.33 Ratio (12.00-20.00); Calcium 9.5 mg/dL (8.7-10.3); Carbon Dioxide 28.4 mmol/L (21.6-31.8); Globulin 2.3 g/dL (1.6-3.3); Non-African American GFR(CKD) 83.1 (60.0-200.0); Total Bilirubin 0.4 mg/dL (0.3-1.2); Total Protein 6.7 g/dL (6.2-8.2)
== END | disposition home or self-care (01) ==
LOC: LABWHC1 10:19
PROVIDERS: ATTEND Podiatrist
DX: M79.89 Other specified soft tissue disorders (principal); Z98.890 Other specified postprocedural states; G90.09 Other idiopathic peripheral autonomic neuropathy; I10 Essential (primary) hypertension; I73.9 Peripheral vascular disease, unspecified
CPT/HCPCS: 36415; 80053; 84134; 85025

== ENCOUNTER → 2019-11-19 | Outpatient (CLI) | payer MEDICARE ==
--- NOTE | 2019-11-20 11:37 | P.ARTDOP ---
Arterial Doppler LOWER EXTREMITY ARTERIAL DOPPLER: DATE OF SERVICE: 11/19/2019 Reason for study: Left foot ulcer. Doppler waveforms: Multiphasic bilaterally throughout. Pulse volume recording: []. Pressure gradients: None. Ankle-brachial indices: Greater than 1 bilaterally. Toe brachial indices: Cannot occlude either side. Waveforms are good . Impression: Normal flow pattern. Suspect calcific wall disease. Not of hemodynamic significance..
== END | disposition home or self-care (01) ==
LOC: RADUSWWP 09:20
PROVIDERS: ATTEND Podiatrist
DX: I73.9 Peripheral vascular disease, unspecified (principal); I10 Essential (primary) hypertension; G90.09 Other idiopathic peripheral autonomic neuropathy; L97.522 Non-pressure chronic ulcer of other part of left foot with fat layer exposed
CPT/HCPCS: 93922; 93923

== ENCOUNTER → 2020-01-22 | Outpatient (CLI) | payer MEDICARE ==
--- NOTE | 2020-01-22 12:28 | XR ---
EXAMINATION TYPE: XR foot complete LT DATE OF EXAM: 01/22/2020 CLINICAL HISTORY: non healing wound left plantar foot TECHNIQUE: Frontal, lateral and oblique images of the left foot are obtained. COMPARISON: 11/15/2019 FINDINGS: Overlying soft tissue cast material limits evaluation. Soft tissue ulceration along the pl joanne aspect of the left foot is noted. No obvious destructive changes to suggest osteomyelitis at th is time however symptoms persist triple phase bone scan or WBC scan is advised. There is amputation o f the second metatarsal. There is valgus deformity of the distal first digit. Degenerative joint dominguez ges are at the tarsometatarsal junction. Varus deformity of the distal fifth digit is evident. Hammer toes are present. IMPRESSION: Overlying soft tissue cast material limits evaluation. Soft tissue ulceration along the plantar aspec t of the left foot is noted. No obvious destructive changes to suggest osteomyelitis at this time how ever symptoms persist triple phase bone scan or WBC scan is advised.
== END | disposition home or self-care (01) ==
LOC: RADXRMAIN 11:50
PROVIDERS: ATTEND Nurse Practitioner Family
DX: L97.529 Non-pressure chronic ulcer of other part of left foot with unspecified severity (principal)

== ENCOUNTER 2020-03-06 17:19 | Emergency (ER) | payer MEDICARE ==
[2020-03-06 17:32] VITALS: RESP 18; TEMP 97.6
--- NOTE | 2020-03-06 18:13 | ED ---
General Adult HPI - General Chief complaint: Extremity Injury, Lower Stated complaint: possible DVT, Cellulitis Time Seen by Provider: 03/06/20 17:37 Source: patient, RN notes reviewed, old records reviewed Mode of arrival: ambulatory Limitations: no limitations - History of Present Illness Initial comments: 84-year-old female presenting for evaluation of left leg swelling, rule out DVT. She was sent in from the adapted physical education aide. She sees a plan for chronic wound on her left foot which is been present for 20 years she states. She denies fever. She denies cough or dyspnea. - Related Data Home Medications Medication Instructions Recorded Confirmed Pravastatin Sodium [Pravachol] 80 mg PO DAILY 12/23/14 03/06/20 allopurinoL [Zyloprim] 100 mg PO DAILY 12/23/14 03/06/20 amLODIPine [Norvasc] 5 mg PO DAILY 12/23/14 03/06/20 Ferrous Sulfate [Iron (65 MG 325 mg PO DAILY 04/17/17 03/06/20 Elemental)] Aspirin [Adult Low Dose Aspirin EC] 81 mg PO DAILY 09/20/17 03/06/20 Glucosam/John-Msm1/C/Lincoln/Bosw 1 tab PO DAILY 09/20/17 03/06/20 [Glucosamine-Chondroitin Tablet] Juvenon 2 tab PO DAILY 09/20/17 03/06/20 [place]-3 Fatty Acids/Fish Oil [Fish 2 cap PO DAILY 09/20/17 03/06/20 Oil 1,000 mg Softgel] Calcium Carbonate [Calcium] 600 mg PO BID 06/06/18 03/06/20 Multivitamins, Thera [Multivitamin 1 tab PO DAILY 06/06/18 03/06/20 (formulary)] Amoxicillin/Potassium Clav 1 tab PO BID 03/06/20 03/06/20 [Augmentin 875-125 Tablet] Ergocalciferol (Vitamin D2) 1,250 mcg PO MARSH 03/06/20 03/06/20 [Drisdol (50,000 units)] Fenofibrate Nanocrystallized 145 mg PO DAILY 03/06/20 03/06/20 [Fenofibrate] Previous Rx's Medication Instructions Recorded Clindamycin [Cleocin] 450 mg PO TID 7 Days #21 cap 03/06/20 Allergies Allergy/AdvReac Type Severity Reaction Status Date / Time cefazolin [From fzol] Allergy Severe Rash/Hives Verified 03/06/20 18:19 daptomycin Allergy Unknown Verified 03/06/20 18:19 vancomycin Allergy Rash/Hives Verified 03/06/20 18:19 Review of Systems ROS Statement: Those systems with pertinent positive or pertinent negative responses have been documented in the HPI. ROS Other: All systems not noted in ROS Statement are negative. Past Medical History Past Medical History: Cancer, GERD/Reflux, Osteoarthritis (OA) Additional Past Medical History / Comment(s): SEE DR PERSAUD H&P, Left foot wound, neuropathy, raynaulds, gout, HIATAL HERNIA, ORAL CANCER 2018 History of Any Multi-Drug Resistant Organisms: MRSA Date of last positivie culture/infection: Unknown Patient states Hx of MRSA. No MRSA at [facility]. MDRO Source:: left foot Past Surgical History: Bladder Surgery, Tonsillectomy, Tubal Ligation Additional Past Surgical History / Comment(s): 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), SINUS BX-NEG, COLONOSCOPY, MICHELLE BREAST BX-NEG, MICHELLE CATARACTS, PT WAS BORN WITH EXTRA THUMB ON RT HAND HAD IT SX REMOVED WHEN SHE WAS AN INFANT.BLADDER SUSPENSION, CARBAJAL NEUROMA REMOVED. oral surgery 06/19/17 for removal of cancer, teeth extraction and some bone removal Past Anesthesia/Blood Transfusion Reactions: Previous Problems w/ Anesthesia Additional Past Anesthesia/Blood Transfusion Reaction / Comment(s): Hard time coming out of anesthesia after oral cancer surgery (Patient unsure of this previous notation) Past Psychological History: No Psychological Hx Reported Smoking Status: Never smoker Past Alcohol Use History: None Reported Past Drug Use History: None Reported - Past Family History Son(s) Family Medical History: No Reported History Sister(s) Family Medical History: Diabetes Mellitus Brother(s) Family Medical History: No Reported History Mother Family Medical History: Cancer Additional Family Medical History / Comment(s): PANCREATIC CANCER Father Family Medical History: Congestive Heart Failure (CHF) Additional Family Medical History / Comment(s): POLIO Daughter(s) Family Medical History: Cancer Additional Family Medical History / Comment(s): BRAIN General Exam Limitations: no limitations General appearance: alert, in no apparent distress Head exam: Present: atraumatic, normocephalic Eye exam: Present: normal appearance, PERRL ENT exam: Present: normal exam Neck exam: Present: normal inspection. Absent: tenderness Respiratory exam: Present: normal lung sounds bilaterally. Absent: respiratory distress, wheezes Cardiovascular Exam: Present: regular rate, normal rhythm GI/Abdominal exam: Present: soft. Absent: distended, tenderness, guarding, rebound Extremities exam: Present: joint swelling (Patient has some erythema and swelling to the left calf. No tenderness. No fluctuance, no induration.) Neurological exam: Present: alert, oriented X3, CN II-XII intact. Absent: motor sensory deficit Psychiatric exam: Present: normal affect, normal mood Skin exam: Present: warm Course Vital Signs 03/06/20 17:28 Temperature 97.6 F Pulse Rate 78 Respiratory 18 Rate Blood Pressure 169/76 O2 Sat by Pulse 100 Oximetry Medical Decision Making - Medical Decision Making 84-year-old female with left leg swelling, minimal erythema, chronic wound left foot. Patient is afebrile and nontoxic appearing. Ultrasound performed which is negative for DVT. Patient has been on Bactrim, she will continue antibiotics. She will continue to follow with her primary care physician and podiatry. She's given strict return parameters. Disposition Clinical Impression: Cellulitis of left leg Disposition: HOME SELF-CARE Condition: Fair Instructions (If sedation given, give patient instructions): Cellulitis (ED) Prescriptions: Clindamycin [Cleocin] 450 mg PO TID 7 Days #21 cap Is patient prescribed a controlled substance at d/c from ED?: No Referrals: Guadalupe Lozada MD [Primary Care Provider] - 1-2 days Time of Disposition: 18:50
--- NOTE | 2020-03-06 18:40 | US ---
EXAMINATION TYPE: US venous doppler duplex LE LT DATE OF EXAM: 03/06/2020 6:34 PM COMPARISON: NONE CLINICAL HISTORY: dvt?. edema left leg SIDE PERFORMED: left TECHNIQUE: The lower extremity deep venous system is examined utilizing real time linear array sonog elizabeth with graded compression, doppler sonography and color-flow sonography. VESSELS IMAGED: Common Femoral Vein Deep Femoral Vein Greater Saphenous Vein * Femoral Vein Popliteal Vein Small Saphenous Vein * Proximal Calf Veins (* superficial vessels) Left Leg: no evidence of DVT IMPRESSION: No sign of deep vein thrombosis in the left leg.
[2020-03-06 19:17] VITALS: BP 167/71; PULSE 75
== END 2020-03-06 19:17 | disposition home or self-care (01) ==
LOC: EC 17:19
DX: L03.116 Cellulitis of left lower limb (principal); M10.9 Gout, unspecified; K21.9 Gastro-esophageal reflux disease without esophagitis; M19.90 Unspecified osteoarthritis, unspecified site; Z79.82 Long term (current) use of aspirin; Z79.899 Other long term (current) drug therapy; Z88.1 Allergy status to other antibiotic agents; Z85.819 Personal history of malignant neoplasm of unspecified site of lip, oral cavity, and pharynx; Z86.14 Personal history of Methicillin resistant Staphylococcus aureus infection; Z90.89 Acquired absence of other organs; Z98.42 Cataract extraction status, left eye; Z98.41 Cataract extraction status, right eye; Z80.0 Family history of malignant neoplasm of digestive organs; Z80.8 Family history of malignant neoplasm of other organs or systems
CPT/HCPCS: 99284

== ENCOUNTER 2021-06-16 14:55 | Inpatient (IN) | payer MEDICARE ==
[2021-06-16] MEDS ORDERED: SODIUM CHLORIDE 0.9% 1,000 ML IV STA (15:21)
--- NOTE | 2021-06-16 15:24 | ED ---
General Adult HPI - General Chief complaint: Fall Stated complaint: Fall/rt hip injury Source: patient, family, EMS, RN notes reviewed, old records reviewed Mode of arrival: EMS Limitations: physical limitation - History of Present Illness Initial comments: 86-year-old female presents status post fall. Patient fell while putting away her groceries. She fell backwards striking the posterior aspect of her head. No loss conscious. No anticoagulation. She does take 81 mg of aspirin daily. Patient complaining of right hip pain after the fall. She was unable to ambulate and was transported by paramedics. She is given 10 mg of morphine during transport. - Related Data Home Medications Medication Instructions Recorded Confirmed Pravastatin Sodium [Pravachol] 80 mg PO DAILY 12/23/14 03/06/20 allopurinoL [Zyloprim] 100 mg PO DAILY 12/23/14 03/06/20 amLODIPine [Norvasc] 5 mg PO DAILY 12/23/14 03/06/20 Ferrous Sulfate [Iron (65 MG 325 mg PO DAILY 04/17/17 03/06/20 Elemental)] Aspirin [Adult Low Dose Aspirin EC] 81 mg PO DAILY 09/20/17 03/06/20 Glucosam/John-Msm1/C/Lincoln/Bosw 1 tab PO DAILY 09/20/17 03/06/20 [Glucosamine-Chondroitin Tablet] Juvenon 2 tab PO DAILY 09/20/17 03/06/20 [place]pp[place]-3 Fatty Acids/Fish Oil [Fish 2 cap PO DAILY 09/20/17 03/06/20 Oil 1,000 mg Softgel] Calcium Carbonate [Calcium] 600 mg PO BID 06/06/18 03/06/20 Multivitamins, Thera [Multivitamin 1 tab PO DAILY 06/06/18 03/06/20 (formulary)] Amoxicillin/Potassium Clav 1 tab PO BID 03/06/20 03/06/20 [Augmentin 875-125 Tablet] Ergocalciferol (Vitamin D2) 1,250 mcg PO MARSH 03/06/20 03/06/20 [Drisdol (50,000 units)] Fenofibrate Nanocrystallized 145 mg PO DAILY 03/06/20 03/06/20 [Fenofibrate] Previous Rx's Medication Instructions Recorded Clindamycin [Cleocin] 450 mg PO TID 7 Days #21 cap 03/06/20 Allergies Allergy/AdvReac Type Severity Reaction Status Date / Time cefazolin [From Kefzol] Allergy Severe Rash/Hives Verified 06/16/21 14:58 daptomycin Allergy Unknown Verified 06/16/21 14:58 vancomycin Allergy Rash/Hives Verified 06/16/21 14:58 Review of Systems ROS Statement: Those systems with pertinent positive or pertinent negative responses have been documented in the HPI. ROS Other: All systems not noted in ROS Statement are negative. Past Medical History Past Medical History: Cancer, GERD/Reflux, Osteoarthritis (OA) Additional Past Medical History / Comment(s): SEE DR PERSAUD H&P, Left foot wound, neuropathy, raynaulds, gout, HIATAL HERNIA, ORAL CANCER 2018 History of Any Multi-Drug Resistant Organisms: MRSA Date of last positivie culture/infection: Unknown Patient states Hx of MRSA. No MRSA at [facility]. MDRO Source:: left foot Past Surgical History: Bladder Surgery, Tonsillectomy, Tubal Ligation Additional Past Surgical History / Comment(s): 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), SINUS BX-NEG, COLONOSCOPY, MICHELLE BREAST BX-NEG, MICHELLE CATARACTS, PT WAS BORN WITH EXTRA THUMB ON RT HAND HAD IT SX REMOVED WHEN SHE WAS AN INFANT.BLADDER SUSPENSION, CARBAJAL NEUROMA REMOVED. oral surgery 06/19/17 for removal of cancer, teeth extraction and some bone removal Past Anesthesia/Blood Transfusion Reactions: Previous Problems w/ Anesthesia Additional Past Anesthesia/Blood Transfusion Reaction / Comment(s): Hard time coming out of anesthesia after oral cancer surgery (Patient unsure of this previous notation) Past Psychological History: No Psychological Hx Reported Smoking Status: Never smoker Past Alcohol Use History: None Reported Past Drug Use History: None Reported - Past Family History Son(s) Family Medical History: No Reported History Sister(s) Family Medical History: Diabetes Mellitus Brother(s) Family Medical History: No Reported History Mother Family Medical History: Cancer Additional Family Medical History / Comment(s): PANCREATIC CANCER Father Family Medical History: Congestive Heart Failure (CHF) Additional Family Medical History / Comment(s): POLIO Daughter(s) Family Medical History: Cancer Additional Family Medical History / Comment(s): BRAIN General Exam Limitations: physical limitation General appearance: alert, in no apparent distress Head exam: Present: other (2 cm occipital laceration with no active bleeding.) Eye exam: Present: normal appearance, PERRL ENT exam: Present: normal exam Neck exam: Present: normal inspection. Absent: tenderness, meningismus Respiratory exam: Present: normal lung sounds bilaterally. Absent: respiratory distress, wheezes Cardiovascular Exam: Present: regular rate, normal rhythm GI/Abdominal exam: Present: soft. Absent: distended, tenderness, guarding Extremities exam: Present: normal capillary refill, other (Right lower extremity is externally rotated, shortened with significant pain with any range of motion at the hip. Distal pulses are intact.). Absent: full ROM, pedal edema Neurological exam: Present: alert, oriented X3 Psychiatric exam: Present: normal affect, normal mood Skin exam: Present: warm, dry, intact. Absent: cyanosis, diaphoretic Course Vital Signs 06/16/21 06/16/21 15:01 16:21 Temperature 97.3 F L Pulse Rate 71 70 Respiratory 18 18 Rate Blood Pressure 167/90 181/73 O2 Sat by Pulse 100 100 Oximetry - Reevaluation(s) Reevaluation #1: 06/16/21 15:23 Patient had pain medication prior to arrival and not requesting further medication at this time. EKG Findings - EKG Comments: EKG Findings:: EKG: Sinus rhythm with first-degree AV block, rate 71, SD interval 220, QRS duration 79, QTC 432, no ST segment elevation. Procedures - Laceration Laceration #1 Consent Obtained: verbal consent Indication: laceration Site: scalp Size (cm): 2 Description: linear Depth: simple, single layer Pre-repair: wound explored, irrigated extensively, deep structures intact Type of Sutures: other (elizabeth) Size of Sutures: other (elizabeth) Technique: simple, interrupted Patient Tolerated Procedure: well Medical Decision Making - Medical Decision Making 86-year-old female with fall, right hip pain, headache injury with 2 cm lacerati on which is repaired with 2 elizabeth in the emergency department. Head CT negative for intracranial hemorrhage or mass effect. CT brain negative for fracture subluxation. X-ray of the right hip and pelvis does show a femoral neck fracture. Patient will be admitted to orthopedics with internal medicine on consult. She will be kept nothing by mouth after midnight. Case discussed with Alf aviles for orthopedics. - Lab Data Result diagrams: 06/16/21 15:30 06/16/21 15:30 Lab Results 06/16/21 06/16/21 06/16/21 Range/Units 15:25 15:30 15:30 WBC 10.7 H (3.8-10.6) k/uL RBC 4.26 (3.80-5.40) m/uL Hgb 12.7 (11.4-16.0) gm/dL Hct 38.9 (34.0-46.0) % MCV 91.3 (80.0-100.0) fL MCH 29.8 (25.0-35.0) pg MCHC 32.7 (31.0-37.0) g/dL RDW 12.9 (11.5-15.5) % Plt Count 316 (150-450) k/uL MPV 7.9 Neutrophils % 46 % Lymphocytes % 42 % Monocytes % 5 % Eosinophils % 4 % Basophils % 1 % Neutrophils # 4.9 (1.3-7.7) k/uL Lymphocytes # 4.5 (1.0-4.8) k/uL Monocytes # 0.5 (0-1.0) k/uL Eosinophils # 0.4 (0-0.7) k/uL Basophils # 0.1 (0-0.2) k/uL PT 11.2 (9.0-12.0) sec INR 1.0 (<1.2) APTT 22.2 (22.0-30.0) sec Sodium (137-145) mmol/L Potassium (3.5-5.1) mmol/L Chloride (98-107) mmol/L Carbon Dioxide (22-30) mmol/L Anion Gap mmol/L BUN (7-17) mg/dL Creatinine (0.52-1.04) mg/dL Est GFR (CKD-EPI)AfAm (>60 ml/min/1.73 sqM) Est GFR (CKD-EPI)NonAf (>60 ml/min/1.73 sqM) Glucose (74-99) mg/dL Calcium (8.4-10.2) mg/dL Total Bilirubin (0.2-1.3) mg/dL AST (14-36) U/L ALT (4-34) U/L Alkaline Phosphatase (38-126) U/L Total Protein (6.3-8.2) g/dL Albumin (3.5-5.0) g/dL Blood Type B Positive Blood Type Recheck B Pos Bld Type Recheck Status No Antibody Screen NEGATIVE Spec Expiration Date 06/19/2021232406/16/21 Range/Units 15:30 WBC (3.8-10.6) k/uL RBC (3.80-5.40) m/uL Hgb (11.4-16.0) gm/dL Hct (34.0-46.0) % MCV (80.0-100.0) fL MCH (25.0-35.0) pg MCHC (31.0-37.0) g/dL RDW (11.5-15.5) % Plt Count (150-450) k/uL MPV Neutrophils % % Lymphocytes % % Monocytes % % Eosinophils % % Basophils % % Neutrophils # (1.3-7.7) k/uL Lymphocytes # (1.0-4.8) k/uL Monocytes # (0-1.0) k/uL Eosinophils # (0-0.7) k/uL Basophils # (0-0.2) k/uL PT (9.0-12.0) sec INR (<1.2) APTT (22.0-30.0) sec Sodium 138 (137-145) mmol/L Potassium 4.4 (3.5-5.1) mmol/L Chloride 106 (98-107) mmol/L Carbon Dioxide 23 (22-30) mmol/L Anion Gap 9 mmol/L BUN 23 H (7-17) mg/dL Creatinine 0.64 (0.52-1.04) mg/dL Est GFR (CKD-EPI)AfAm >90 (>60 ml/min/1.73 sqM) Est GFR (CKD-EPI)NonAf 81 (>60 ml/min/1.73 sqM) Glucose 93 (74-99) mg/dL Calcium 9.4 (8.4-10.2) mg/dL Total Bilirubin 0.6 (0.2-1.3) mg/dL AST 30 (14-36) U/L ALT 16 (4-34) U/L Alkaline Phosphatase 63 (38-126) U/L Total Protein 7.2 (6.3-8.2) g/dL Albumin 4.0 (3.5-5.0) g/dL Blood Type Blood Type Recheck Bld Type Recheck Status Antibody Screen Spec Expiration Date Disposition Clinical Impression: Fall, Displaced fracture of right femoral neck Disposition: ADMITTED IP TO THIS HOSP Condition: Stable Is patient prescribed a controlled substance at d/c from ED?: No Referrals: Guadalupe Lozada MD [Primary Care Provider] - 1-2 days Time of Disposition: 16:32 Decision to Admit Reason: Admit from EC Decision Date: 06/16/21
[2021-06-16 15:49] LABS: Basophils # (A) 0.1 k/uL (0-0.2); Basophils % (A) 1 %; Eosinophils # (A) 0.4 k/uL (0-0.7); Eosinophils % (A) 4 %; HCT 38.9 % (34.0-46.0); HGB 12.7 gm/dL (11.4-16.0); Lymphocytes # (A) 4.5 k/uL (1.0-4.8); Lymphocytes % (A) 42 %; MCH 29.8 pg (25.0-35.0); MCHC 32.7 g/dL (31.0-37.0); MCV 91.3 fL (80.0-100.0); Mean Platelet Volume 7.9; Monocytes # (A) 0.5 k/uL (0-1.0); Monocytes % (A) 5 %; Neutrophils # (A) 4.9 k/uL (1.3-7.7); Neutrophils % (A) 46 %; Platelet Count 316 k/uL (150-450); RBC 4.26 m/uL (3.80-5.40); RDW 12.9 % (11.5-15.5); WBC 10.7 k/uL (3.8-10.6)
[2021-06-16 16:00] LABS: Partial Thromboplastin Time 22.2 sec (22.0-30.0); Prothrombin Time 11.2 sec (9.0-12.0)
[2021-06-16 16:08] LABS: ALT 16 U/L (4-34); AST 30 U/L (14-36); African American GFR (CKD) >90 (>60 ml/min/1.73 sqM); Alkaline Phosphatase 63 U/L (38-126); Anion Gap 9 mmol/L; Blood Urea Nitrogen 23 mg/dL (7-17); Calcium 9.4 mg/dL (8.4-10.2); Carbon Dioxide 23 mmol/L (22-30); Chloride 106 mmol/L (98-107); Glucose 93 mg/dL (74-99); Non-African American GFR(CKD) 81 (>60 ml/min/1.73 sqM); Potassium 4.4 mmol/L (3.5-5.1); Sodium 138 mmol/L (137-145); Total Bilirubin 0.6 mg/dL (0.2-1.3); Total Protein 7.2 g/dL (6.3-8.2)
[2021-06-16] MEDS ORDERED: HYDROmorphone 0.5 MG/0.5 ML SYRINGE IVP STA (16:11)
--- NOTE | 2021-06-16 16:20 | XR ---
EXAMINATION TYPE: XR Hip RT and AP Pelvis DATE OF EXAM: 06/16/2021 COMPARISON: NONE HISTORY: Trauma and pain TECHNIQUE: A single AP view of the pelvis is obtained. Two views of the right hip are obtained. FINDINGS: There is acute displaced comminuted right femoral neck fracture. Bone mineralization is re duced. No dislocation. impression: Right femoral neck fracture as described
--- NOTE | 2021-06-16 16:22 | XR ---
EXAMINATION TYPE: XR chest 1V portable DATE OF EXAM: 06/16/2021 COMPARISON: Chest x-ray 05/05/2017 HISTORY: Trauma and pain TECHNIQUE: Single frontal view of the chest is obtained. FINDINGS: There is no focal air space opacity, pleural effusion, or pneumothorax seen. The cardiac silhouette size is within normal limits. Loop recorder is present over the left chest. Patient is rot ated. The osseous structures are intact. IMPRESSION: No acute process.
--- NOTE | 2021-06-16 16:28 | CT ---
EXAMINATION TYPE: CT brain ash wo con DATE OF EXAM: 06/16/2021 COMPARISON: CT dated 02/27/2016 HISTORY: Fall. CT DLP: 1285.3 mGycm Automated exposure control for dose reduction was used. TECHNIQUE: CT scan of the head and cervical spine are performed without contrast. FINDINGS: Brain: Brain volume loss changes and suspected bilateral cerebral white matter chronic microvascular ischemi c changes. No acute intracranial hemorrhage or gross acute cortical infarct. No midline shift or sepideh iation. Unremarkable basal cisterns, sella and CP angles. No gross space-occupying lesion, vasogenic edema or mass effect. No gross orbital abnormality. Extens emerson mucosal thickening of the paranasal sinuses sparing the sphenoid sinus and the posterior ethmoid air cells with changes suggestive of severe chronic sinusitis. Osteopenia. No definite acute calvaria l bone fracture identified. Cervical spine: Preserved cervical curvature. No significant anterolisthesis or retrolisthesis. No definite vertebral body collapse or acute displaced fracture. Unremarkable atlantoaxial and atlantooccipital articulati ons. No facet dislocation or significant subluxation. Degenerative changes of the atlantoodontoid articulation as well as the cervical spine. Multilevel fa cet osteoarthropathy is also noted more on the left side. Scattered arterial atherosclerotic calcific ations. No paraspinal lesion. IMPRESSION: 1. No acute intracranial posttraumatic sequela or acute calvarial bone fracture. 2. No acute traumatic bony injury of cervical spine. 3. Severe paranasal sinus disease as described above, please correlate clinically. Further ENT consul tation can be considered. Other incidental findings as described above.
[2021-06-16] MEDS ORDERED: NALOXONE 0.4 MG/ML 1 ML VIAL IV PRN (16:30)
--- NOTE | 2021-06-16 17:52 | CT ---
EXAMINATION TYPE: CT hip RT wo con DATE OF EXAM: 06/16/2021 COMPARISON: None HISTORY: Right hip pain after fall. TECHNIQUE: CT scan of the right hip joint without contrast CT DLP: 657.3 mGycm Automated exposure control for dose reduction was used. FINDINGS: There is an acute comminuted fracture involving the right proximal femur predominantly involving the neck, lesser and greater trochanter. There is displacement of the lesser trochanter anteriorly and me dially about 9 mm. The fracture line extends along its superior aspect reaching the anterior tip of the acetabulum, ther e is tiny fragment superior to the lateral superior rim of the acetabulum which may represent tiny av ulsion injury of the acetabulum this is seen on image 37 series 202. There is air within the right gee int space. There is marked soft tissue swelling of the anterior thigh musculature at the level of the hip joint. Small hematoma is likely present as well. No evidence for active hemorrhage though this is not a con trast enhanced CT. Hip joint remains normal in alignment without dislocation. Mild arthritic changes seen in the right sacroiliac joint and pubic symphysis. IMPRESSION: COMMINUTED RIGHT PROXIMAL FEMUR FRACTURE DESCRIBED ABOVE. NOTE POSSIBLE TINY AVULSION INJURY FROM THE SUPERIOR LATERAL ACETABULUM AND RIGHT HIP JOINT FOCI OF AIR WITH LIKELY INTRA-ARTICULAR EXTENSION OF THE FRACTURE.
--- NOTE | 2021-06-16 17:56 | XR ---
EXAMINATION TYPE: XR femur RT DATE OF EXAM: 06/16/2021 COMPARISON: CT of the right hip performed on the same day HISTORY: 86 years Female. STUDY INDICATION GIVEN: fall . TECHNIQUE: Frontal and lateral radiographs of the right femur IMPRESSION: Comminuted slightly displaced fracture of the proximal femur, please refer to dedicated CT of the rig ht hip joint from the same day for details . Adjacent soft tissue swelling.No right hip joint disloca tion. Osteoarthrosis of the right knee
[2021-06-16] MEDS ORDERED: ONDANSETRON 4 MG/2 ML VIAL IVP PRN (18:27)
[2021-06-16] MEDS: HYDROmorphone 0.5 MG/0.5 ML SYRINGE IVP PRN (18:40)
[2021-06-16] MEDS: HYDROmorphone 1 MG/ML 1 ML SYRINGE IVP PRN (21:45)
[2021-06-17] MEDS: HYDROmorphone 1 MG/ML 1 ML SYRINGE IVP PRN ×4 (01:27→22:31)
--- NOTE | 2021-06-17 10:15 | P.CONS ---
History of Present Illness - History of Present Illness Covering Dr. 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 Gibson, history of neuropathy, raynaulds, gout, HIATAL HERNIA, ORAL CANCER 2017 She presents because of fall and hip fracture. She was doing the grocery with family yesterday when she tripped and fell. Patient denies dizziness or syncope. Patient denies chest pain or dyspnea. No breathing difficulties or coughing. No change in urine or bowel habits. No dysuria or urgency. No fever. She denies smoking, alcohol or illicit drugs. Vitals are stable. Not shown only mild leukocytosis of 10.7, rest of CBC, INR, BMP and liver enzymes and electrolytes are unremarkable. CT scan of the right hip: Comminuted right proximal femoral fracture Review of Systems CONSTITUTIONAL: No fever, no malaise, no fatigue. HEENT: No recent visual problems or hearing problems. Denied any sore throat. CARDIOVASCULAR: No orthopnea, PND, no palpitations, no syncope. PULMONARY: No shortness of breath, no cough, no hemoptysis. GASTROINTESTINAL: No diarrhea, no nausea, no vomiting, no abdominal pain. Normoactive bowel sounds. NEUROLOGICAL: No headaches, no weakness, no numbness. HEMATOLOGICAL: Denies any bleeding or petechiae. GENITOURINARY: Denies any burning micturition, frequency, or urgency. MUSCULOSKELETAL/RHEUMATOLOGICAL: Denies any joint pain, swelling, or any muscle pain. ENDOCRINE: Denies any polyuria or polydipsia. Past Medical History Past Medical History: Cancer, GERD/Reflux, Osteoarthritis (OA) Additional Past Medical History / Comment(s): SEE DR PERSAUD H&P, Left foot wound, neuropathy, raynaulds, gout, HIATAL HERNIA, ORAL CANCER 2018 History of Any Multi-Drug Resistant Organisms: MRSA Year Discovered:: Unknown Patient states Hx of MRSA. No MRSA at [facility]. MDRO Source:: left foot Past Surgical History: Bladder Surgery, Tonsillectomy, Tubal Ligation Additional Past Surgical History / Comment(s): 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), SINUS BX-NEG, COLONOSCOPY, MICHELLE BREAST BX-NEG, MICHELLE CATARACTS, PT WAS BORN WITH EXTRA THUMB ON RT HAND HAD IT SX REMOVED WHEN SHE WAS AN INFANT.BLADDER SUSPENSION, CARBAJAL NEUROMA REMOVED. oral surgery 06/19/17 for removal of cancer, teeth extraction and some bone removal Past Anesthesia/Blood Transfusion Reactions: Previous Problems w/ Anesthesia Additional Past Anesthesia/Blood Transfusion Reaction / Comm: Hard time coming out of anesthesia after oral cancer surgery (Patient unsure of this previous notation) Past Psychological History: No Psychological Hx Reported Smoking Status: Never smoker Past Alcohol Use History: None Reported Past Drug Use History: None Reported - Past Family History Son(s) Family Medical History: No Reported History Sister(s) Family Medical History: Diabetes Mellitus Brother(s) Family Medical History: No Reported History Mother Family Medical History: Cancer Additional Family Medical History / Comment(s): PANCREATIC CANCER Father Family Medical History: Congestive Heart Failure (CHF) Additional Family Medical History / Comment(s): POLIO Daughter(s) Family Medical History: Cancer Additional Family Medical History / Comment(s): BRAIN Medications and Allergies Home Medications Medication Instructions Recorded Confirmed Type amLODIPine [Norvasc] 5 mg PO DAILY 12/23/14 06/16/21 History Ferrous Sulfate [Iron (65 MG 325 mg PO DAILY 04/17/17 06/16/21 History Elemental)] Aspirin [Adult Low Dose Aspirin EC] 81 mg PO DAILY 09/20/17 06/16/21 History Glucosam/John-Msm1/C/[place]/Bosw 1 tab PO DAILY 09/20/17 06/16/21 History [Glucosamine-Chondroitin Tablet] Juvenon 2 tab PO DAILY 09/20/17 06/16/21 History [place]-3 Fatty Acids/Fish Oil [Fish 1 cap PO BID 09/20/17 06/16/21 History Oil 1,000 mg Softgel] Calcium Carbonate [Calcium] 1,200 mg PO BID 06/06/18 06/16/21 History Multivitamins, Thera [Multivitamin 1 tab PO DAILY 06/06/18 06/16/21 History (formulary)] Fenofibrate Nanocrystallized 145 mg PO DAILY 03/06/20 06/16/21 History [Fenofibrate] Ascorbic Acid [Vitamin C] 500 mg PO DAILY 06/16/21 06/16/21 History Cholecalciferol [Vitamin D3 (25 25 mcg PO DAILY 06/16/21 06/16/21 History Mcg = 1000 Iu)] Rosuvastatin [Crestor] 20 mg PO DAILY 06/16/21 06/16/21 History Ubidecarenone [Co Q-10] 100 mg PO BID 06/16/21 06/16/21 History Allergies Allergy/AdvReac Type Severity Reaction Status Date / Time cefazolin [From Kefzol] Allergy Severe Rash/Hives Verified 06/16/21 18:27 daptomycin Allergy Unknown Verified 06/16/21 18:27 vancomycin Allergy Rash/Hives Verified 06/16/21 18:27 Physical Exam Vitals: Vital Signs Temp Pulse Pulse Resp BP BP Pulse Ox 06/17/21 07:52 98.1 F 62 18 124/67 98 06/17/21 02:00 98.4 F 62 17 137/56 97 06/16/21 21:00 98.1 F 63 18 185/68 100 06/16/21 18:28 67 18 147/63 100 06/16/21 16:55 163/72 06/16/21 16:21 70 18 181/73 100 06/16/21 15:01 97.3 F L 71 18 167/90 100 Intake and Output 06/16/21 06/17/21 06/17/21 22:59 06:59 14:59 Intake Total 225 900 Output Total 1000 Balance 225 -100 Intake: Intake, IV Titration 225 900 Amount Sodium Chloride 0.9% 1, 225 900 000 ml @ 75 mls/hr IV . [id number] STA Rx#:[id number] Output: Urine 1000 Other: Voiding Method Indwelling Catheter Indwelling Catheter Weight 70.307 kg GENERAL: The patient is alert and oriented x3, not in any acute distress. Well d eveloped, well nourished. HEENT: Pupils are round and equally reacting to light. EOMI. No scleral icterus. No conjunctival pallor. Normocephalic, atraumatic. No pharyngeal erythema. No thyromegaly. CARDIOVASCULAR: S1 and S2 present. No murmurs, rubs, or gallops. PULMONARY: Chest is clear to auscultation, no wheezing or crackles. ABDOMEN: Soft, nontender, nondistended, normoactive bowel sounds. No palpable organomegaly. MUSCULOSKELETAL: No joint swelling or deformity. EXTREMITIES: No cyanosis, clubbing, or pedal edema. NEUROLOGICAL: Gross neurological examination did not reveal any focal deficits. SKIN: No rashes. No petechiae Results CBC & Chem 7: 06/16/21 15:30 06/16/21 15:30 Labs: Abnormal Lab Results - Last 24 Hours (Table) 06/16/21 06/16/21 Range/Units 15:30 15:30 WBC 10.7 H (3.8-10.6) k/uL BUN 23 H (7-17) mg/dL Assessment and Plan Assessment: Comminuted acute right femoral fracture Fall without syncope Hyperlipidemia History of her bradycardia History of neuropathy History of Raynaud's History of gout History of hiatal hernia History of oral cancer in 2018 Plan: This is a pleasant 86 years old female who presents with right hip fracture Orthopedic team on the case and the plan for surgical reduction Cardiology team on the case for preop evaluation follow-up echocardiogram Check bladder scan Check urine analysis Labs and medication were reviewed.. Continue same treatment. Continue with symptomatic treatment. Resume home medication. Monitor lytes and vitals. DVT and GI prophylaxis. Further recommendations depends on the clinical course of the patient DVT prophylaxis: Deferred to surgery primary team GI Prophylaxis: Pepcid PT/OT: Pending Prognosis is guarded Thank you for consulting us, we will follow up with you
[2021-06-17] MEDS: amLODIPine 5 MG TAB PO SCH (10:27)
[2021-06-17 10:32] LABS: Appearance,Urine Clear (Clear); Bacteria,Urine Rare /hpf; Bilirubin,Urine Negative (Negative); Blood,Urine Negative (Negative); Color,Urine Yellow; Glucose,Urine (UA) Negative (Negative); Ketones,Urine Negative (Negative); Leukocyte Esterase,Urine Moderate (Negative); Mucus,Urine Rare /hpf; Nitrite,Urine Negative (Negative); Protein,Urine Negative (Negative); RBC,Urine 2 /hpf (0-5); Specific Gravity,Urine 1.019 (1.001-1.035); Squamous Epithelial Cell,Urine <1 /hpf (0-4); Urobilinogen,Urine <2.0 mg/dL (<2.0); WBC,Urine 18 /hpf (0-5)
--- NOTE | 2021-06-17 10:41 | P.HPOR ---
History of Present Illness H&P Date: 06/17/21 Chief Complaint: R hip pain 86 yo female presents with her daughter after fall from standing at home. She lives alone in her apt. She c/o immediate pain and inability to abmulate after the fall due to her right hip. She was brought to ED via EMS. She c/o Rt hip pain. Denies any numbness/tingling. Denies any f/c/sob/cp at this time. States no LOC or BHT with the fall. She states hx of heart issues for which she has a pacer. She states previous surgery she had some cardiac issues and daughter states she has a pace maker. She denies any sx currently related to t his. Review of Systems 14 point ROS completed and as stated in HPI. All other systems reviewed negative. Constitutional: Reports as per HPI Past Medical History Past Medical History: Cancer, GERD/Reflux, Osteoarthritis (OA) Additional Past Medical History / Comment(s): SEE DR PERSAUD H&P, Left foot wound, neuropathy, raynaulds, gout, HIATAL HERNIA, ORAL CANCER 2018 History of Any Multi-Drug Resistant Organisms: MRSA Date of last positivie culture/infection: Unknown Patient states Hx of MRSA. No MRSA at [facility]. MDRO Source:: left foot Past Surgical History: Bladder Surgery, Tonsillectomy, Tubal Ligation Additional Past Surgical History / Comment(s): 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), SINUS BX-NEG, COLONOSCOPY, MICHELLE BREAST BX-NEG, MICHELLE CATARACTS, PT WAS BORN WITH EXTRA THUMB ON RT HAND HAD IT SX REMOVED WHEN SHE WAS AN INFANT.BLADDER SUSPENSION, CARBAJAL NEUROMA REMOVED. oral surgery 06/19/17 for removal of cancer, teeth extraction and some bone removal Past Anesthesia/Blood Transfusion Reactions: Previous Problems w/ Anesthesia Additional Past Anesthesia/Blood Transfusion Reaction / Comment(s): Hard time coming out of anesthesia after oral cancer surgery (Patient unsure of this previous notation) Past Psychological History: No Psychological Hx Reported Smoking Status: Never smoker Past Alcohol Use History: None Reported Past Drug Use History: None Reported - Past Family History Son(s) Family Medical History: No Reported History Sister(s) Family Medical History: Diabetes Mellitus Brother(s) Family Medical History: No Reported History Mother Family Medical History: Cancer Additional Family Medical History / Comment(s): PANCREATIC CANCER Father Family Medical History: Congestive Heart Failure (CHF) Additional Family Medical History / Comment(s): POLIO Daughter(s) Family Medical History: Cancer Additional Family Medical History / Comment(s): BRAIN Medications and Allergies Home Medications Medication Instructions Recorded Confirmed Type amLODIPine [Norvasc] 5 mg PO DAILY 12/23/14 06/16/21 History Ferrous Sulfate [Iron (65 MG 325 mg PO DAILY 04/17/17 06/16/21 History Elemental)] Aspirin [Adult Low Dose Aspirin EC] 81 mg PO DAILY 09/20/17 06/16/21 History Glucosam/John-Msm1/C/[place]/Bosw 1 tab PO DAILY 09/20/17 06/16/21 History [Glucosamine-Chondroitin Tablet] Juvenon 2 tab PO DAILY 09/20/17 06/16/21 History [place]-3 Fatty Acids/Fish Oil [Fish 1 cap PO BID 09/20/17 06/16/21 History Oil 1,000 mg Softgel] Calcium Carbonate [Calcium] 1,200 mg PO BID 06/06/18 06/16/21 History Multivitamins, Thera [Multivitamin 1 tab PO DAILY 06/06/18 06/16/21 History (formulary)] Fenofibrate Nanocrystallized 145 mg PO DAILY 03/06/20 06/16/21 History [Fenofibrate] Ascorbic Acid [Vitamin C] 500 mg PO DAILY 06/16/21 06/16/21 History Cholecalciferol [Vitamin D3 (25 25 mcg PO DAILY 06/16/21 06/16/21 History Mcg = 1000 Iu)] Rosuvastatin [Crestor] 20 mg PO DAILY 06/16/21 06/16/21 History Ubidecarenone [Co Q-10] 100 mg PO BID 06/16/21 06/16/21 History Allergies Allergy/AdvReac Type Severity Reaction Status Date / Time cefazolin [From Kefzol] Allergy Severe Rash/Hives Verified 06/16/21 18:27 daptomycin Allergy Unknown Verified 06/16/21 18:27 vancomycin Allergy Rash/Hives Verified 06/16/21 18:27 Physical Examination Osteopathic Statement: *. No significant issues noted on an osteopathic structural exam other than those noted in the History and Physical/Consult. AOX3 NAD VSS RLE: Pain with log roll Rt hip TTP GT region and hip region No erythema, ecchymosis, no open wounds 5/5 DF/PT/EHL/FHL SILT L2-S1 2/4 DP/PT pulses Compartments soft/compressive BL knees, ankles, Lt hip examined and are FROM w/o pain, no TTP and full strength NV intact. UE b/l all major joints and muscle groups NV intact with good ROM no pain Results AP pelvis and imaging Rt hip shows a right femoral neck and peritrochanteric fracture. The fracture is low neck that seems to extend into the lesser and through the calcar. There is split of the neck into the head of the hip and the superior neck is comminuted. CT is reviewed as well which reiterates this with fracture of the neck and peritroch region. GT appears stable however without disruption, calcar is compromised and lesser troch. There is split up into the head of the femur and the superior neck is highly comminuted. There is no fracture of the traci pelvis visualized or acetabulum. - Labs Labs: Abnormal Lab Results - Last 24 Hours (Table) 06/16/21 06/16/21 Range/Units 15:30 15:30 WBC 10.7 H (3.8-10.6) k/uL BUN 23 H (7-17) mg/dL H & H 06/16/21 Range/Units 15:30 Hgb 12.7 (11.4-16.0) gm/dL Hct 38.9 (34.0-46.0) % Coagulation 06/16/21 Range/Units 15:30 INR 1.0 (<1.2) Result Diagrams: 06/16/21 15:30 06/16/21 15:30 Assessment and Plan Assessment: 1. Right femoral neck and peritroch fracture 2. s/p ffs Plan: Orthopedic Surgery Risk Review Kristina James is a 86 yo female presenting for evaluation of sudden onset Right hip pain, inability to ambulate after Fall from standing. It was my pleasure to have seen and examined Kristina. In our visit today we have had a chance to go over subjective complaints, physical examination findings and treatments including the natural course history without intervention and various interventional options. Her imaging demonstrates Right hip femoral neck and peritroch fracture. On physical exam, Kristina demonstrates pain with motion of Right hip, which is NV intact at this time. I have explained to the patient that this fracture needs stabilization. Based on the patients imaging, physical exam, and the rapid progression and disabling nature of her symptoms, at this time I recommend surgery in the form or a: Right hip hemiarthroplasty with ORIF I discussed the risk and benefits of this procedure at length with Kristina and her daughter who is at bedside. Questions were invited and answered, and the patient wishes to proceed as outlined below. Currently, I am recommendin. Right hip open reduction and internal fixation with hemiarthroplasty 2. Review of surgical risks and benefits as well as an educational packet on the proposed surgical procedure. Risks: All surgical procedures come with inherent risks, including those related to positioning, anesthesia, intraoperative findings, and postoperative complications. It is important to understand that surgery does not come with any guarantee of a successful outcome as complications and adverse events are always possible. The patient was given a handout discussing the surgical procedure and risks associated with the intervention, both of which were discussed with the patient. These risks include but are not limited to the following: - Experiencing same, different or even worse symptoms compared to before surgery. - Requiring further surgery or other forms of treatment presently or at some time in the future . - On an extreme but fortunately relatively rare basis severe complication such as blindness, stroke, heart attack, temporary and/or permanent nerve injury, paralysis, coma, or may occur, sometimes without known explan ation. - Surgical complications may include but are not limited to risk of infection, fluid accumulation in the surgical dissection site, including a seroma or hematoma, that requires additional surgery, wound drainage, bleeding, new numbness or weakness, vision changes/loss, spinal fluid leakage, non-healing and/or infected incision, headaches, difficulty or inability to swallow, hoarseness, hemopneumothorax, pneumothorax, injury to nerves, spinal cord, blood vessels, lymphatics or other vital organs (i.e., bowel injury, injury to the great vessels); heterotopic bone formation; complications related to the hardware such as screws, rods, including misplaced hardware, device failure, hardware fracture/breakage, or hardware loosening; retained surgical instrumentations or devices and the need for further surgery. - Medical risks of the planned surgery include but are not limited to generalized Infections to the whole body or local areas outside of the surgical site (sepsis), heart attack, bleeding, anaphylaxis, meningitis, seizure, epilepsy, hearing loss, burn mckenzie, laceration of the head or other areas of the body, bruising, hypersensitivity of the skin, bladder over distension; allergic reaction; shoulder injury related to positioning; fat, blood and air clots to other areas of the body like heart, lungs, brain; failure of internal organs such as lungs, kidneys, liver and excessive bleeding. If blood transfusions are necessary, note that transfusions may cause intolerance reactions such as anaphylaxis or other complex reactions. Despite best efforts, the results of surgery might not heal in terms of bone, soft tissues such as skin, fascia, ligaments, and joints. [facility] has multiple operating rooms with single and overlapping tr ms running daily. They currently function under the required guidelines as produced by the Senate Finance Committee with regards to the overlapping rooms and will continue to comply with changes to this policy as they occur. The requirements include and are complied with as follows: (1) the critical portions of the overlapping rooms will not occur at the same time, (2) the attending physician will be physically present during the critical portions of the procedure and immediately available during the entire case, and (3) a back-up attending is designated should the primary attending not be immediately available. The patient has had a chance to review all the listed information, has been given print outs detailing this information, and has had all his/her questions answered to their satisfaction. It was my pleasure to have seen and examined Kristina James. In our visit today we have had a chance to go over my understanding of our patient's current condition, the natural course history without intervention and various interventional options. Questions were invited and answered, and the patient wishes to proceed as outlined above. I have seen and examined the patient for 25 minutes and we have spent more than 50% of the time in repeat and detailed couns eling about the patient's condition, its natural course history with out and as much as can be predicted with surgery and re-review of various surgical treatment options. In conclusion,Kristina James and her daughter requested we proceed with the above suggested surgery and are willing to accept risks and limitations of the suggested surgery as nature of the disease process and our best attempts at treatment for the condition. Thank you again for allowing us to be part of your patient's care. Please don't hesitate to contact me if you have any further questions. Signed and authenticated by: Irving Dockery [facility] [address] [place] [address]
[2021-06-17] MEDS: HYDROmorphone 0.5 MG/0.5 ML SYRINGE IVP PRN (11:41)
--- NOTE | 2021-06-17 12:05 | CA ---
Transthoracic Echo Report Name: Kristina James Age: 86 Gender: F : 1935 Exam Date: 06/17/2021 10:08 Exam Location: [place] [facility] Ht (in): 65 Wt (lb): 155 Ordering Physician: Mia Brito Attending/Referring Phys: Store Host Roxana Rivero RDCS Procedure CPT: Indications: pre op clearance Cardiac Hx: Technical Quality: Contrast 1: Total Dose (mL): Contrast 2: Total Dose (mL): MEASUREMENTS (Male / Female) Normal Values 2D ECHO LV Diastolic Diameter PLAX 4.1 cm 4.2 - 5.9 / 3.9 - 5.3 cm LV Systolic Diameter PLAX 2.5 cm IVS Diastolic Thickness 0.8 cm 0.6 - 1.0 / 0.6 - 0.9 cm LVPW Diastolic Thickness 1.2 cm 0.6 - 1.0 / 0.6 - 0.9 cm LV Relative Wall Thickness 0.5 RV Internal Dim ED PLAX 3.0 cm LA Systolic Diameter LX 3.9 cm 3.0 - 4.0 / 2.7 - 3.8 cm LA Volume 76.2 cm 18 - 58 / 22 - 52 cm M-MODE Aortic Root Diameter MM 2.5 cm LA Systolic Diameter MM 4.3 cm LA Ao Ratio MM 1.7 MV E Point Septal Separation 0.2 cm AV Cusp Separation MM 1.5 cm DOPPLER AV Peak Velocity 175.8 cm/s AV Peak Gradient 12.4 mmHg AV Mean Velocity 121.2 cm/s AV Mean Gradient 6.4 mmHg AV Velocity Time Integral 43.6 cm LVOT Peak Velocity 131.9 cm/s LVOT Peak Gradient 7.0 mmHg MV Area PHT 3.2 cm Mitral E Point Velocity 85.1 cm/s Mitral A Point Velocity 101.1 cm/s Mitral E to A Ratio 0.8 MV Deceleration Time 237.5 ms MV E' Velocity 6.3 cm/s Mitral E to MV E' Ratio 13.5 TR Peak Velocity 286.8 cm/s TR Peak Gradient 32.9 mmHg Right Ventricular Systolic Press 36.7 mmHg FINDINGS Left Ventricle Mildly increased posterior wall thickness. Right Ventricle The right ventricle is normal in size and function. Right Atrium The right atrium is normal in size. Left Atrium Mildly increased left atrial diameter. Severely increased left atrial volume. Mildly increased left atrial area. Mitral Valve Structurally normal mitral valve without significant stenosis or prolapse. There is mild mitral regurgitation. Aortic Valve Structurally normal aortic valve without significant sclerosis or stenosis. There is no aortic regurgitation. Tricuspid Valve Structurally normal tricuspid valve without significant stenosis. There is mild Pulmonary artery systolic pressure measuring 36.7mmhg Pulmonic Valve Structurally normal pulmonic valve without significant stenosis. There is no pulmonic regurgitation. Pericardium Normal pericardium without effusion. Aorta Normal aortic root dimension. CONCLUSIONS #1. Left ventricle size and normal with preserved LV function. Mild concentric Atrophy. #2. Left atrial enlargement. #3. Mild pulmonary hypertension. #4. Mild mitral regurgitation. #5. Sclerosed with a trileaflet without any significant stenosis Previewed by: Dr. Billy Sidhu MD (Electronically Signed) Final Date: 17 June 2021 12:04
--- NOTE | 2021-06-17 12:09 | P.CRDCN ---
History of Present Illness History of present illness: HISTORY OF PRESENTING ILLNESS This is a pleasant 86-year-old female past medical history significant for hypertension, dyslipidemia, second-degree AV block, loop recorder implantation 05/2018, carotid atherosclerosis, peripheral artery disease. She follows in the office with Dr. Hebert. We have been asked to see in consultation for pre-op evaluation. Patient presents emergency department after a fall at home while she was putting her groceries away. She states she fell backwards, she did hit her head. She did have right hip pain after the fall. Hip and pelvis x-ray revealed right femoral neck fracture. Orthopedics was consulted. Plan for right hip hemiarthroplasty today with Dr. Velez. Patient seen and examined at bedside, no acute distress. She denies any chest pain, shortness of breath, lightheadedness, dizziness, palpitations, syncope or near syncope. She denies any symptoms of orthopnea or PND. DIAGNOSTICS * EKG reveals sinus rhythm with first-degree AV block, heart rate 71 * Chest xray no acute cardiopulmonary process. Loop recorder present. * Right hip CT report revealed comminuted right proximal femur fracture. Possible tiny avulsion injury from the superior lateral acetabulum and right hip joint foci or air with likely intra-articular extension of the fracture * Laboratory reviewed, WBC 10.7, hemoglobin 12.7, platelets 316, sodium 1:30, potassium 4.4, BUN 23, sCr 0.64. * Current home cardiac medications include amlodipine 5 mg daily, simvastatin 20 mg daily, aspirin 80 mg daily, fenofibrate 145 mg daily * Cardiac catheterization history includes a cardiac cath in 04/2005 revealed mildly calcified coronary arteries, nonobstructive coronary artery disease. * Lexiscan stress test 06/2018 in the office revealed no evidence of reversible ischemia * Echocardiogram in the office 06/2018 revealed EF 55%, mild concentric hypertrophy, mild mitral regurgitation, mild tricuspid regurgitation * Arterial duplex lower extremity 04/2020 in the office revealed revealed moderate to severe disease in the bilateral iliacs * Carotid duplex in the office 12/15/2020 revealed 5079 percent stenosis in the right and left ICA * Loop recorder interrogation in the office 12/2020 with no acute events REVIEW OF SYSTEMS At the time of my exam: CONSTITUTIONAL: Denies fever or chills. CARDIOVASCULAR: Denies chest pain, shortness of breath, orthopnea, PND or palpit ations. RESPIRATORY: Denies cough. GASTROINTESTINAL: Denies abdominal pain, diarrhea, constipation, nausea or vomiting. MUSCULOSKELETAL: Denies myalgias. NEUROLOGIC: Denies numbness, tingling, headacbe or weakness. ENDOCRINE: Denies fatigue, weight change, polydipsia or polyurina. GENITOURINARY: Denies burning, hematuria or urgency with micturation. HEMATOLOGIC: Denies history of anemia or bleeding. PHYSICAL EXAMINATION Blood pressure 124/67, heart 62, afebrile, saturations 90% on room air CONSTITUTIONAL: No apparent distress. HEENT: Head is normocephalic. Pupils are equal, round. Sclerae anicteric. Mucous membranes of the mouth are moist. No JVD. No carotid bruit. CHEST EXAMINATION: Lungs are clear to auscultation. No chest wall tenderness is noted on palpation or with deep breathing. HEART EXAMINATION: Regular rate and rhythm. S1, S2 heard. No murmurs, gallops or rub. ABDOMEN: Soft, nontender. Positive bowel sounds. EXTREMITIES: 2+ peripheral pulses, no lower extremity edema and no calf tenderness. NEUROLOGIC EXAMINATION: Patient is awake, alert and oriented x3. ASSESSMENT Right femur fracture Mechanical Fall History of hypertension Syslipidemia History of second-degree AV block, with loop recorder implantation 05/2018 Carotid atherosclerosis Peripheral artery disease PLAN Echocardiogram obtained and reviewed, patient with normal LV systolic function, mild pulmonary hypertension, mild LVH, mild MR. Patient is at adequate risk for surgery. She has the following risk factors history of arrhythmia, age. Patient is able to perform >4 METs levels of activity and does not have any acute cardiac conditions. Patient is hemodynamically stable. There are no absolute contraindications to undergo surgery at this time. Nurse practitioner note has been reviewed by physician. Signing provider agrees with the documented findings, assessment, and plan of care. 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 No MRSA at [facility]. MDRO Source:: left foot Past Surgical History: Bladder Surgery, Tonsillectomy, Tubal Ligation Additional Past Surgical History / Comment(s): 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), SINUS BX-NEG, COLONOSCOPY, MICHELLE BREAST BX-NEG, MICHELLE CATARACTS, PT WAS BORN WITH EXTRA THUMB ON RT HAND HAD IT SX REMOVED WHEN SHE WAS AN .BLADDER SUSPENSION, CARBAJAL NEUROMA REMOVED. oral surgery 06/19/17 for removal of cancer, teeth extraction and some bone removal Past Anesthesia/Blood Transfusion Reactions: Previous Problems w/ Anesthesia Additional Past Anesthesia/Blood Transfusion Reaction / Comment(s): Hard time coming out of anesthesia after oral cancer surgery (Patient unsure of this pr evious notation) Past Psychological History: No Psychological Hx Reported Smoking Status: Never smoker Past Alcohol Use History: None Reported Past Drug Use History: None Reported - Past Family History Son(s) Family Medical History: No Reported History Sister(s) Family Medical History: Diabetes Mellitus Brother(s) Family Medical History: No Reported History Mother Family Medical History: Cancer Additional Family Medical History / Comment(s): PANCREATIC CANCER Father Family Medical History: Congestive Heart Failure (CHF) Additional Family Medical History / Comment(s): POLIO Daughter(s) Family Medical History: Cancer Additional Family Medical History / Comment(s): BRAIN Medications and Allergies Home Medications Medication Instructions Recorded Confirmed Type amLODIPine [Norvasc] 5 mg PO DAILY 12/23/14 06/16/21 History Ferrous Sulfate [Iron (65 MG 325 mg PO DAILY 04/17/17 06/16/21 History Elemental)] Aspirin [Adult Low Dose Aspirin EC] 81 mg PO DAILY 09/20/17 06/16/21 History Glucosam/John-Msm1/C/[place]/Bosw 1 tab PO DAILY 09/20/17 06/16/21 History [Glucosamine-Chondroitin Tablet] Juvenon 2 tab PO DAILY 09/20/17 06/16/21 History [place]-3 Fatty Acids/Fish Oil [Fish 1 cap PO BID 09/20/17 06/16/21 History Oil 1,000 mg Softgel] Calcium Carbonate [Calcium] 1,200 mg PO BID 06/06/18 06/16/21 History Multivitamins, Thera [Multivitamin 1 tab PO DAILY 06/06/18 06/16/21 History (formulary)] Fenofibrate Nanocrystallized 145 mg PO DAILY 03/06/20 06/16/21 History [Fenofibrate] Ascorbic Acid [Vitamin C] 500 mg PO DAILY 06/16/21 06/16/21 History Cholecalciferol [Vitamin D3 (25 25 mcg PO DAILY 06/16/21 06/16/21 History Mcg = 1000 Iu)] Rosuvastatin [Crestor] 20 mg PO DAILY 06/16/21 06/16/21 History Ubidecarenone [Co Q-10] 100 mg PO BID 06/16/21 06/16/21 History Allergies Allergy/AdvReac Type Severity Reaction Status Date / Time cefazolin [From Kefzol] Allergy Severe Rash/Hives Verified 06/16/21 18:27 daptomycin Allergy Unknown Verified 06/16/21 18:27 vancomycin Allergy Rash/Hives Verified 06/16/21 18:27 Physical Exam Vitals: Vital Signs Temp Pulse Pulse Resp BP BP Pulse Ox 06/17/21 07:52 98.1 F 62 18 124/67 98 06/17/21 02:00 98.4 F 62 17 137/56 97 06/16/21 21:00 98.1 F 63 18 185/68 100 06/16/21 18:28 67 18 147/63 100 06/16/21 16:55 163/72 06/16/21 16:21 70 18 181/73 100 06/16/21 15:01 97.3 F L 71 18 167/90 100 Intake and Output 06/16/21 06/17/21 06/17/21 22:59 06:59 14:59 Intake Total 225 900 Output Total 1000 Balance 225 -100 Intake: Intake, IV Titration 225 900 Amount Sodium Chloride 0.9% 1, 225 900 000 ml @ 75 mls/hr IV . [id number] STA Rx#:[id number] Output: Urine 1000 Other: Voiding Method Indwelling Catheter Indwelling Catheter Weight 70.307 kg Results 06/16/21 15:30 06/16/21 15:30 Cardiac Enzymes 06/16/21 Range/Units 15:30 AST 30 (14-36) U/L Coagulation 06/16/21 Range/Units 15:30 PT 11.2 (9.0-12.0) sec APTT 22.2 (22.0-30.0) sec CBC 06/16/21 Range/Units 15:30 WBC 10.7 H (3.8-10.6) k/uL RBC 4.26 (3.80-5.40) m/uL Hgb 12.7 (11.4-16.0) gm/dL Hct 38.9 (34.0-46.0) % Plt Count 316 (150-450) k/uL Comprehensive Metabolic Panel 06/16/21 Range/Units 15:30 Sodium 138 (137-145) mmol/L Potassium 4.4 (3.5-5.1) mmol/L Chloride 106 (98-107) mmol/L Carbon Dioxide 23 (22-30) mmol/L BUN 23 H (7-17) mg/dL Creatinine 0.64 (0.52-1.04) mg/dL Glucose 93 (74-99) mg/dL Calcium 9.4 (8.4-10.2) mg/dL AST 30 (14-36) U/L ALT 16 (4-34) U/L Alkaline Phosphatase 63 (38-126) U/L Total Protein 7.2 (6.3-8.2) g/dL Albumin 4.0 (3.5-5.0) g/dL Current Medications Generic Name Dose Route Start Last Admin Trade Name Freq PRN Reason Stop Dose Admin Hydromorphone HCl 0.5 mg 06/16/21 16:30 06/16/21 18:40 Hydromorphone 0.5 Mg/0.5 Ml Syringe IVP 0.5 mg Q3HR PRN Administration Moderate Pain Hydromorphone HCl 1 mg 06/16/21 16:30 06/17/21 08:17 Hydromorphone 1 Mg/Ml 1 Ml Syringe IVP 1 mg Q3HR PRN Administration Severe Pain Naloxone HCl 0.2 mg 06/16/21 16:30 Naloxone 0.4 Mg/Ml 1 Ml Vial IV Q2M PRN Opioid Reversal Ondansetron HCl 4 mg 06/16/21 18:27 06/16/21 18:40 Ondansetron 4 Mg/2 Ml Vial IVP 4 mg Q8HR PRN Administration Nausea And Vomiting Intake and Output 06/16/21 06/17/21 06/17/21 22:59 06:59 14:59 Intake Total 225 900 Output Total 1000 Balance 225 -100 Intake: Intake, IV Titration 225 900 Amount Sodium Chloride 0.9% 1, 225 900 000 ml @ 75 mls/hr IV . [id number] STA Rx#:[id number] Output: Urine 1000 Other: Voiding Method Indwelling Catheter Indwelling Catheter Weight 70.307 kg 06/16/21 15:30 06/16/21 15:30
[2021-06-17] MEDS ORDERED: IV FLUID CONTINUATION 1,000 ML IV ONE (13:03)
[2021-06-17] MEDS ORDERED: ONDANSETRON 4 MG/2 ML VIAL IVP ONE (13:24)
[2021-06-17] MEDS ORDERED: TRANEXAMIC ACID IN NACL,ISO-OS 1,000 MG in SALINE 1 100ML.BAG IVPB PRN ×2 (13:27→13:51)
[2021-06-17] MEDS ORDERED: DEXAMETHASONE SOD PHOSPHATE 4 MG/ML 1 ML VIAL IVP ONE (13:33)
[2021-06-17] MEDS ORDERED: diphenhydrAMINE 50 MG/ML 1 ML VIAL IVP PRN (14:04)
[2021-06-17] MEDS ORDERED: fentaNYL (PF) 50 MCG/ML 2 ML AMP ONE (14:11)
[2021-06-17] MEDS ORDERED: ROCURONIUM 10 MG/ML (5 ML VIAL) IV ONE (14:11)
[2021-06-17] MEDS ORDERED: SUCCINYLCHOLINE CHLORIDE 100 MG/5 ML SYR IV ONE (14:11)
[2021-06-17] MEDS ORDERED: LIDOCAINE 2% INJ 20 MG/ML (2 ML VIAL) ONE (14:11)
[2021-06-17] MEDS ORDERED: PROPOFOL 10 MG/ML 20 ML VIAL IV ONE (14:11)
[2021-06-17] MEDS ORDERED: GLYCOPYRROLATE 0.2 MG/ML 2 ML VIAL ONE (14:11)
[2021-06-17] MEDS ORDERED: NEOSTIGMINE 1 MG/ML 10 ML VIAL ONE (14:11)
[2021-06-17] MEDS ORDERED: LACTATED RINGERS 1,000 ML IV ONE (16:14)
[2021-06-17] MEDS ORDERED: HYDROcodone/APAP 5-325MG 1 EACH TAB PO PRN (17:57)
[2021-06-17] MEDS ORDERED: HYDROcodone/APAP 7.5-325MG 1 EACH TAB PO PRN (17:57)
[2021-06-17] MEDS ORDERED: NALOXONE 0.4 MG/ML 1 ML VIAL IV PRN (17:57)
[2021-06-17] MEDS ORDERED: MAGNESIUM HYDROXIDE 2,400 MG/10 ML CUP PO PRN (17:57)
--- NOTE | 2021-06-17 19:07 | XR ---
PROCEDURE: XR Hip Limited RT FLUOROSCOPY RIGHT HIP REPLACEMENT- 8V DATE AND TIME: 06/17/2021 5:15 PM CLINICAL INDICATION: INTRAOP; RIGHT HIP REPLACEMENT. TECHNIQUE: Standard protocol, 8 views were obtained. Gate Agent: Dr. Velez Dose: 4.1 mGy COMPARISON: CT and X-ray examinations 06/16/2021 FINDINGS: Fluoroscopy was provided for the procedure. 8 digital images were stored on PACS, taken immediately p rior to and following right hip replacement. For details, please refer to the intraprocedural clinica l note. IMPRESSION: XR Hip Limited RT FLUOROSCOPY RIGHT HIP REPLACEMENT
--- NOTE | 2021-06-17 19:29 | P.OP ---
Date of Procedure: 06/17/21 Preoperative Diagnosis: 1. Right hip femoral neck and peritrochanteric fracture 2. s/p ffs Postoperative Diagnosis: 1. Right hip femoral neck and peritrochanteric fracture 2. s/p ffs Procedure(s) Performed: 1. Right hip hemiarthropasty 2. Open reduction internal fixation Right greater trochanter Implants: Hopper and nephew Redapt 17 femur stem Standard neck 45 bipolar head -3 length Accord 3 wire trochanter plate Anesthesia: GETA Surgeon: Irving Velez Nurse [facility]1: Alf Contreras (Was present and assisted with positioning, opening, dissection, trialing, implantation, ORIF, closure, dressing and moving pt) Estimated Blood Loss (ml): 200 IV fluids (ml): 1,500 Urine output (ml): 250 Pathology: none sent Condition: stable Disposition: PACU Indications for Procedure: 86 yo female presented to ED after ffs at home she was unable to ambulate after and was found to have a right hip fracture. Further evaluation showed this hip fracture to be a femoral neck and peritrochanter fracture with high comminution. She is active and normally takes care of herself. She and her daughter both agree that surgery is the best option for her to recover he independence. Her medical and surgical history were reviewed. She was seen and cleared by medicine and cardio prior to surgical intervention. We discussed all options at length with her and her daughter and they were willing to proceed. Description of Procedure: The patient was seen and examined in the preoperative area. All preoperative protocols were followed. Informed consent was obtained risks and benefits of the procedure were discussed at length. Risks including bleeding infection damage to the surrounding tissue and risk of reoperation were discussed with the patient. Risk of anesthesia up to and including was a discussed with the patient. These are outlined in the risk reviewed. They were willing to accept these risks and all of the risks of surgery. The patient was given a weight- based dose of antibiotics in the form of 2 g ceftriaxone. The patient was seen and evaluated by the anesthesia team who deemed them fit for surgery. The site was marked, the patient was willing to proceed with the procedure. The patient was transferred to the operative suite by the Department of anesthesia. There were then drifted off to sleep by the department of anesthe mac and GETA anesthesia was used. Once adequate anesthesia had been obtained the patient was carefully transferred to the operative bed. All bony prominences were padded accordingly. SCDs were placed on the nonoperative lower extremities. Arms were well padded. Patient was then transferred to the operative table and placed in the left lateral decubitus position with a beanbag. Axillary roll was placed. Arms were placed well padded on arm board as well as with pillows in between. The beanbag was secured and she was secured to the table tape and a safety strap. All bony processes were padded accordingly including her nonoperative leg with eggcrate foam. Her right lower extremity was exposed and 10:15 drapes were placed around it. Preoperative briefing was done with the operative team and everyone was ready for the procedure to start. The patients right leg was then prepped and draped in the normal sterile fashion. Timeout was then performed and all parties in agreement with the procedure to be performed. Skin incision was made over the lateral aspect patient's right hip and a standard posterior approach. This was extended distally in order to evaluate for distal fracture as well as to secure distally. Dissection was taken down to the tensor fascia which was identified and cleaned with a Lyons. This was then incised in line with its fibers. Once it was incised and the Charnley retractor was then placed. The vastus lateralis was identified as well as its insertion which was protected. Sub-vastus exposure was performed in order to gain access to the proximal femur just distal to the lesser trochanter. Once this was accessed A wire passer was passed next to bone all the way around just distal to the lesser trochanter and a wire was placed this was then tensioned and secured and final tightened. We then passed a second wire and tensioned and final tightened it. Fluoroscopy was used to target these wires to specific location. We then proceeded with posterior exposure performing a standard posterior approach to the hip dissection was taken down short external rotators were identified and incised the piriformis was identified and tagged and incised and an L-shaped capsulotomy was performed. There is high amount of comminution in this area with multiple bony neck fragments that were free-floating and devitalize which were removed with rongeur. The calcar was essentially nonexistent and the lesser trochanter was displaced. The greater trochanter was also fractured however was minimally and nondisplaced essentially. Once the neck fragments had been cleaned the femoral head was removed using a corkscrew. This was removed easily and measured we then trialed for a 45 mm bipolar head which had good fit. We then turned our attention to the femoral prep the leg was internally rotated and abducted carefully. Retractors were placed and femoral elevator placed. We then used box osteotome to remove the remainder of the superior shoulder. This allowed us lateralization and access to the canal. Canal finder was used followed by sequential reamers which were first done by hand and then by power. The reamers were placed carefully making sure to lateralize proximally. We reamed up to a 17 size which had good chatter and eventually good bite. We were then able to trial off of this reamer we placed the proximal end and locked it in position and set our version followed by a standard neck and trialed our bipolar head we first trialed a standard head but this was too long and so we went to a minus head which fit well. Once reduced we checked leg lengths and they were restored. The hip was taken through a range of motion and it was stable through all ranges of motion. We carefully and atraumatically dislocated the hip. We then marked our version with a Bovie on bone and removed the broach and implant trial we then copiously irrigated the wound and the femoral canal with normal sterile saline. The final components were selected these were then impacted into position. Once in good position we placed the bipolar head and impacted into place tested and was stable. We then reduced the hip taken through a range of motion and it was stable. We then turned our attention to the greater trochanter a 3 wire greater trochanter plate was selected and was placed and provisionally secured. X-rays were taken and confirmed to be in good position. These x-rays also confirmed our implant to be in good position and well fitting. We then passed wires for this plate we then tensioned the wires appropriately reducing the fracture and then locked the wires in a tensed position and reduced position. The wires were then cut to size. We once again copiously irrigated the wound we then performed a posterior capsular closure and repair along with piriformis repair with #1 Ethibond. Hip was then taken through a range of motion and this repair was stable with the fracture. Final images were then taken showing good placement of components and reduction of fracture. We then performed layer closure first and the tensor fascia which was closed with #1 Vicryl followed by a running unidirectional strata fix suture were then placed 0 PDS in the deep subcu tissue with 2-0 PDS and superficial subcu tissue and elizabeth in the skin. The wound edges approximated very well and there are no complications. The wound was then cleaned and sterilely with an operative foam dressing. The patient was then transferred back to their hospital bed and placed into a hip abduction pillow. There were awakened by department of anesthesia having tolerated the procedure very well with no complications. The patient was then transported to the postoperative care unit in stable condition.
[2021-06-17] MEDS ORDERED: SENNOSIDES-DOCUSATE SODIUM 1 EACH TAB PO SCH (21:00)
[2021-06-17] MEDS: FAMOTIDINE 20 MG/2 ML VIAL IV SCH (21:28)
[2021-06-17] MEDS: SENNOSIDES-DOCUSATE SODIUM 1 EACH TAB PO SCH (21:28)
[2021-06-17] MEDS: HYDROcodone/APAP 7.5-325MG 1 EACH TAB PO PRN (22:25)
[2021-06-18] MEDS: HYDROmorphone 1 MG/ML 1 ML SYRINGE IVP PRN ×4 (00:52→09:18)
[2021-06-18] MEDS: SODIUM CHLORIDE 0.9% 1,000 ML IV SCH ×3 (03:18→14:00)
[2021-06-18] MEDS: FAMOTIDINE 20 MG/2 ML VIAL IV SCH (07:26)
[2021-06-18] MEDS: FENOFIBRATE 160 MG TAB PO SCH (07:44)
[2021-06-18] MEDS: ATORVASTATIN 40 MG TAB PO SCH (07:44)
[2021-06-18] MEDS: amLODIPine 5 MG TAB PO SCH (07:45)
[2021-06-18] MEDS: ENOXAPARIN 30 MG/0.3 ML SYRINGE SQ SCH (07:45)
[2021-06-18 09:13] LABS: Basophils # (A) 0.02 X 10*3/uL (0.00-0.10); Basophils % (A) 0.2 %; Eosinophils # (A) 0.01 X 10*3/uL (0.04-0.35); Eosinophils % (A) 0.1 %; HCT 30.3 % (37.2-46.3); HGB 9.5 g/dL (12.0-15.0); Immature Grans, Automated 0.4 %; Lymphocytes # (A) 1.03 X 10*3/uL (0.90-5.00); Lymphocytes % (A) 9.1 %; MCH 29.1 pg (27.0-32.0); MCHC 31.4 g/dL (32.0-37.0); MCV 92.7 fL (80.0-97.0); Mean Platelet Volume 10.3 fL (9.5-12.2); Monocytes # (A) 0.97 X 10*3/uL (0.20-1.00); Monocytes % (A) 8.6 %; NRBC Per 100 WBC 0 /100 WBCS (0.0-0.0); Neutrophils # (A) 9.26 X 10*3/uL (1.80-7.70); Neutrophils % (A) 81.6 %; Platelet Count 252 X 10*3/uL (140-440); RBC 3.27 X 10*6/uL (4.10-5.20); RDW 13.4 % (11.5-14.5); WBC 11.33 X 10*3/uL (4.50-10.00)
[2021-06-18] MEDS: FAMOTIDINE 20 MG TAB PO SCH ×2 (09:18→20:25)
--- NOTE | 2021-06-18 09:45 | FL ---
Fluoroscopy INDICATION: Pain FINDINGS: Fluoroscopy time: 25 seconds. Images obtained: 8. IMPRESSIONS: 1. Documentation of fluoroscopy.
--- NOTE | 2021-06-18 10:15 | P.PN ---
Subjective This is a pleasant 86-year-old female past medical history significant for hypertension, dyslipidemia, second-degree AV block, loop recorder implantation 05/2018, carotid atherosclerosis, peripheral artery disease. She follows in the office with Dr. Hebert. We have been asked to see in consultation for pre-op evaluation. Patient presents emergency department after a fall at home while she was putting her groceries away. She states she fell backwards, she did hit her head. She did have right hip pain after the fall. Hip and pelvis x-ray revealed right femoral neck fracture. Orthopedics was consulted. Plan for right hip hemiarthroplasty today with Dr. Velez. Echocardiogram obtained and reviewed, patient with normal LV systolic function, mild pulmonary hypertension, mild LVH, mild MR. 06/18/2021 Patient seen and examined at bedside, no acute distress. She is post op day #1 open reduction internal fixation right hip. She denies any chest pain, shortness of breath, lightheadedness, dizziness, palpitations, syncope or near syncope. She denies any symptoms of orthopnea or PND. Pain is controlled. No acute events overnight. PHYSICAL EXAMINATION Blood pressure 123/57, heart 71, afebrile, oxygen saturations 100% on 1.5L nasal cannula CONSTITUTIONAL: No apparent distress. HEENT: Neck Supple. No JVD. CHEST EXAMINATION: Lungs are clear to auscultation. No chest wall tenderness is noted on palpation or with deep breathing. HEART EXAMINATION: Regular rate and rhythm. S1, S2 heard. No murmurs, gallops or rub. ABDOMEN: Soft, nontender. Positive bowel sounds. EXTREMITIES: 2+ peripheral pulses, no lower extremity edema and no calf tenderness. NEUROLOGIC EXAMINATION: Patient is awake, alert and oriented x3. ASSESSMENT Right femur fracture s/p open reduction internal fixation right hip 06/18/21 Mechanical Fall History of hypertension Syslipidemia History of second-degree AV block, with loop recorder implantation 05/2018 Carotid atherosclerosis Peripheral artery disease PLAN Patient is stable from a cardiology perspective. Continue home cardiac medications. Patient to follow up outpatient with Dr. Hebert. Nurse practitioner note has been reviewed by physician. Signing provider agrees with the documented findings, assessment, and plan of care. Objective - Vital Signs Vital signs: Vital Signs Temp 97.4 F L 06/18/21 08:00 Pulse 71 06/18/21 08:00 Resp 18 06/18/21 08:00 BP 123/57 06/18/21 08:00 Pulse Ox 100 06/18/21 08:00 Intake & Output 06/17/21 06/18/21 06/18/21 18:59 06:59 18:59 Intake Total 1450 Output Total 1000 1100 Balance 450 -1100 Intake: IV 1450 Output: Urine 800 1100 Estimated Blood Loss 200 Other: Voiding Method Indwelling Catheter Indwelling Catheter Indwelling Catheter - Labs CBC & Chem 7: 06/18/21 06:00 06/16/21 15:30 Labs: Abnormal Lab Results - Last 24 Hours (Table) 06/17/21 06/18/21 Range/Units 09:56 06:00 WBC 11.33 H (4.50-10.00) X 10*3/uL RBC 3.27 L (4.10-5.20) X 10*6/uL Hgb 9.5 L (12.0-15.0) g/dL Hct 30.3 L (37.2-46.3) % MCHC 31.4 L (32.0-37.0) g/dL Neutrophils # 9.26 H (1.80-7.70) X 10*3/uL Eosinophils # 0.01 L (0.04-0.35) X 10*3/uL Ur Leukocyte Esterase Moderate H (Negative) Urine WBC 18 H (0-5) /hpf Urine Bacteria Rare H (None) /hpf Urine Mucus Rare H (None) /hpf Microbiology - Last 24 Hours (Table) 06/17/21 09:56 Urine Culture - Preliminary Urine,Clean Catch
[2021-06-18] MEDS ORDERED: ALPRAZolam 0.25 MG TAB PO STA (13:16)
[2021-06-18] MEDS ORDERED: HYDROmorphone 0.5 MG/0.5 ML SYRINGE IVP STA (13:16)
--- NOTE | 2021-06-18 14:19 | P.PN ---
Subjective Progress Note Date: 06/18/21 Principal diagnosis: 1. Right hip femoral neck and peritrochanteric fracture s/p fall Patient was seen at bedside this afternoon resting comfortably lying in the semirecumbent position. Patient says she is having a lot of pain over incision on the right hip. Patient says she did get up with physical therapy this morning to try and sit in the chair but she said she was in an extreme amount of pain the entire time while she got up. Patient says she has not had bowel movement since surgery. Patient says she has had something to eat since surgery. Patient denies chest pain, fever, shortness of breath, nausea, vomiting, change in vision, loss of bowel/bladder control. Objective - Vital Signs Vital signs: Vital Signs Temp 97.4 F L 06/18/21 08:00 Pulse 71 06/18/21 08:00 Resp 18 06/18/21 08:00 BP 123/57 06/18/21 08:00 Pulse Ox 100 06/18/21 08:00 Intake & Output 06/17/21 06/18/21 06/18/21 18:59 06:59 18:59 Intake Total 1450 Output Total 1000 1100 Balance 450 -1100 Intake: IV 1450 Output: Urine 800 1100 Estimated Blood Loss 200 Other: Voiding Method Indwelling Catheter Indwelling Catheter Indwelling Catheter - Exam Inspection: Opti-foam dressings present on right lateral upper leg. [place] are well aligned and in good place. There is some minimal serosanguineous drainage. Some ecchymosis present along the right upper leg. Sensation: Sensation is equal, symmetric, bilaterally intact throughout. Palpation: There is moderate tenderness to palpation diffusely throughout the Right hip especially in lateral region. Nontender to palpation throughout rest of exam. Negative Homans bilaterally Range of motion: Patient is able to flex and extend digits in right foot and plantar/dorsiflex right ankle. Right hip/knee ROM limited due to pain. Patient has full range of motion in bilateral UE and LLE Motor: Left leg - 4+/5 in resisted hip flexion/extension, knee flexion/extension, plantar flexion/dorsiflexion the left ankle; 4+/5 in resisted elbow flexion/extension, wrist flexion/extension, shoulder abduction, internal/external rotation of the bilateral UE. Patient is able to dorsi and plantarflex right ankle. Right hip/knee motor exams limited due to patient's pain. Cash Management Coordinator strength 4+/5 in bilateral UE Neurovascular: Refill under 3 seconds bilaterally in upper extremity digits. DP pulses intact, bilaterally, 2+. - Labs CBC & Chem 7: 06/18/21 06:00 06/16/21 15:30 Labs: Abnormal Lab Results - Last 24 Hours (Table) 06/18/21 Range/Units 06:00 WBC 11.33 H (4.50-10.00) X 10*3/uL RBC 3.27 L (4.10-5.20) X 10*6/uL Hgb 9.5 L (12.0-15.0) g/dL Hct 30.3 L (37.2-46.3) % MCHC 31.4 L (32.0-37.0) g/dL Neutrophils # 9.26 H (1.80-7.70) X 10*3/uL Eosinophils # 0.01 L (0.04-0.35) X 10*3/uL Microbiology - Last 24 Hours (Table) 06/17/21 09:56 Urine Culture - Preliminary Urine,Clean Catch Assessment and Plan Assessment: 1. Right hip femoral neck and peritrochanteric fracture 2. s/p ffs Postop day 1 status post right hip hemiarthroplasty and open reduction internal fixation right greater trochanter Plan: 1. Right hip femoral neck and peritrochanteric fracture - surgery performed yesterday, , 06/17/2021 - right hip hemiarthroplasty and open reduction internal fixation right greater trochanter. Patient stable at bedside this morning. Awaiting postoperative x-rays of the right hip. Plan for discharge to [facility] for RAMON likely on 06/21/2021. We'll continue to follow patient while in hospital 2. Appreciate medical management 3. Pain management - [place]; Dilaudid only if necessary 4. DVT prophylaxis - Lovenox 5. GI prophylaxis - Pepcid; senna 6. Encourage incentive spirometer use 7. PT/OT - 50% weightbearing right lower extremity. Weightbearing as tolerated left lower extremity with walker and assistance 8. Discharge planning - plan for discharge to [facility] for RAMON likely on 06/21/2021 Time with Patient: Less than 30
[2021-06-18] MEDS: HYDROmorphone 0.5 MG/0.5 ML SYRINGE IVP PRN (17:01)
--- NOTE | 2021-06-18 17:09 | P.PN ---
Subjective Covering Dr. Lozada This is a pleasant 86 years old female with past medical history of GERD/Reflux, Osteoarthritis, hyperlipidemia, history of her bradycardia and follow-up with automotive hardware engineer Dr. Gibson, history of neuropathy, raynaulds, gout, HIATAL HERNIA, ORAL CANCER 2018 She presents because of fall and hip fracture. She was doing the grocery with family yesterday when she tripped and fell. Patient denies dizziness or syncope. Patient denies chest pain or dyspnea. No breathing difficulties or coughing. No change in urine or bowel habits. No dysuria or urgency. No fever. She denies smoking, alcohol or illicit drugs. Vitals are stable. Not shown only mild leukocytosis of 10.7, rest of CBC, INR, BMP and liver enzymes and electrolytes are unremarkable. CT scan of the right hip: Comminuted right proximal femoral fracture 06/18/2021 Patient status post open reduction and internal fixation for her comminuted right hip fracture after fall. Postoperatively she is lying in bed fully awake and oriented, more common than yesterday but, she still complaining of from pain in her surgery site, also she looks anxious. She asked for more pain medication which is provided. Hemodynamically stable WBC is 11.3 most likely reactive secondary to her surgery. Urine culture came back negative, the suspicion of UTI is very low therefore we stopped her ceftriaxone from tomorrow. Hemoglobin stable at 9.5. She still on IV hydration, which we will order to D5 normal saline as she has low appetite today. Objective - Vital Signs Vital signs: Vital Signs Temp 98.0 F 06/18/21 14:00 Pulse 69 06/18/21 14:00 Resp 16 06/18/21 14:00 BP 124/64 06/18/21 14:00 Pulse Ox 96 06/18/21 14:00 Intake & Output 06/17/21 06/18/21 06/18/21 18:59 06:59 18:59 Intake Total 1450 Output Total 1000 1100 Balance 450 -1100 Intake: IV 1450 Output: Urine 800 1100 Estimated Blood Loss 200 Other: Voiding Method Indwelling Catheter Indwelling Catheter Indwelling Catheter - Exam GENERAL: The patient is alert and oriented x3, not in any acute distress. Well developed, well nourished. HEENT: Pupils are round and equally reacting to light. EOMI. No scleral icterus. No conjunctival pallor. Normocephalic, atraumatic. No pharyngeal erythema. No thyromegaly. CARDIOVASCULAR: S1 and S2 present. No murmurs, rubs, or gallops. PULMONARY: Chest is clear to auscultation, no wheezing or crackles. ABDOMEN: Soft, nontender, nondistended, normoactive bowel sounds. No palpable organomegaly. MUSCULOSKELETAL: No joint swelling or deformity. -EXTREMITIES: No cyanosis, clubbing, or pedal edema. Right hip surgical wound with dressing in a Place. Rest of exam is deferred to surgery team NEUROLOGICAL: Gross neurological examination did not reveal any focal deficits. SKIN: No rashes. No petechiae - Labs CBC & Chem 7: 06/18/21 06:00 06/16/21 15:30 Labs: Abnormal Lab Results - Last 24 Hours (Table) 06/18/21 Range/Units 06:00 WBC 11.33 H (4.50-10.00) X 10*3/uL RBC 3.27 L (4.10-5.20) X 10*6/uL Hgb 9.5 L (12.0-15.0) g/dL Hct 30.3 L (37.2-46.3) % MCHC 31.4 L (32.0-37.0) g/dL Neutrophils # 9.26 H (1.80-7.70) X 10*3/uL Eosinophils # 0.01 L (0.04-0.35) X 10*3/uL Microbiology - Last 24 Hours (Table) 06/17/21 09:56 Urine Culture - Final Urine,Clean Catch Assessment and Plan Assessment: Comminuted acute right femoral fracture. Status post open reduction and grad intern al fixation Fall without syncope Hyperlipidemia Asymptomatic bacteriuria rather than History of her bradycardia History of neuropathy History of Raynaud's History of gout History of hiatal hernia History of oral cancer in 2018 Plan: This is a pleasant 86 years old female who presents with right hip fracture Continue with pain medication per orthopedic team Cardiology team on the case for preop evaluation . Discontinue antibiotic Change fluids to D5 normal saline at 75 to per hour Start incentive spirometry Labs and medication were reviewed.. Continue same treatment. Continue with symptomatic treatment. Resume home medication. Monitor lytes and vitals. DVT and GI prophylaxis. Further recommendations depends on the clinical course of the patient DVT prophylaxis: Deferred to surgery primary team GI Prophylaxis: Pepcid PT/OT: Pending Prognosis is guarded Thank you for consulting us, we will follow up with you
[2021-06-18] MEDS: DEXTROSE 5%-0.9% NACL 1,000 ML IV SCH (17:23)
--- NOTE | 2021-06-18 17:41 | XR ---
EXAMINATION TYPE: XR Hip RT and AP Pelvis DATE OF EXAM: 06/18/2021 5:33 PM INDICATION: Patient age:Female; 86 years old; Reason for study: s/p traci/ORIF; COMPARISON: None. TECHNIQUE: The right hip was examined in the frontal and lateral projections and a AP pelvis. FINDINGS: Status post right hip repair with hardware in place. There is improved anatomic alignment. The lesser trochanter of the right femur is more displaced on today's exam. Postsurgical changes with lucencies within the joint likely representing gas and skin elizabeth. Hardware is intact. No new acut e fractures. IMPRESSION: Status post right hip open reduction internal fixation. Hardware is intact. No new fractures.
[2021-06-18] MEDS: HYDROcodone/APAP 5-325MG 1 EACH TAB PO PRN (20:25)
[2021-06-18] MEDS: SENNOSIDES-DOCUSATE SODIUM 1 EACH TAB PO SCH (20:25)
[2021-06-19] MEDS: HYDROmorphone 0.5 MG/0.5 ML SYRINGE IVP PRN ×2 (02:46→10:37)
[2021-06-19] MEDS: FAMOTIDINE 20 MG TAB PO SCH ×2 (08:23→21:26)
[2021-06-19] MEDS: ATORVASTATIN 40 MG TAB PO SCH (08:23)
[2021-06-19] MEDS: amLODIPine 5 MG TAB PO SCH (08:23)
[2021-06-19] MEDS: DEXTROSE 5%-0.9% NACL 1,000 ML IV SCH ×2 (08:23→21:26)
[2021-06-19] MEDS: FENOFIBRATE 160 MG TAB PO SCH (08:23)
[2021-06-19] MEDS: ENOXAPARIN 30 MG/0.3 ML SYRINGE SQ SCH (08:23)
[2021-06-19] MEDS: HYDROcodone/APAP 7.5-325MG 1 EACH TAB PO PRN ×2 (08:28→18:14)
--- NOTE | 2021-06-19 08:48 | P.PN ---
Subjective Progress Note Date: 06/19/21 Principal diagnosis: Right hip femoral neck and peritrochanteric fracture s/p fall Patient was seen at bedside this afternoon resting comfortably lying in the semirecumbent position. Patient says she is having a lot of pain over incision on the right hip. Patient says she did get up with physical therapy yesterday and did sit in chair but she said she was in an extreme amount of pain the entire time while she got up. Patient says she has not had bowel movement since surgery. Patient says she has had something to eat since surgery. Patient denies chest pain, fever, shortness of breath, nausea, vomiting, change in vision, loss of bowel/bladder control. Objective - Vital Signs Vital signs: Vital Signs Temp 99.5 F 06/19/21 08:00 Pulse 70 06/19/21 08:00 Resp 14 06/19/21 08:00 BP 151/68 06/19/21 08:00 Pulse Ox 100 06/19/21 08:00 Intake & Output 06/18/21 06/19/21 06/19/21 18:59 06:59 18:59 Intake Total 780 Output Total 600 941 Balance 180 -941 Intake: Oral 780 Output: Urine 600 325 Uretheral (Foster) 325 Post Void Residual 616 Other: Voiding Method Indwelling Catheter Diaper - Exam Inspection: Opti-foam dressings present on right lateral upper leg. [place] are well aligned and in good place. There is some minimal serosanguineous drainage. Some ecchymosis present along the right upper leg. Sensation: Sensation is equal, symmetric, bilaterally intact throughout. Palpation: There is moderate tenderness to palpation diffusely throughout the Right hip especially in lateral region. Nontender to palpation throughout rest of exam. Negative Homans bilaterally Range of motion: Patient is able to flex and extend digits in right foot and plantar/dorsiflex right ankle. Right hip/knee ROM limited due to pain. Patient has full range of motion in bilateral UE and LLE Motor: Left leg - 4+/5 in resisted hip flexion/extension, knee flexion/extension, plantar flexion/dorsiflexion the left ankle; 4+/5 in resisted elbow flexion/extension, wrist flexion/extension, shoulder abduction, internal/external rotation of the bilateral UE. Patient is able to dorsi and plantarflex right ankle. Right hip/knee motor exams limited due to patient's pain. Epoxy Specialist strength 4+/5 in bilateral UE Neurovascular: Refill under 3 seconds bilaterally in upper extremity digits. DP pulses intact, bilaterally, 2+. - Labs CBC & Chem 7: 06/18/21 06:00 06/16/21 15:30 Labs: Abnormal Lab Results - Last 24 Hours (Table) 06/18/21 Range/Units 06:00 WBC 11.33 H (4.50-10.00) X 10*3/uL RBC 3.27 L (4.10-5.20) X 10*6/uL Hgb 9.5 L (12.0-15.0) g/dL Hct 30.3 L (37.2-46.3) % MCHC 31.4 L (32.0-37.0) g/dL Neutrophils # 9.26 H (1.80-7.70) X 10*3/uL Eosinophils # 0.01 L (0.04-0.35) X 10*3/uL Microbiology - Last 24 Hours (Table) 06/17/21 09:56 Urine Culture - Final Urine,Clean Catch Assessment and Plan Assessment: 1. Right hip femoral neck and peritrochanteric fracture 2. s/p ffs Postop day 2 status post right hip hemiarthroplasty and open reduction internal fixation right greater trochanter Plan: 1. Right hip femoral neck and peritrochanteric fracture - surgery performed yes , , 06/17/2021 - right hip hemiarthroplasty and open reduction internal fixation right greater trochanter. Patient stable at bedside this morning. X-rays of the right hip performed yesterday do demonstrate right hip hemiarthroplasty in stable position with cables and plate. Plan for discharge to [facility] for RAMON likely on 06/21/2021. We'll continue to follow patient while in hospital 2. Appreciate medical management 3. Pain management - [place]; Dilaudid only if necessary 4. DVT prophylaxis - Lovenox 5. GI prophylaxis - Pepcid; senna 6. Encourage incentive spirometer use 7. PT/OT - 50% weightbearing right lower extremity. Weightbearing as tolerated left lower extremity with walker and assistance 8. Discharge planning - plan for discharge to [facility] for RAMON likely on 06/21/2021 Time with Patient: Less than 30
[2021-06-19 09:18] LABS: African American GFR (CKD) 100.9 (60.0-200.0); Anion Gap 6.8 mmol/L (10.00-18.00); Carbon Dioxide 23.2 mmol/L (20.0-27.5); Magnesium 2.1 mg/dL (1.5-2.4); Potassium 3.8 mmol/L (3.5-5.5)
[2021-06-19] MEDS: SENNOSIDES-DOCUSATE SODIUM 1 EACH TAB PO SCH (21:26)
[2021-06-19 23:00] LABS: Basophils # (A) 0.04 X 10*3/uL (0.00-0.10); Basophils % (A) 0.4 %; Eosinophils # (A) 0.11 X 10*3/uL (0.04-0.35); Eosinophils % (A) 1.1 %; HCT 27.1 % (37.2-46.3); HGB 8.6 g/dL (12.0-15.0); Immature Grans, Automated 0.4 %; Lymphocytes # (A) 1.22 X 10*3/uL (0.90-5.00); Lymphocytes % (A) 12.2 %; MCH 29.5 pg (27.0-32.0); MCHC 31.7 g/dL (32.0-37.0); MCV 92.8 fL (80.0-97.0); Mean Platelet Volume 10.7 fL (9.5-12.2); Monocytes # (A) 0.82 X 10*3/uL (0.20-1.00); Monocytes % (A) 8.2 %; NRBC Per 100 WBC 0 /100 WBCS (0.0-0.0); Neutrophils # (A) 7.77 X 10*3/uL (1.80-7.70); Neutrophils % (A) 77.7 %; Platelet Count 228 X 10*3/uL (140-440); RBC 2.92 X 10*6/uL (4.10-5.20); RDW 13.2 % (11.5-14.5)
[2021-06-20] MEDS: HYDROcodone/APAP 5-325MG 1 EACH TAB PO PRN (00:09)
[2021-06-20] MEDS: HYDROcodone/APAP 7.5-325MG 1 EACH TAB PO PRN ×3 (06:46→20:04)
[2021-06-20] MEDS: ATORVASTATIN 40 MG TAB PO SCH (08:20)
[2021-06-20] MEDS: FAMOTIDINE 20 MG TAB PO SCH ×2 (08:20→20:04)
[2021-06-20] MEDS: FENOFIBRATE 160 MG TAB PO SCH (08:21)
[2021-06-20] MEDS: ENOXAPARIN 30 MG/0.3 ML SYRINGE SQ SCH (08:21)
[2021-06-20] MEDS: amLODIPine 5 MG TAB PO SCH (08:21)
[2021-06-20] MEDS: DEXTROSE 5%-0.9% NACL 1,000 ML IV SCH (08:21)
--- NOTE | 2021-06-20 09:05 | P.PN ---
Subjective Progress Note Date: 06/20/21 Principal diagnosis: Right hip femoral neck and peritrochanteric fracture s/p fall Patient was seen at bedside this morning resting comfortably lying in the semirecumbent position. Patient says she is having a lot of pain over incision on the right hip. Patient says she did get up with physical therapy Monday and did sit in chair but she said she was in an extreme amount of pain the entire time while she got up. Patient says she has not had bowel movement since surgery. Patient says she has had something to eat since surgery. Patient denies chest pain, fever, shortness of breath, nausea, vomiting, change in vision, loss of bowel/bladder control. Objective - Vital Signs Vital signs: Vital Signs Temp 98.8 F 06/20/21 01:21 Pulse 66 06/20/21 01:21 Resp 19 06/20/21 01:21 BP 135/57 06/20/21 01:21 Pulse Ox 97 06/20/21 01:21 Intake & Output 06/19/21 06/20/21 06/20/21 18:59 06:59 18:59 Other: Voiding Method Diaper Diaper External Catheter # Voids 1 4 # Bowel Movements 0 - Exam Inspection: Opti-foam dressings present on right lateral upper leg. [place] are well aligned and in good place. There is some minimal serosanguineous drainage. Some ecchymosis present along the right upper leg. Sensation: Sensation is equal, symmetric, bilaterally intact throughout. Palpation: There is moderate tenderness to palpation diffusely throughout the Right hip especially in lateral region. Nontender to palpation throughout rest of exam. Negative Homans bilaterally Range of motion: Patient is able to flex and extend digits in right foot and plantar/dorsiflex right ankle. Right hip/knee ROM limited due to pain. Patient has full range of motion in bilateral UE and LLE Motor: Left leg - 4+/5 in resisted hip flexion/extension, knee flexion/extension, plantar flexion/dorsiflexion the left ankle; 4+/5 in resisted elbow flexion/extension, wrist flexion/extension, shoulder abduction, internal/external rotation of the bilateral UE. Patient is able to dorsi and plantarflex right ankle. Right hip/knee motor exams limited due to patient's pain. Bundle Person strength 4+/5 in bilateral UE Neurovascular: Refill under 3 seconds bilaterally in upper extremity digits. DP pulses intact, bilaterally, 2+. - Labs CBC & Chem 7: 06/19/21 18:23 06/19/21 05:24 Labs: Abnormal Lab Results - Last 24 Hours (Table) 06/19/21 06/19/21 Range/Units 05:24 18:23 RBC 2.92 L (4.10-5.20) X 10*6/uL Hgb 8.6 L (12.0-15.0) g/dL Hct 27.1 L (37.2-46.3) % MCHC 31.7 L (32.0-37.0) g/dL Neutrophils # 7.77 H (1.80-7.70) X 10*3/uL Anion Gap 6.80 L (10.00-18.00) mmol/L Creatinine 0.5 L (0.6-1.5) mg/dL Glucose 119 H (70-110) mg/dL Calcium 8.0 L (8.7-10.3) mg/dL Assessment and Plan Assessment: 1. Right hip femoral neck and peritrochanteric fracture 2. s/p ffs Postop day 3 status post right hip hemiarthroplasty and open reduction internal fixation right greater trochanter Plan: 1. Right hip femoral neck and peritrochanteric fracture - surgery performed , 06/17/2021 - right hip hemiarthroplasty and open reduction internal fixation right greater trochanter. Patient stable at bedside this morning. X- rays of the right hip performed yesterday do demonstrate right hip hemiarthroplasty in stable position with cables and plate. Plan for discharge to [facility] for RAMON likely, tmrw, 06/21/2021. We'll continue to follow patient while in hospital 2. Appreciate medical management 3. Pain management - [place]; Dilaudid only if necessary 4. DVT prophylaxis - Lovenox 5. GI prophylaxis - Pepcid; senna 6. Encourage incentive spirometer use 7. PT/OT - 50% weightbearing right lower extremity. Weightbearing as tolerated left lower extremity with walker and assistance 8. Discharge planning - plan for discharge to [facility] for RAMON likely tmrw, 06/21/2021 Time with Patient: Less than 30
[2021-06-20] MEDS: SENNOSIDES-DOCUSATE SODIUM 1 EACH TAB PO SCH (20:04)
--- NOTE | 2021-06-21 02:21 | P.PN ---
Subjective Progress Note Date: 06/19/[address] Lozada This is a pleasant 86 years old female with past medical history of GERD/Reflux, Osteoarthritis, hyperlipidemia, history of her bradycardia and follow-up with automatic brine mixer operator Dr. Gibson, history of neuropathy, raynaulds, gout, HIATAL HERNIA, ORAL CANCER 2018 She presents because of fall and hip fracture. She was doing the grocery with family yesterday when she tripped and fell. Patient denies dizziness or syncope. Patient denies chest pain or dyspnea. No breathing difficulties or coughing. No change in urine or bowel habits. No dysuria or urgency. No fever. She denies smoking, alcohol or illicit drugs. Vitals are stable. Not shown only mild leukocytosis of 10.7, rest of CBC, INR, BMP and liver enzymes and electrolytes are unremarkable. CT scan of the right hip: Comminuted right proximal femoral fracture 06/18/2021 Patient status post open reduction and internal fixation for her comminuted right hip fracture after fall. Postoperatively she is lying in bed fully awake and oriented, more common than yesterday but, she still complaining of from pain in her surgery site, also she looks anxious. She asked for more pain medication which is provided. Hemodynamically stable WBC is 11.3 most likely reactive secondary to her surgery. Urine culture came back negative, the suspicion of UTI is very low therefore we stopped her ceftriaxone from tomorrow. Hemoglobin stable at 9.5. She still on IV hydration, which we will order to D5 normal saline as she has low appetite today. 06/19/2021 Patient is resting in the bed. Complains of pain over the incision site on the right hip. Patient could not participating in physical therapy. Denied any complaints of chest pain or shortness of breath. Mild nausea. No bowel movement today. No headache or dizziness or lightheadedness. Blood pressure is stable. Laboratory data showed WBC 10.0 hemoglobin 8.6 and platelets 228 BUN 10 and creatinine 0.5 and calcium 8.0 Currently being continued on D5 normal saline Current medications reviewed. Objective - Vital Signs Vital signs: Vital Signs Temp 99.5 F 06/19/21 08:00 Pulse 70 06/19/21 08:00 Resp 14 06/19/21 08:00 BP 151/68 06/19/21 08:00 Pulse Ox 100 06/19/21 08:00 Intake & Output 06/18/21 06/19/21 06/19/21 18:59 06:59 18:59 Intake Total 780 Output Total 600 941 Balance 180 -941 Intake: Oral 780 Output: Urine 600 325 Uretheral (Foster) 325 Post Void Residual 616 Other: Voiding Method Indwelling Catheter Diaper Diaper - Exam - Exam GENERAL: The patient is alert and oriented x3, not in any acute distress. Well developed, well nourished. HEENT: Pupils are round and equally reacting to light. EOMI. No scleral icterus. No conjunctival pallor. Normocephalic, atraumatic. No pharyngeal erythema. No thyromegaly. CARDIOVASCULAR: S1 and S2 present. No murmurs, rubs, or gallops. PULMONARY: Chest is clear to auscultation, no wheezing or crackles. ABDOMEN: Soft, nontender, nondistended, normoactive bowel sounds. No palpable organomegaly. MUSCULOSKELETAL: No joint swelling or deformity. -EXTREMITIES: No cyanosis, clubbing, or pedal edema. Right hip surgical wound with dressing in a Place. Rest of exam is deferred to surgery team NEUROLOGICAL: Gross neurological examination did not reveal any focal deficits. SKIN: No rashes. No petechiae - Labs CBC & Chem 7: 06/19/21 18:23 06/19/21 05:24 Labs: Abnormal Lab Results - Last 24 Hours (Table) 06/19/21 Range/Units 05:24 Anion Gap 6.80 L (10.00-18.00) mmol/L Creatinine 0.5 L (0.6-1.5) mg/dL Glucose 119 H (70-110) mg/dL Calcium 8.0 L (8.7-10.3) mg/dL Microbiology - Last 24 Hours (Table) 06/17/21 09:56 Urine Culture - Final Urine,Clean Catch Assessment and Plan Assessment: Comminuted acute right femoral fracture. Status post open reduction and internal fixation Fall without syncope Hyperlipidemia Asymptomatic bacteriuria rather than History of her bradycardia History of neuropathy History of Raynaud's History of gout History of hiatal hernia History of oral cancer in 2018 Plan: This is a pleasant 86 years old female who presents with right hip fracture Continue with pain medication per orthopedic team Cardiology team on the case for preop evaluation . Discontinue antibiotic Change fluids to D5 normal saline at 75 to per hour Start incentive spirometry Labs and medication were reviewed.. Monitor lytes and vitals. DVT and GI prophylaxis. Further recommendations depends on the clinical course of the patient DVT prophylaxis: Deferred to surgery primary team GI Prophylaxis: Pepcid PT/OT: Pending Prognosis is guarded Thank you for consulting us, we will follow up with you Time with Patient: Greater than 30
--- NOTE | 2021-06-21 02:25 | P.PN ---
Subjective Progress Note Date: 06/20/[address] 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 Gibson, history of neuropathy, raynaulds, gout, HIATAL HERNIA, ORAL CANCER 2018 She presents because of fall and hip fracture. She was doing the grocery with family yesterday when she tripped and fell. Patient denies dizziness or syncope. Patient denies chest pain or dyspnea. No breathing difficulties or coughing. No change in urine or bowel habits. No dysuria or urgency. No fever. She denies smoking, alcohol or illicit drugs. Vitals are stable. Not shown only mild leukocytosis of 10.7, rest of CBC, INR, BMP and liver enzymes and electrolytes are unremarkable. CT scan of the right hip: Comminuted right proximal femoral fracture 06/18/2021 Patient status post open reduction and internal fixation for her comminuted right hip fracture after fall. Postoperatively she is lying in bed fully awake and oriented, more common than yesterday but, she still complaining of from pain in her surgery site, also she looks anxious. She asked for more pain medication which is provided. Hemodynamically stable WBC is 11.3 most likely reactive secondary to her surgery. Urine culture came back negative, the suspicion of UTI is very low therefore we stopped her ceftriaxone from tomorrow. Hemoglobin stable at 9.5. She still on IV hydration, which we will order to D5 normal saline as she has low appetite today. 06/19/2021 Patient is resting in the bed. Complains of pain over the incision site on the right hip. Patient could not participating in physical therapy. Denied any complaints of chest pain or shortness of breath. Mild nausea. No bowel movement today. No headache or dizziness or lightheadedness. Blood pressure is stable. Laboratory data showed WBC 10.0 hemoglobin 8.6 and platelets 228 BUN 10 and creatinine 0.5 and calcium 8.0 Currently being continued on D5 normal saline 06/20/2021 Patient is currently resting in bed. Still complains of pain over the right hip surgical site area. Patient has been afebrile. No nausea vomiting or abdominal pain or diarrhea. No cough or sputum production. Patient was encouraged with incentive spirometry. No headache or dizziness. No other acute overnight issues.Oral intake is minimal. Lower blood pressures slightly elevated. With SBP 140s this afternoon. On room air saturating at 97%. Laboratory data reviewed. Monitor H&H. Urine culture showed no growth. Current medications reviewed. Objective - Vital Signs Vital signs: Vital Signs Temp 99.6 F 06/20/21 14:00 Pulse 72 06/20/21 14:00 Resp 16 06/20/21 14:00 BP 146/64 06/20/21 14:00 Pulse Ox 97 06/20/21 14:00 Intake & Output 06/19/21 06/20/21 06/20/21 18:59 06:59 18:59 Other: Voiding Method Diaper Diaper Diaper External Catheter External Catheter # Voids 1 4 # Bowel Movements 0 - Exam - Exam GENERAL: The patient is alert and oriented x3, not in any acute distress. Well developed, well nourished. HEENT: Pupils are round and equally reacting to light. EOMI. No scleral icterus. No conjunctival pallor. Normocephalic, atraumatic. No pharyngeal erythema. No thyromegaly. CARDIOVASCULAR: S1 and S2 present. No murmurs, rubs, or gallops. PULMONARY: Chest is clear to auscultation, no wheezing or crackles. ABDOMEN: Soft, nontender, nondistended, normoactive bowel sounds. No palpable organomegaly. MUSCULOSKELETAL: No joint swelling or deformity. -EXTREMITIES: No cyanosis, clubbing, or pedal edema. Right hip surgical wound with dressing in a Place. Rest of exam is deferred to surgery team NEUROLOGICAL: Gross neurological examination did not reveal any focal deficits. SKIN: No rashes. No petechiae - Labs CBC & Chem 7: 06/19/21 18:23 06/19/21 05:24 Labs: Abnormal Lab Results - Last 24 Hours (Table) 06/19/21 Range/Units 18:23 RBC 2.92 L (4.10-5.20) X 10*6/uL Hgb 8.6 L (12.0-15.0) g/dL Hct 27.1 L (37.2-46.3) % MCHC 31.7 L (32.0-37.0) g/dL Neutrophils # 7.77 H (1.80-7.70) X 10*3/uL Assessment and Plan Assessment: Comminuted acute right femoral fracture. Status post open reduction and internal fixation Fall without syncope Hyperlipidemia Asymptomatic bacteriuria rather than History of her bradycardia History of neuropathy History of Raynaud's History of gout History of hiatal hernia History of oral cancer in 2018 Plan: This is a pleasant 86 years old female who presents with right hip fracture Continue with pain medication per orthopedic team Cardiology team on the case for preop evaluation . Discontinue antibiotic Change fluids to D5 normal saline at 75 to per hour Start incentive spirometry Labs and medication were reviewed.. Monitor lytes and vitals. DVT and GI prophylaxis. Further recommendations depends on the clinical course of the patient DVT prophylaxis: Deferred to surgery primary team GI Prophylaxis: Pepcid PT/OT: Pending Prognosis is guarded Thank you for consulting us, we will follow up with you Time with Patient: Greater than 30
[2021-06-21] MEDS: DEXTROSE 5%-0.9% NACL 1,000 ML IV SCH ×2 (02:39→16:26)
[2021-06-21] MEDS: HYDROcodone/APAP 7.5-325MG 1 EACH TAB PO PRN ×2 (02:39→15:33)
--- NOTE | 2021-06-21 12:15 | P.PN ---
Subjective Progress Note Date: 06/21/21 Principal diagnosis: Right femoral neck fracture I am resuming care patient on 06/21/2021 This is a 86-year-old female patient currently admitted for right femoral neck fracture. Patient has a past medical history of GERD, osteoporosis, hyperlipidemia and bradycardia. Patient presented to ER after sustaining a fall and was found to have a hip fracture. Patient underwent surgical intervention on 06/17/2021 with right hip traci-opacity an open reduction internal fixation right greater trochanter with Dr. Cowart. Patient did have positive UTI on urinary analysis and urine culture was negative and antibiotics were DC'd. White blood cell has normalized. Patient also evaluated by cardiology for preoperative clearance On 06/21/2021 patient is alert and oriented 3 resting comfortably in bed. Patient complaining of mild right leg discomfort. Per surgical note possible discharge to ECF today. WBC 10.0, hemoglobin 8.6. Temp 98.6, heart rate 70, respiratory rate 18, blood pressure 157/65 patient satting 95% on room air. She currently on Lovenox for DVT prophylaxis Objective - Vital Signs Vital signs: Vital Signs Temp 98.6 F 06/21/21 02:08 Pulse 70 06/21/21 02:08 Resp 18 06/21/21 02:08 BP 157/65 06/21/21 02:08 Pulse Ox 95 06/21/21 02:08 Intake & Output 06/20/21 06/21/21 06/21/21 18:59 06:59 18:59 Output Total 300 Balance -300 Output: Urine 300 Other: Voiding Method Diaper Diaper External Catheter External Catheter - Exam Head normocephalic Neck supple Lungs clear to auscultation bilaterally no wheezing or crackles Heart regular rate and rhythm S1-S2, no rub or gallop Abdomen is soft nontender nondistended positive bowel sounds no hepatosplenomegaly Extremities no edema. Right hip dressing clean dry and intact Neuro alert and orientated to 3 - Labs CBC & Chem 7: 06/19/21 18:23 06/19/21 05:24 Assessment and Plan Assessment: 1. Community acute right femoral fracture status post open reduction internal fixation 2. History of hyperlipidemia 3. Positive UA patient was treated with antibiotics but these were DC'd when urine culture returned negative. Patient asymptomatic 4. History of bradycardia 5. History of neuropathy 6. History of a Raynauds 7. History of gout 8. History of hiatal hernia 9. History of oral cancer in 2018 DVT prophylaxis Lovenox. GI prophylaxis Pepcid Incentive spirometer encouraged Cardiology services were consulted for preop clearance DC planning in place per surgical team to ECF
[2021-06-21 12:58] LABS: African American GFR (CKD) >90 (>60 ml/min/1.73 sqM); Anion Gap 3 mmol/L; Blood Urea Nitrogen 14 mg/dL (7-17); Calcium 7.3 mg/dL (8.4-10.2); Carbon Dioxide 22 mmol/L (22-30); Chloride 112 mmol/L (98-107); Glucose 144 mg/dL (74-99); Non-African American GFR(CKD) 87 (>60 ml/min/1.73 sqM); Potassium 3.4 mmol/L (3.5-5.1); Sodium 137 mmol/L (137-145)
[2021-06-21] MEDS: FENOFIBRATE 160 MG TAB PO SCH (13:27)
[2021-06-21] MEDS: ATORVASTATIN 40 MG TAB PO SCH (13:27)
[2021-06-21] MEDS: ENOXAPARIN 40 MG/0.4 ML SYRINGE SQ SCH (13:27)
[2021-06-21] MEDS: amLODIPine 5 MG TAB PO SCH (13:27)
[2021-06-21] MEDS: FAMOTIDINE 20 MG TAB PO SCH ×2 (13:27→21:45)
[2021-06-21 13:49] LABS: Basophils % (A) 0 %; Eosinophils # (A) 0.3 k/uL (0-0.7); Eosinophils % (A) 4 %; HCT 26.6 % (34.0-46.0); Lymphocytes # (A) 1.2 k/uL (1.0-4.8); Lymphocytes % (A) 16 %; MCV 93.7 fL (80.0-100.0); Mean Platelet Volume 9.6; Monocytes # (A) 0.5 k/uL (0-1.0); Monocytes % (A) 7 %; Neutrophils # (A) 5.4 k/uL (1.3-7.7); Neutrophils % (A) 72 %; Platelet Count 286 k/uL (150-450); RBC 2.84 m/uL (3.80-5.40); RDW 12.6 % (11.5-15.5); WBC 7.5 k/uL (3.8-10.6)
[2021-06-21 13:56] LABS: HGB 8.5 gm/dL (11.4-16.0)
--- NOTE | 2021-06-21 14:20 | P.DS ---
Providers Date of admission: 06/16/21 16:30 Expected date of discharge: 06/21/21 Attending physician: Irving Velez DO Consults: 06/16/21 16:31 Consult Physician Routine Consulting Provider: Guadalupe Lozada Consult Reason/Comments: Medical management Do you want consulting provider notified?: Yes 06/17/21 07:42 Consult Physician Urgent Consulting Provider: Billy Sidhu Consult Reason/Comments: pre-op clearance, history of bradycardia Do you want consulting provider notified?: Yes Primary care physician: Guadalupe Lozada [facility] Course: Date of admission: 06/17/2021 Date of discharge: 06/21/2021 Admission diagnosis: Right hip femoral neck and peritrochanteric fracture Discharge diagnosis: Same Attending physician: Dr. Velez Surgical procedures: right hip hemiarthroplasty and open reduction internal fixation right greater trochanter Brief history: Patient is a 86-year-old female with a history of right hip femoral neck and peritrochanteric fracture status post fall. At this point patient has failed conservative treatment measures and has opted to proceed with a elective right hip hemiarthroplasty and open reduction internal fixation right greater trochanter. Hospital course: Details of patient's surgery can be found in operative report. Patient tolerated the procedure well and was subsequently transported to orthopedic floor. Patient's orthopeidc and medical care was provided daily. Patient had daily laboratory tests performed for evaluation of overall blood counts. Patient had daily physical therapy to include strengthening range of motion as well as education with walker ambulation. Patient was treated with Lovenox for their postoperative DVT prophylaxis during their inpatient stay. Patient was noted to have a relatively uneventful postoperative course. Patient reported satisfactory pain control with oral pain medications by postoperative day 4. Patient showed satisfactory progress with physical therapy. Patient moved steadily through the program and had no difficulty meeting the goals by postoperative day 4. Given patient's otherwise satisfactory course and having met physical therapy goals, plan is to discharge patient subacute rehab on postoperative day 4. Discharge condition/disposition: Patient will be discharged subacute rehab in stable condition. Discharge medications: Instructions are given on resumption of patient's normal daily medications per primary care recommendation, in addition patient will be prescribed [place]; Lovenox; senna. Discharge instructions: 1. Wound care and infection precautions, keep incision dry and covered while showering, no lotions, creams, moisturizers. No soaking, tubs, pools, hottubs. Do not scrub over the incision. 2. Weight-bear as tolerated with walker until follow-up. 3. Ice and elevate when necessary. Do not exceed 20 minutes per hour with ice pack. 4. Nursing care. 5. Physical therapy 6. Pain meds and anticoagulants per prescription. 7. Pain medication has potential to cause constipation. Increase oral fluid and fiber intake. Contact primary care provider if you have not had a bowel movement within 48 hours after discharge 8. No anti-inflammatory medication until discussed at first post operative visit, this including Motrin, Aleve, Mobic, Diclofenac. 9. Follow up in office at 2 weeks postop with Alexander Nicholas PA-C / Alf Contreras PA-C 10. Follow up with your primary care doctor 7-10 days after discharge. 11. Contact [facility] with any questions, . Assessment: 1. Right hip femoral neck and peritrochanteric fracture Procedures: right hip hemiarthroplasty and open reduction internal fixation right greater trochanter Patient Condition at Discharge: Good Plan - Discharge Summary New Discharge Prescriptions: New HYDROcodone/APAP 5-325MG [[place] 5-325] 1 - 2 tab PO Q6HR PRN #24 tab PRN Reason: Pain Sennosides [Senna] 8.6 mg PO DAILY 20 Days tablet Enoxaparin [Lovenox] 30 mg SQ DAILY #21 each No Action amLODIPine [Norvasc] 5 mg PO DAILY Ferrous Sulfate [Iron (65 MG Elemental)] 325 mg PO DAILY Juvenon 2 tab PO DAILY Aspirin [Adult Low Dose Aspirin EC] 81 mg PO DAILY [place]-3 Fatty Acids/Fish Oil [Fish Oil 1,000 mg Softgel] 1 cap PO BID Glucosam/John-Msm1/C/[place]/Bosw [Glucosamine-Chondroitin Tablet] 1 tab PO DAILY Multivitamins, Thera [Multivitamin (formulary)] 1 tab PO DAILY Calcium Carbonate [Calcium] 1,200 mg PO BID Fenofibrate Nanocrystallized [Fenofibrate] 145 mg PO DAILY Ascorbic Acid [Vitamin C] 500 mg PO DAILY Cholecalciferol [Vitamin D3 (25 Mcg = 1000 Iu)] 25 mcg PO DAILY Rosuvastatin [Crestor] 20 mg PO DAILY Ubidecarenone [Co Q-10] 100 mg PO BID Discharge Medication List amLODIPine [Norvasc] 5 mg PO DAILY 12/23/14 [History] Ferrous Sulfate [Iron (65 MG Elemental)] 325 mg PO DAILY 04/17/17 [History] Aspirin [Adult Low Dose Aspirin EC] 81 mg PO DAILY 09/20/17 [History] Glucosam/John-Msm1/C/[place]/Bosw [Glucosamine-Chondroitin Tablet] 1 tab PO DAILY 09/20/17 [History] Juvenon 2 tab PO DAILY 09/20/17 [History] [place]-3 Fatty Acids/Fish Oil [Fish Oil 1,000 mg Softgel] 1 cap PO BID 09/20/17 [History] Calcium Carbonate [Calcium] 1,200 mg PO BID 06/06/18 [History] Multivitamins, Thera [Multivitamin (formulary)] 1 tab PO DAILY 06/06/18 [History] Fenofibrate Nanocrystallized [Fenofibrate] 145 mg PO DAILY 03/06/20 [History] Ascorbic Acid [Vitamin C] 500 mg PO DAILY 06/16/21 [History] Cholecalciferol [Vitamin D3 (25 Mcg = 1000 Iu)] 25 mcg PO DAILY 06/16/21 [History] Rosuvastatin [Crestor] 20 mg PO DAILY 06/16/21 [History] Ubidecarenone [Co Q-10] 100 mg PO BID 06/16/21 [History] Enoxaparin [Lovenox] 30 mg SQ DAILY #21 each 06/21/21 [Rx] HYDROcodone/APAP 5-325MG [[place] 5-325] 1 - 2 tab PO Q6HR PRN #24 tab 06/21/21 [Rx] Sennosides [Senna] 8.6 mg PO DAILY 20 Days tablet 06/21/21 [Rx] Follow up Appointment(s)/Referral(s): Mg Hebert MD [STAFF PHYSICIAN] - 2 Weeks Bhavesh Connelly [NON-STAFF] - As Needed Irving Velez DO [Doctor of Osteopathic Medicine] - 2 Weeks Guadalupe Lozada MD [Primary Care Provider] - 1-2 days Activity/Diet/Wound Care/Special Instructions: Discharge instructions: 1. Wound care and infection precautions, keep incision dry and covered while showering, no lotions, creams, moisturizers. No soaking, tubs, pools, hottubs. Do not scrub over the incision. 2. Weight-bear as tolerated with walker until follow-up. 3. Ice and elevate when necessary. Do not exceed 20 minutes per hour with ice pack. 4. Nursing care. 5. Physical therapy 6. Pain meds and anticoagulants per prescription. 7. Pain medication has potential to cause constipation. Increase oral fluid and fiber intake. Contact primary care provider if you have not had a bowel movement within 48 hours after discharge 8. No anti-inflammatory medication until discussed at first post operative visit, this including Motrin, Aleve, Mobic, Diclofenac. 9. Follow up in office at 2 weeks postop with Alexander Nicholas PA-C / Alf Contreras PA-C 10. Follow up with your primary care doctor 7-10 days after discharge. 11. Contact [facility] with any questions, . Medications: [place]; Lovenox; senna Discharge Disposition: TRANSFER TO SNF/ECF
--- NOTE | 2021-06-21 14:23 | P.PN ---
Subjective Progress Note Date: 06/21/21 Principal diagnosis: Right hip femoral neck and peritrochanteric fracture s/p fall Patient was seen at bedside this morning resting comfortably lying in the semirecumbent position. Patient says she is having moderate pain over incision on the right hip. Patient says she did get up with PT yesterday and stood at bedside. Patient says she has had something to eat since surgery. Patient denies chest pain, fever, shortness of breath, nausea, vomiting, change in vision, loss of bowel/bladder control. Objective - Vital Signs Vital signs: Vital Signs Temp 98.6 F 06/21/21 02:08 Pulse 70 06/21/21 02:08 Resp 18 06/21/21 02:08 BP 157/65 06/21/21 02:08 Pulse Ox 95 06/21/21 02:08 Intake & Output 06/20/21 06/21/21 06/21/21 18:59 06:59 18:59 Output Total 300 Balance -300 Output: Urine 300 Other: Voiding Method Diaper Diaper External Catheter External Catheter - Exam Inspection: Opti-foam dressings present on right lateral upper leg. [place] are well aligned and in good place. There is some minimal serosanguineous drainage. Some ecchymosis present along the right upper leg. Sensation: Sensation is equal, symmetric, bilaterally intact throughout. Palpation: There is moderate tenderness to palpation diffusely throughout the Right hip especially in lateral region. Nontender to palpation throughout rest of exam. Negative Homans bilaterally Range of motion: Patient is able to flex and extend digits in right foot and plantar/dorsiflex right ankle. Right hip/knee ROM limited due to pain. Patient has full range of motion in bilateral UE and LLE Motor: Left leg - 4+/5 in resisted hip flexion/extension, knee flexion/extension, plantar flexion/dorsiflexion the left ankle; 4+/5 in resisted elbow flexion/extension, wrist flexion/extension, shoulder abduction, internal/external rotation of the bilateral UE. Patient is able to dorsi and plantarflex right ankle. Right hip/knee motor exams limited due to patient's pain. Magazine Keeper strength 4+/5 in bilateral UE Neurovascular: Refill under 3 seconds bilaterally in upper extremity digits. DP pulses intact, bilaterally, 2+. - Labs CBC & Chem 7: 06/21/21 03:51 06/21/21 03:51 Labs: Abnormal Lab Results - Last 24 Hours (Table) 06/21/21 06/21/21 Range/Units 03:51 03:51 RBC 2.84 L (3.80-5.40) m/uL Hgb 8.5 L D (11.4-16.0) gm/dL Hct 26.6 L (34.0-46.0) % Potassium 3.4 L (3.5-5.1) mmol/L Chloride 112 H (98-107) mmol/L Creatinine 0.51 L (0.52-1.04) mg/dL Glucose 144 H (74-99) mg/dL Calcium 7.3 L (8.4-10.2) mg/dL Assessment and Plan Assessment: 1. Right hip femoral neck and peritrochanteric fracture 2. s/p ffs Postop day 4 status post right hip hemiarthroplasty and open reduction internal fixation right greater trochanter Plan: 1. Right hip femoral neck and peritrochanteric fracture - surgery performed , 06/17/2021 - right hip hemiarthroplasty and open reduction internal fixation right greater trochanter. Patient stable at bedside this morning. X- rays of the right hip performed do demonstrate right hip hemiarthroplasty in stable position with cables and plate. Discharge to [facility] today. 2. Appreciate medical management 3. Pain management - [place] 4. DVT prophylaxis - Lovenox 5. GI prophylaxis - Pepcid; senna 6. Encourage incentive spirometer use 7. PT/OT - 50% weightbearing right lower extremity. Weightbearing as tolerated left lower extremity with walker and assistance 8. Discharge planning - discharge to [facility] today, 06/21/2021 Time with Patient: Less than 30
[2021-06-21] MEDS: SENNOSIDES-DOCUSATE SODIUM 1 EACH TAB PO SCH (21:45)
[2021-06-22] MEDS: DEXTROSE 5%-0.9% NACL 1,000 ML IV SCH ×2 (04:12→15:28)
[2021-06-22] MEDS: FAMOTIDINE 20 MG TAB PO SCH ×2 (07:57→21:37)
[2021-06-22] MEDS: ATORVASTATIN 40 MG TAB PO SCH (07:57)
[2021-06-22] MEDS: amLODIPine 5 MG TAB PO SCH (07:57)
[2021-06-22] MEDS: FENOFIBRATE 160 MG TAB PO SCH (07:58)
[2021-06-22] MEDS: ENOXAPARIN 40 MG/0.4 ML SYRINGE SQ SCH (07:58)
--- NOTE | 2021-06-22 08:55 | P.PN ---
Subjective Progress Note Date: 06/22/21 Principal diagnosis: Right hip femoral neck and peritrochanteric fracture s/p fall Patient seen and examined today at bedside. Patient resting semi-recumbent in bed, family at bedside. Surgical dressing to right hip is clean dry and intact. Patient denies any numbness tingling to right lower extremity. Patient able to wiggle toes and lift right lower extremity off bed. Ms. James states pain is managed on current regimen. Encouraged patient to work with physical therapy and to sit in chair with meals. Patient states she was supposed to be discharged yesterday to [facility] but due to positive covid swab, she was denied. Patient is asymptomatic at this time. Anticipating discharge today to subacute rehab pending acceptance. Objective - Vital Signs Vital signs: Vital Signs Temp 98.4 F 06/22/21 06:00 Pulse 62 06/22/21 06:00 Resp 18 06/22/21 02:20 BP 141/56 06/22/21 06:00 Pulse Ox 97 06/22/21 06:00 Intake & Output 06/21/21 06/22/21 06/22/21 18:59 06:59 18:59 Output Total 400 Balance -400 Output: Urine 400 Other: Voiding Method Diaper Diaper External Catheter External Catheter # Bowel Movements 1 - Exam Physical Examination General: The patient is awake and alert, in no acute distress Skin: Skin is warm and dry with no obvious rashes or lesions. Hairy patches absent, no dorsal skin dimples, no cafe au lait spots. Surgical incision to right hip Eye: Pupils are equal, round and reactive to light, extra-ocular movements are intact; there is normal conjunctiva bilaterally. Neck: The neck is supple, there is no tenderness and ROM intact. Cardiovascular: There is a regular rate and rhythm. No murmur, rub or gallop is appreciated. Respiratory: Lungs are clear to auscultation, respirations are non-labored, breath sounds are equal. Gastrointestinal: Soft, non-distended, non-tender abdomen . Back: There is no tenderness to palpation in the midline, paralumbar, parathoracic or buttocks region. There is no obvious deformity . Musculoskeletal: ROM limited secondary to pain and stiffness from surgical procedure. Shoulder abduction 5/5, elbow flexors 5/5, wrist dorsiflexors 5/5. finger abductor 5/5, glass forming engineer 5/5, hip flexor 4/5, knee flexor 4/5, ankle dorsiflexor 4/5, ankle plantarflexion 4/5 and extensor hallucis 4/5. Neurological: CN 2-12 intact. There are no obvious motor or sensory deficits. Movement and coordination equal and intact. Sensory exam to light touch intact C5-T1 and intact from L2-S1. Reflexes 2/4 in bilateral upper and lower extremities. Negative Hoffmans, babinski, and clonus signs. Psychiatric: Cooperative, appropriate mood & affect, normal judgment. - Labs CBC & Chem 7: 06/21/21 03:51 06/21/21 03:51 Labs: Abnormal Lab Results - Last 24 Hours (Table) 06/21/21 06/21/21 06/21/21 Range/Units 03:51 03:51 Unknown RBC 2.84 L (3.80-5.40) m/uL Hgb 8.5 L D (11.4-16.0) gm/dL Hct 26.6 L (34.0-46.0) % Potassium 3.4 L (3.5-5.1) mmol/L Chloride 112 H (98-107) mmol/L Creatinine 0.51 L (0.52-1.04) mg/dL Glucose 144 H (74-99) mg/dL Calcium 7.3 L (8.4-10.2) mg/dL Coronavirus (PCR) Detected A (Not Detectd) Assessment and Plan Assessment: 1. Right hip femoral neck and peritrochanteric fracture s/p fall 2. Postop day 5 status post right hip hemiarthroplasty and open reduction internal fixation right greater trochanter Plan: Plan: -Appreciate customs consultant and team management. -Activity: Ambulate QID, OOB all meals, up and about, Use walker for stability. -Daily PT/OT, increase ambulation strength and balance. -Pain control: Adequate at this time -Meds: reviewed -GI ppx: senna, Miralax -DVT PPX: heparin -Hygiene: Shower today. Maintain dressing clean and dry. -Encourage IS 10x/hr -Dispo: Anticipate discharge to [facility] today06/22/21 or tomorrow 06/23/21 *I reviewed and discussed this case with my attending Dr. Velez, whom has reviewed this chart and films and is in agreement with assessment and plan of care as outlined above. I have personally seen and examined the patient, performed the documentation and the assessment and plan as written. Number of minutes spent on the visit: 20 minutes. Time with Patient: Less than 30
[2021-06-22] MEDS: HYDROcodone/APAP 7.5-325MG 1 EACH TAB PO PRN ×3 (09:02→23:01)
--- NOTE | 2021-06-22 19:12 | P.PN ---
Subjective Progress Note Date: 06/22/21 Principal diagnosis: Right femoral neck fracture I am resuming care patient on 06/21/2021 This is a 86-year-old female patient currently admitted for right femoral neck fracture. Patient has a past medical history of GERD, osteoporosis, hyperlipidemia and bradycardia. Patient presented to ER after sustaining a fall and was found to have a hip fracture. Patient underwent surgical intervention on 06/17/2021 with right hip traci-opacity an open reduction internal fixation right greater trochanter with Dr. Cowart. Patient did have positive UTI on urinary analysis and urine culture was negative and antibiotics were DC'd. White blood cell has normalized. Patient also evaluated by cardiology for preoperative clearance On 06/21/2021 patient is alert and oriented 3 resting comfortably in bed. Patient complaining of mild right leg discomfort. Per surgical note possible discharge to [facility] today. WBC 10.0, hemoglobin 8.6. Temp 98.6, heart rate 70, respiratory rate 18, blood pressure 157/65 patient satting 95% on room air. She currently on Lovenox for DVT prophylaxis On 06/22/2021 patient was seen and examined on the medical floor she is alert and oriented 3 in no apparent distress, patient was scheduled to be transferred to [facility] for [facility] yesterday however she tested positive for COVID-19 infection, she denies any symptoms related to COVID-19 infection there is no sore throat no fever no cough no shortness of breath, at this time we are awaiting authorization to transfer patient to [facility] Objective - Vital Signs Vital signs: Vital Signs Temp 98.4 F 06/22/21 06:00 Pulse 62 06/22/21 06:00 Resp 18 06/22/21 02:20 BP 141/56 06/22/21 06:00 Pulse Ox 97 06/22/21 06:00 Intake & Output 06/21/21 06/22/21 06/22/21 18:59 06:59 18:59 Output Total 400 Balance -400 Output: Urine 400 Other: Voiding Method Diaper Diaper External Catheter External Catheter # Bowel Movements 1 - Exam Head normocephalic Neck supple Lungs clear to auscultation bilaterally no wheezing or crackles Heart regular rate and rhythm S1-S2, no rub or gallop Abdomen is soft nontender nondistended positive bowel sounds no hepatosplenomegaly Extremities no edema. Right hip dressing clean dry and intact Neuro alert and orientated to 3 - Labs CBC & Chem 7: 06/21/21 03:51 06/21/21 03:51 Labs: Abnormal Lab Results - Last 24 Hours (Table) 06/21/21 06/21/21 06/21/21 Range/Units 03:51 03:51 Unknown RBC 2.84 L (3.80-5.40) m/uL Hgb 8.5 L D (11.4-16.0) gm/dL Hct 26.6 L (34.0-46.0) % Potassium 3.4 L (3.5-5.1) mmol/L Chloride 112 H (98-107) mmol/L Creatinine 0.51 L (0.52-1.04) mg/dL Glucose 144 H (74-99) mg/dL Calcium 7.3 L (8.4-10.2) mg/dL Coronavirus (PCR) Detected A (Not Detectd) Assessment and Plan Assessment: 1. Community acute right femoral fracture status post open reduction internal fixation 2. History of hyperlipidemia 3. Positive UA patient was treated with antibiotics but these were DC'd when urine culture returned negative. Patient asymptomatic 4. History of bradycardia 5. History of neuropathy 6. History of a Raynauds 7. History of gout 8. History of hiatal hernia 9. History of oral cancer in 2018 DVT prophylaxis Lovenox. GI prophylaxis Pepcid Incentive spirometer encouraged Cardiology services were consulted for preop clearance DC planning in place per surgical team to [facility]
[2021-06-22] MEDS: SENNOSIDES-DOCUSATE SODIUM 1 EACH TAB PO SCH (21:36)
[2021-06-23] MEDS: DEXTROSE 5%-0.9% NACL 1,000 ML IV SCH ×2 (07:07→11:15)
--- NOTE | 2021-06-23 07:47 | P.PN ---
Subjective Progress Note Date: 06/23/21 Principal diagnosis: Right hip femoral neck and peritrochanteric fracture s/p fall Patient seen and examined today at bedside. Patient resting semi-recumbent in bed. Surgical dressing to right hip is clean dry and intact. Patient denies any numbness tingling to right lower extremity. Patient able to wiggle toes and lift right lower extremity off bed. Ms. James dates that her pain has improved from yesterday. She has been working with physical therapy and was up to chair with meals. Patient states she is having difficulty due to slight weakness and pain, but no she has to work through it. Patient is looking forward to discharge to rehab. Anticipating discharge today pending acceptance. Objective - Vital Signs Vital signs: Vital Signs Temp 98.4 F 06/23/21 05:35 Pulse 58 L 06/23/21 05:35 Resp 20 06/23/21 05:35 BP 145/71 06/23/21 05:35 Pulse Ox 96 06/23/21 05:35 Intake & Output 06/22/21 06/23/21 06/23/21 18:59 06:59 18:59 Intake Total 180 Output Total 400 Balance -220 Intake: Oral 180 Output: Urine 400 Other: Voiding Method Diaper Diaper # Bowel Movements 1 - Exam Physical Examination General: The patient is awake and alert, in no acute distress Skin: Skin is warm and dry with no obvious rashes or lesions. Hairy patches absent, no dorsal skin dimples, no cafe au lait spots. Surgical incision to right hip Eye: Pupils are equal, round and reactive to light, extra-ocular movements are intact; there is normal conjunctiva bilaterally. Neck: The neck is supple, there is no tenderness and ROM intact. Cardiovascular: There is a regular rate and rhythm. No murmur, rub or gallop is appreciated. Respiratory: Lungs are clear to auscultation, respirations are non-labored, breath sounds are equal. Gastrointestinal: Soft, non-distended, non-tender abdomen . Back: There is no tenderness to palpation in the midline, paralumbar, parathoracic or buttocks region. There is no obvious deformity . Musculoskeletal: ROM limited secondary to pain and stiffness from surgical procedure. Shoulder abduction 5/5, elbow flexors 5/5, wrist dorsiflexors 5/5. finger abductor 5/5, spanish speaking babysitter 5/5, hip flexor 4/5, knee flexor 4/5, ankle dorsiflexor 4/5, ankle plantarflexion 4/5 and extensor hallucis 4/5. Neurological: CN 2-12 intact. There are no obvious motor or sensory deficits. Movement and coordination equal and intact. Sensory exam to light touch intact C5-T1 and intact from L2-S1. Reflexes 2/4 in bilateral upper and lower extremities. Negative Hoffmans, babinski, and clonus signs. Psychiatric: Cooperative, appropriate mood & affect, normal judgment. - Labs CBC & Chem 7: 06/21/21 03:51 06/21/21 03:51 Assessment and Plan Assessment: 1. Right hip femoral neck and peritrochanteric fracture s/p fall 2. Postop day 6 status post right hip hemiarthroplasty and open reduction internal fixation right greater trochanter Plan: Plan: -Appreciate application security consultant and team management. -Activity: Ambulate QID, OOB all meals, up and about, Use walker for stability. -Daily PT/OT, increase ambulation strength and balance. -Pain control: Adequate at this time -Meds: reviewed -GI ppx: senna, Miralax -DVT PPX: heparin -Hygiene: Shower today. Maintain dressing clean and dry. -Encourage IS 10x/hr -Dispo: Anticipate discharge to [facility] today 06/23/21 pending authorization. *I reviewed and discussed this case with my attending Dr. Velez, whom has reviewed this chart and films and is in agreement with assessment and plan of care as outlined above. I have personally seen and examined the patient, performed the documentation and the assessment and plan as written. Number of minutes spent on the visit: 20 minutes. Time with Patient: Less than 30
[2021-06-23] MEDS: amLODIPine 5 MG TAB PO SCH (08:09)
[2021-06-23] MEDS: ATORVASTATIN 40 MG TAB PO SCH (08:09)
[2021-06-23] MEDS: FAMOTIDINE 20 MG TAB PO SCH (08:09)
[2021-06-23] MEDS: ENOXAPARIN 40 MG/0.4 ML SYRINGE SQ SCH (08:09)
[2021-06-23] MEDS: FENOFIBRATE 160 MG TAB PO SCH (08:09)
[2021-06-23] MEDS: HYDROcodone/APAP 7.5-325MG 1 EACH TAB PO PRN ×2 (08:12→14:30)
[2021-06-23 08:58] VITALS: RESP 18
[2021-06-23 14:36] VITALS: BMI 25.7
[2021-06-23 14:45] VITALS: BP 146/56; PULSE 69; TEMP 98.1
== END 2021-06-23 15:46 | DRG 521 ==
LOC: EC 14:55 → 4SSUR 16:30
PROVIDERS: ADMIT Orthopaedic Surgery; ATTEND Orthopaedic Surgery
PROC: 0SRR0JA Replacement of Right Hip Joint, Femoral Surface with Synthetic Substitute, Uncemented, Open Approach (ICD-10-PCS; principal; 2021-06-17 08:30)
DX: S72.091A Other fracture of head and neck of right femur, initial encounter for closed fracture (principal); U07.1 COVID-19; W01.198A Fall on same level from slipping, tripping and stumbling with subsequent striking against other object, initial encounter; Y92.000 Kitchen of unspecified non-institutional (private) residence as the place of occurrence of the external cause; E78.5 Hyperlipidemia, unspecified; I10 Essential (primary) hypertension; I25.10 Atherosclerotic heart disease of native coronary artery without angina pectoris; I27.20 Pulmonary hypertension, unspecified; I44.0 Atrioventricular block, first degree; I73.00 Raynaud's syndrome without gangrene; M81.0 Age-related osteoporosis without current pathological fracture; Z79.82 Long term (current) use of aspirin; Z79.899 Other long term (current) drug therapy; Z80.0 Family history of malignant neoplasm of digestive organs; Z82.49 Family history of ischemic heart disease and other diseases of the circulatory system; Z83.3 Family history of diabetes mellitus; Z85.819 Personal history of malignant neoplasm of unspecified site of lip, oral cavity, and pharynx; M19.90 Unspecified osteoarthritis, unspecified site; Z95.0 Presence of cardiac pacemaker; R00.1 Bradycardia, unspecified; Z28.310 Unvaccinated for COVID-19; M10.9 Gout, unspecified; Z60.2 Problems related to living alone; Z86.14 Personal history of Methicillin resistant Staphylococcus aureus infection; Z98.51 Tubal ligation status; Z90.89 Acquired absence of other organs; K08.199 Complete loss of teeth due to other specified cause, unspecified class; Z98.890 Other specified postprocedural states; Z98.42 Cataract extraction status, left eye; Z98.41 Cataract extraction status, right eye; Z80.8 Family history of malignant neoplasm of other organs or systems; Z88.1 Allergy status to other antibiotic agents; Z82.0 Family history of epilepsy and other diseases of the nervous system
CPT/HCPCS: 12001; 36415; 70450; 71045; 72125; 73501; 73502; 80048; 80053; 81001; 83735; 85025; 85610; 85730; 86850; 86900; 86901; 87086; 87635; 88305; 88311; 93005; 93306; 96361; 96374; 96375; 96376; 99285

== ENCOUNTER 2021-08-05 10:17 | Emergency (ER) | payer MEDICARE ==
[2021-08-05 10:28] VITALS: BP 174/64; PULSE 67; RESP 18; TEMP 98.2
[2021-08-05] MEDS ORDERED: MORPHINE SULFATE 2 MG/ML SYRINGE IVP ONE (10:42)
--- NOTE | 2021-08-05 10:47 | ED ---
General Adult HPI - General Chief complaint: Extremity Problem,Nontraumatic Stated complaint: possible blood clot Time Seen by Provider: 08/05/21 10:40 Source: patient, RN notes reviewed, old records reviewed Mode of arrival: wheelchair Limitations: no limitations - History of Present Illness Initial comments: 86-year-old female presents with family member sent by Dr. Becker her golf cart maker for evaluation of possible DVT right leg. She states that she has had swelling of the right leg since last week and Dr. Becker recommended elevation. When he seen her again today he recommended evaluation to rule out DVT. Patient has been being treated for bilateral chronic foot ulcers. She does have a history of a right hip fracture in May of this year. She denies any blood thinners other than aspirin. She states that she does have neuropathy so the p ain is intermittent. She does have full range of motion and is ambulatory with her walker. She denies any chest pain or shortness of breath. No fevers, no nausea vomiting or diarrhea. Location: right, lower extremity Severity scale (1-10): 7 Quality: aching Consistency: intermittent Improves with: none Worsens with: none Associated Symptoms: denies other symptoms - Related Data Home Medications Medication Instructions Recorded Confirmed amLODIPine [Norvasc] 5 mg PO DAILY 12/23/14 08/05/21 Ferrous Sulfate [Iron (65 MG 325 mg PO HS 04/17/17 08/05/21 Elemental)] Aspirin [Adult Low Dose Aspirin EC] 81 mg PO DAILY 09/20/17 08/05/21 Glucosam/John-Msm1/C/[place]incoln/Bosw 1 tab PO HS 09/20/17 08/05/21 [Glucosamine-Chondroitin Tablet] Calcium Carbonate [Calcium] 1,200 mg PO BID 06/06/18 08/05/21 Multivitamins, Thera [Multivitamin 1 tab PO HS 06/06/18 08/05/21 (formulary)] Ascorbic Acid [Vitamin C] 500 mg PO HS 06/16/21 08/05/21 Cholecalciferol [Vitamin D3 (25 25 mcg PO HS 06/16/21 08/05/21 Mcg = 1000 Iu)] Atorvastatin [Lipitor] 40 mg PO DAILY 08/05/21 08/05/21 Fenofibrate,Micronized 200 mg PO DAILY 08/05/21 08/05/21 Fish Oil/Dha/Epa [Fish Oil 1,200 1 cap PO BID 08/05/21 08/05/21 mg Fish Oil] Omeprazole 20 mg PO DAILY 08/05/21 08/05/21 Ubidecarenone [Co Q-10] 100 mg PO BID 08/05/21 08/05/21 Previous Rx's Medication Instructions Recorded Apixaban [Eliquis] 0 mg PO DIRECTED #74 tablet 08/05/21 Allergies Allergy/AdvReac Type Severity Reaction Status Date / Time cefazolin [From Kefzol] Allergy Severe Rash/Hives Verified 08/05/21 11:50 daptomycin Allergy Unknown Verified 08/05/21 11:50 vancomycin Allergy Rash/Hives Verified 08/05/21 11:50 Review of Systems ROS Statement: Those systems with pertinent positive or pertinent negative responses have been documented in the HPI. ROS Other: All systems not noted in ROS Statement are negative. Past Medical History Past Medical History: Cancer, GERD/Reflux, Osteoarthritis (OA) Additional Past Medical History / Comment(s): SEE DR PERSAUD H&P, Left foot wound, neuropathy, raynaulds, gout, HIATAL HERNIA, ORAL CANCER 2018 History of Any Multi-Drug Resistant Organisms: MRSA Date of last positivie culture/infection: Unknown Patient states Hx of MRSA. No MRSA at [facility]. MDRO Source:: left foot Past Surgical History: Bladder Surgery, Orthopedic Surgery, Tonsillectomy, Tubal Ligation Additional Past Surgical History / Comment(s): 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), SINUS BX-NEG, COLONOSCOPY, MICHELLE BREAST BX-NEG, MICHELLE CATARACTS, PT WAS BORN WITH EXTRA THUMB ON RT HAND HAD IT SX REMOVED WHEN SHE WAS AN INFANT.BLADDER SUSPENSION, CARBAJAL NEUROMA REMOVED. oral surgery 06/19/17 for removal of cancer, teeth extraction and some bone removal Past Anesthesia/Blood Transfusion Reactions: Previous Problems w/ Anesthesia Additional Past Anesthesia/Blood Transfusion Reaction / Comment(s): Hard time coming out of anesthesia after oral cancer surgery (Patient unsure of this previous notation) Past Psychological History: No Psychological Hx Reported Smoking Status: Never smoker Past Alcohol Use History: None Reported Past Drug Use History: None Reported - Past Family History Son(s) Family Medical History: No Reported History Sister(s) Family Medical History: Diabetes Mellitus Brother(s) Family Medical History: No Reported History Mother Family Medical History: Cancer Additional Family Medical History / Comment(s): PANCREATIC CANCER Father Family Medical History: Congestive Heart Failure (CHF) Additional Family Medical History / Comment(s): POLIO Daughter(s) Family Medical History: Cancer Additional Family Medical History / Comment(s): BRAIN General Exam Limitations: no limitations General appearance: alert, in no apparent distress Head exam: Present: atraumatic Eye exam: Absent: scleral icterus, conjunctival injection Respiratory exam: Present: normal lung sounds bilaterally. Absent: respiratory distress, accessory muscle use Cardiovascular Exam: Present: regular rate GI/Abdominal exam: Present: soft. Absent: tenderness Right Hip exam: Absent: tenderness Upper Leg exam: Absent: tenderness Knee exam: Present: full ROM, swelling. Absent: tenderness Lower Leg exam: Present: full ROM, swelling. Absent: tenderness, ecchymosis, deformity, palpable cord, Homans' sign Ankle exam: Present: full ROM, swelling. Absent: tenderness Foot/Toe exam: Present: swelling. Absent: tenderness Neurovascular tendon exam: Absent: abnormal cap refill, extremity cold to touch, pallor, foot drop Back exam: Absent: tenderness, CVA tenderness (R), CVA tenderness (L) Neurological exam: Present: alert, oriented X3 Psychiatric exam: Present: normal affect, normal mood Skin exam: Present: warm, dry, normal color, other (Foot ulcers dressed today by Dr. Becker). Absent: cyanosis, diaphoretic, petechiae, pallor Course Vital Signs 08/05/21 10:23 Temperature 98.2 F Pulse Rate 67 Respiratory 18 Rate Blood Pressure 174/64 O2 Sat by Pulse 100 Oximetry Medical Decision Making - Medical Decision Making Ultrasound shows right lower extremity DVT popliteal and calf veins. Pedal pulses present, and foot is pink and warm. I did speak with patient's primary care doctor who agreed that she can be prescribed Eliquis and discharged to follow up with him in the office next week. Patient and family member are agreeable to this plan of care. Patient's vital signs are stable. Patient denies any chest pain or shortness of breath. She was directed to return to the emergency room if any new or concerning symptoms. Case is discussed with Dr. Maravilla - Lab Data Result diagrams: 08/05/21 10:50 08/05/21 10:50 Lab Results 08/05/21 08/05/21 08/05/21 Range/Units 10:50 10:50 10:50 WBC 9.7 (3.8-10.6) k/uL RBC 3.74 L (3.80-5.40) m/uL Hgb 10.3 L (11.4-16.0) gm/dL Hct 33.8 L (34.0-46.0) % MCV 90.4 (80.0-100.0) fL MCH 27.7 (25.0-35.0) pg MCHC 30.6 L (31.0-37.0) g/dL RDW 13.6 (11.5-15.5) % Plt Count 383 (150-450) k/uL MPV 7.6 Neutrophils % 65 % Lymphocytes % 24 % Monocytes % 5 % Eosinophils % 4 % Basophils % 0 % Neutrophils # 6.3 (1.3-7.7) k/uL Lymphocytes # 2.3 (1.0-4.8) k/uL Monocytes # 0.5 (0-1.0) k/uL Eosinophils # 0.4 (0-0.7) k/uL Basophils # 0.0 (0-0.2) k/uL Hypochromasia Slight Sodium 139 (137-145) mmol/L Potassium 4.4 (3.5-5.1) mmol/L Chloride 107 (98-107) mmol/L Carbon Dioxide 26 (22-30) mmol/L Anion Gap 6 mmol/L BUN 19 H (7-17) mg/dL Creatinine 0.60 (0.52-1.04) mg/dL Est GFR (CKD-EPI)AfAm >90 (>60 ml/min/1.73 sqM) Est GFR (CKD-EPI)NonAf 82 (>60 ml/min/1.73 sqM) Glucose 80 (74-99) mg/dL Estimated Ave Glu mg/dL 95 Hemoglobin A1c 5.0 (0.0-6.0) % Calcium 8.9 (8.4-10.2) mg/dL Total Bilirubin 0.3 (0.2-1.3) mg/dL AST 30 (14-36) U/L ALT 13 (4-34) U/L Alkaline Phosphatase 47 (38-126) U/L Total Protein 6.2 L (6.3-8.2) g/dL Albumin 3.6 (3.5-5.0) g/dL Disposition Clinical Impression: Deep vein thrombosis (DVT) of lower extremity Disposition: HOME SELF-CARE Condition: Good Instructions (If sedation given, give patient instructions): Deep Vein Thrombosis (ED) Additional Instructions: Take Eliquis as prescribed and follow-up with your primary care doctor next week. Return to the emergency room with any new or concerning symptoms including chest pain or difficulty in breathing. Prescriptions: Apixaban [Eliquis] 0 mg PO DIRECTED #74 tablet Is patient prescribed a controlled substance at d/c from ED?: No Referrals: Guadalupe Lozada MD [Primary Care Provider] - 1-2 days Time of Disposition: 12:22
[2021-08-05 11:08] LABS: Basophils % (A) 0 %; Eosinophils # (A) 0.4 k/uL (0-0.7); Eosinophils % (A) 4 %; HCT 33.8 % (34.0-46.0); HGB 10.3 gm/dL (11.4-16.0); Hypochromasia Slight; Lymphocytes # (A) 2.3 k/uL (1.0-4.8); Lymphocytes % (A) 24 %; MCH 27.7 pg (25.0-35.0); MCHC 30.6 g/dL (31.0-37.0); MCV 90.4 fL (80.0-100.0); Mean Platelet Volume 7.6; Monocytes # (A) 0.5 k/uL (0-1.0); Monocytes % (A) 5 %; Neutrophils # (A) 6.3 k/uL (1.3-7.7); Neutrophils % (A) 65 %; Platelet Count 383 k/uL (150-450); RBC 3.74 m/uL (3.80-5.40); RDW 13.6 % (11.5-15.5); WBC 9.7 k/uL (3.8-10.6)
[2021-08-05 11:24] LABS: Anion Gap 6 mmol/L; Blood Urea Nitrogen 19 mg/dL (7-17); Carbon Dioxide 26 mmol/L (22-30); Chloride 107 mmol/L (98-107); Glucose 80 mg/dL (74-99); Potassium 4.4 mmol/L (3.5-5.1); Sodium 139 mmol/L (137-145)
[2021-08-05 11:25] LABS: ALT 13 U/L (4-34); AST 30 U/L (14-36); African American GFR (CKD) >90 (>60 ml/min/1.73 sqM); Albumin 3.6 g/dL (3.5-5.0); Alkaline Phosphatase 47 U/L (38-126); Calcium 8.9 mg/dL (8.4-10.2); Non-African American GFR(CKD) 82 (>60 ml/min/1.73 sqM); Total Bilirubin 0.3 mg/dL (0.2-1.3); Total Protein 6.2 g/dL (6.3-8.2)
--- NOTE | 2021-08-05 11:52 | US ---
EXAMINATION TYPE: US venous doppler duplex LE RT DATE OF EXAM: 08/05/2021 11:44 AM COMPARISON: NONE CLINICAL HISTORY: pain. Pain. No hx of DVT. Patient takes baby aspirin. SIDE PERFORMED: Right TECHNIQUE: The lower extremity deep venous system is examined utilizing real time linear array sonog elizabeth with graded compression, doppler sonography and color-flow sonography. VESSELS IMAGED: Common Femoral Vein Deep Femoral Vein Greater Saphenous Vein * Femoral Vein Popliteal Vein Small Saphenous Vein * Proximal Calf Veins (* superficial vessels) Right Leg: There appear to be internal echoes within the popliteal vein and prox calf veins. Compress ions deferred due to echoes seen and no color flow seen. Calf veins at ankle not seen due to edema. IMPRESSION: 1. Deep venous thrombosis right lower extremity the popliteal and calf veins.
[2021-08-05] MEDS ORDERED: APIXABAN 5 MG TAB PO SCH (12:30)
[2021-08-05 22:58] LABS: Prealbumin 16.4 mg/dL (18.0-42.0)
== END 2021-08-05 12:46 | disposition home or self-care (01) ==
LOC: EC 10:17
DX: I82.431 Acute embolism and thrombosis of right popliteal vein (principal); I82.461 Acute embolism and thrombosis of right calf muscular vein; K21.9 Gastro-esophageal reflux disease without esophagitis; M19.90 Unspecified osteoarthritis, unspecified site; Z79.82 Long term (current) use of aspirin; Z79.899 Other long term (current) drug therapy
CPT/HCPCS: 36415; 84134; 80053; 85025; 83036; 93971; 99284; 96374; J2270

== ENCOUNTER → 2021-09-14 | Outpatient (CLI) | payer MEDICARE | END | disposition home or self-care (01) | LOC: RADUSWWP 13:51 | PROVIDERS: ATTEND Podiatrist | DX: I73.9 Peripheral vascular disease, unspecified (principal); G90.09 Other idiopathic peripheral autonomic neuropathy; L97.522 Non-pressure chronic ulcer of other part of left foot with fat layer exposed; L97.512 Non-pressure chronic ulcer of other part of right foot with fat layer exposed | CPT/HCPCS: 93923 ==

== ENCOUNTER 2022-02-10 17:43 | Emergency (ER) | payer MEDICARE, OTHER ==
[2022-02-10 18:22] VITALS: RESP 18; TEMP 98
--- NOTE | 2022-02-10 20:07 | ED ---
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 Patient went to her cherry pitter today he was sent here for IV antibiotics and evaluation for probable cellulitis. Patient states she feels well otherwise. No history of diabetes or immunosuppression. No headache, no fever or chills, no changes in vision or hearing, no sore throat or difficulty with speech, no neck pain, no chest pain or shortness of breath, no abdominal pain, no nausea or vomiting, no changes in urination or bowel mov ements, no numbness or tingling, no extremity pain Past medical, surgical, social, and family history reviewed. - Related Data Home Medications Medication Instructions Recorded Confirmed amLODIPine [Norvasc] 5 mg PO DAILY 12/23/14 02/10/22 Ferrous Sulfate [Iron (65 MG 325 mg PO DAILY 04/17/17 02/10/22 Elemental)] Aspirin [Adult Low Dose Aspirin EC] 81 mg PO DAILY 09/20/17 02/10/22 Glucosam/John-Msm1/C/Lincoln/Bosw 1 tab PO BID 09/20/17 02/10/22 [Glucosamine-Chondroitin Tablet] Calcium Carbonate [Calcium] 1,200 mg PO BID 06/06/18 02/10/22 Multivitamins, Thera [Multivitamin 1 tab PO DAILY 06/06/18 02/10/22 (formulary)] Cholecalciferol [Vitamin D3 (25 50 mcg PO DAILY 06/16/21 02/10/22 Mcg = 1000 Iu)] Omeprazole 20 mg PO DAILY 08/05/21 02/10/22 Ubidecarenone [Co Q-10] 100 mg PO DAILY 08/05/21 02/10/22 Apixaban [Eliquis] 2.5 mg PO BID 02/10/22 02/10/22 Donepezil [Aricept] 5 mg PO DAILY 02/10/22 02/10/22 Fenofibrate Nanocrystallized 145 mg PO DAILY 02/10/22 02/10/22 [Fenofibrate] Gabapentin [Neurontin] 100 mg PO DAILY 02/10/22 02/10/22 Rosuvastatin [Crestor] 20 mg PO DAILY 02/10/22 02/10/22 Previous Rx's Medication Instructions Recorded Doxycycline [Vibramycin] 100 mg PO BID 1 Days #20 each 02/10/22 Allergies Allergy/AdvReac Type Severity Reaction Status Date / Time cefazolin [From Kefzol] Allergy Severe Rash/Hives Verified 02/10/22 21:32 daptomycin Allergy Unknown Verified 02/10/22 21:32 vancomycin Allergy Rash/Hives Verified 02/10/22 21:32 Review of Systems ROS Statement: Those systems with pertinent positive or pertinent negative responses have been documented in the HPI. ROS Other: All systems not noted in ROS Statement are negative. Past Medical History Past Medical History: Cancer, GERD/Reflux, Osteoarthritis (OA) Additional Past Medical History / Comment(s): SEE DR PERSAUD H&P, Left foot wound, neuropathy, raynaulds, gout, HIATAL HERNIA, ORAL CANCER 2018 History of Any Multi-Drug Resistant Organisms: MRSA Date of last positivie culture/infection: Unknown Patient states Hx of MRSA. No MRSA at [facility]. MDRO Source:: left foot Past Surgical History: Bladder Surgery, Orthopedic Surgery, Tonsillectomy, Tubal Ligation Additional Past Surgical History / Comment(s): 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), SINUS BX-NEG, COLONOSCOPY, MICHELLE BREAST BX-NEG, MICHELLE CATARACTS, PT WAS BORN WITH EXTRA THUMB ON RT HAND HAD IT SX REMOVED WHEN SHE WAS AN INFA NT.BLADDER SUSPENSION, CARBAJAL NEUROMA REMOVED. oral surgery 06/19/17 for removal of cancer, teeth extraction and some bone removal Past Anesthesia/Blood Transfusion Reactions: Previous Problems w/ Anesthesia Additional Past Anesthesia/Blood Transfusion Reaction / Comment(s): Hard time coming out of anesthesia after oral cancer surgery (Patient unsure of this previous notation) Past Psychological History: No Psychological Hx Reported Smoking Status: Never smoker Past Alcohol Use History: None Reported Past Drug Use History: None Reported - Past Family History Son(s) Family Medical History: No Reported History Sister(s) Family Medical History: Diabetes Mellitus Brother(s) Family Medical History: No Reported History Mother Family Medical History: Cancer Additional Family Medical History / Comment(s): PANCREATIC CANCER Father Family Medical History: Congestive Heart Failure (CHF) Additional Family Medical History / Comment(s): POLIO Daughter(s) Family Medical History: Cancer Additional Family Medical History / Comment(s): BRAIN General Exam Limitations: no limitations General appearance: alert, in no apparent distress Head exam: Present: atraumatic, normocephalic, normal inspection Eye exam: Present: normal appearance, PERRL, EOMI. Absent: scleral icterus, conjunctival injection, periorbital swelling ENT exam: Present: normal exam, mucous membranes moist Neck exam: Present: normal inspection, full ROM. Absent: tenderness, meningismus, lymphadenopathy Respiratory exam: Present: normal lung sounds bilaterally. Absent: respiratory distress, wheezes, rales, rhonchi, stridor Cardiovascular Exam: Present: regular rate, normal rhythm, normal heart sounds. Absent: systolic murmur, diastolic murmur, rubs, gallop, clicks GI/Abdominal exam: Present: soft, normal bowel sounds. Absent: distended, tenderness, guarding, rebound, rigid Extremities exam: Present: full ROM, normal capillary refill. Absent: normal inspection (Chronic appearing ulceration to the plantar aspect of left foot with mucoid discharge. Erythema progressing just proximal to the ankle. No tenderness or crepitus. Pulses intact. Capillary refill less than 2 seconds), tenderness, pedal edema, joint swelling, calf tenderness Back exam: Present: normal inspection Neurological exam: Present: alert, oriented X3, CN II-XII intact Psychiatric exam: Present: normal affect, normal mood Skin exam: Present: warm, dry, intact, normal color. Absent: rash Course Vital Signs 02/10/22 02/10/22 18:19 21:00 Temperature 98 F Pulse Rate 70 80 Respiratory 18 18 Rate Blood Pressure 160/63 132/62 O2 Sat by Pulse 99 Oximetry - Reevaluation(s) Reevaluation #1: 02/10/22 21:50 Medical record is reviewed Patient does not appear to be ill or toxic. In no distress at discharge. Vital signs stable, patient afebrile Patient is informed of results and questions answered Patient in no distress Medical Decision Making - Medical Decision Making Differential diagnosis: Cellulitis, less likely osteomyelitis, does not appear to be consistent with sepsis. Diagnostic workup to include aerobic and anaerobic wound culture, blood cultu res, lactic acid, CRP, ESR, x-rays, plan for evaluation Patient's laboratory investigations are essentially unremarkable. CBC is normal. Sedimentation rate and CRP are normal. Lactic acid normal. BUN is 27, creatinine 0.59, indicating possible mild dehydration. However the patient does not appear to be ill or toxic. We'll treat accordingly with doxycycline 100 mg twice a day. She does have a history of MRSA. We'll cover for community acquired MRSA. We'll have the patient recheck with either their regular physician or the cherry pitter between and Monday. Of course over the weekend the patient can return here if any symptoms worsen or any other problems arise. Patient was told to return to the ER for any signs or symptoms worsen. Told to return immediately if any other problems arise. All questions answered. Treatment plan discussed. Patient in agreement Every effort has been made to ensure accuracy of this dictation. However, due to the limitations of electronic medical records and dictation devices, errors in charting still occur. Supervising physician Dr. Last - Lab Data Result diagrams: 02/10/22 20:20 02/10/22 20:20 Lab Results 02/10/22 02/10/22 02/10/22 Range/Units 20:20 20:20 20:20 WBC 8.3 (3.8-10.6) k/uL RBC 4.30 (3.80-5.40) m/uL Hgb 12.6 (11.4-16.0) gm/dL Hct 37.8 (34.0-46.0) % MCV 87.8 (80.0-100.0) fL MCH 29.3 (25.0-35.0) pg MCHC 33.3 (31.0-37.0) g/dL RDW 13.2 (11.5-15.5) % Plt Count 326 (150-450) k/uL MPV 8.2 Neutrophils % 46 % Lymphocytes % 40 % Monocytes % 7 % Eosinophils % 5 % Basophils % 1 % Neutrophils # 3.8 (1.3-7.7) k/uL Lymphocytes # 3.3 (1.0-4.8) k/uL Monocytes # 0.5 (0-1.0) k/uL Eosinophils # 0.4 (0-0.7) k/uL Basophils # 0.1 (0-0.2) k/uL ESR 19 (0-20) mm/hr Sodium 139 (137-145) mmol/L Potassium 5.0 (3.5-5.1) mmol/L Chloride 107 (98-107) mmol/L Carbon Dioxide 28 (22-30) mmol/L Anion Gap 4 mmol/L BUN 27 H (7-17) mg/dL Creatinine 0.59 (0.52-1.04) mg/dL Est GFR (CKD-EPI)AfAm >90 (>60 ml/min/1.73 sqM) Est GFR (CKD-EPI)NonAf 83 (>60 ml/min/1.73 sqM) Glucose 108 H (74-99) mg/dL Plasma Lactic Acid Mervin 1.2 (0.7-2.0) mmol/L Calcium 9.9 (8.4-10.2) mg/dL Total Bilirubin 0.4 (0.2-1.3) mg/dL AST 34 (14-36) U/L ALT 22 (4-34) U/L Alkaline Phosphatase 57 (38-126) U/L C-Reactive Protein <0.5 (<1.0) mg/dL Total Protein 7.4 (6.3-8.2) g/dL Albumin 4.3 (3.5-5.0) g/dL - Radiology Data Radiology results: report reviewed (Plain film x-rays of the left foot and left tibia/fibula independently interpreted by me reveal no evidence of acute pathology. No evidence of osteomyelitis. Radiology report reviewed), image reviewed Disposition Clinical Impression: Cellulitis of left lower extremity Disposition: HOME SELF-CARE Condition: Good Instructions (If sedation given, give patient instructions): Cellulitis (ED) Additional Instructions: Take the antibiotics as directed. Wash the wound daily with warm soap and water. Keep covered with a bandage. Follow-up with the cherry pitter for reevaluation on Monday. Elevate the leg as much as possible. Follow-up with your regular physician as directed. Return to the ER immediately if any symptoms worsen, new symptoms arise, or any other problems develop. Is patient prescribed a controlled substance at d/c from ED?: No Referrals: Guadalupe Lozada MD [Primary Care Provider] - 1-2 days Eugenio,Gorge E, DPM [STAFF PHYSICIAN] - 1-2 days Time of Disposition: 21:52
[2022-02-10] MEDS ORDERED: DOXYCYCLINE 100 MG in SODIUM CHLORIDE 0.9% 100 ML IVPB ONE (20:09)
[2022-02-10 20:43] LABS: Basophils # (A) 0.1 k/uL (0-0.2); Basophils % (A) 1 %; Eosinophils # (A) 0.4 k/uL (0-0.7); Eosinophils % (A) 5 %; HCT 37.8 % (34.0-46.0); HGB 12.6 gm/dL (11.4-16.0); Lymphocytes # (A) 3.3 k/uL (1.0-4.8); Lymphocytes % (A) 40 %; MCH 29.3 pg (25.0-35.0); MCHC 33.3 g/dL (31.0-37.0); MCV 87.8 fL (80.0-100.0); Mean Platelet Volume 8.2; Monocytes # (A) 0.5 k/uL (0-1.0); Monocytes % (A) 7 %; Neutrophils # (A) 3.8 k/uL (1.3-7.7); Neutrophils % (A) 46 %; Platelet Count 326 k/uL (150-450); RDW 13.2 % (11.5-15.5); WBC 8.3 k/uL (3.8-10.6)
[2022-02-10 21:03] LABS: ALT 22 U/L (4-34); AST 34 U/L (14-36); African American GFR (CKD) >90 (>60 ml/min/1.73 sqM); Albumin 4.3 g/dL (3.5-5.0); Alkaline Phosphatase 57 U/L (38-126); Anion Gap 4 mmol/L; Blood Urea Nitrogen 27 mg/dL (7-17); Calcium 9.9 mg/dL (8.4-10.2); Carbon Dioxide 28 mmol/L (22-30); Chloride 107 mmol/L (98-107); Glucose 108 mg/dL (74-99); Non-African American GFR(CKD) 83 (>60 ml/min/1.73 sqM); Sodium 139 mmol/L (137-145); Total Bilirubin 0.4 mg/dL (0.2-1.3); Total Protein 7.4 g/dL (6.3-8.2)
[2022-02-10 21:19] LABS: C Reactive Protein <0.5 mg/dL (<1.0)
--- NOTE | 2022-02-10 21:34 | XR ---
EXAMINATION TYPE: XR tibia fibula LT DATE OF EXAM: 02/10/2022 COMPARISON: None HISTORY: Pain infection TECHNIQUE: 2 view left tibia and fibula FINDINGS: No acute fracture or dislocation is evident. No cortical disruption is identified. 3-phase bone scan could be performed for sufficient suspicion for osteomyelitis. There is diffuse soft tissue swelling over the lower extremity. IMPRESSION: 1. Soft tissue swelling lower left extremity. 2. No acute osseous abnormality. 3. No definite osteomyelitis. Three-phase bone scan could be performed as clinically indicated.
[2022-02-10 21:35] LABS: Erythrocyte Sedimentation Rate 19 mm/hr (0-20)
--- NOTE | 2022-02-10 21:42 | XR ---
EXAMINATION TYPE: XR foot complete LT DATE OF EXAM: 02/10/2022 COMPARISON: 01/22/2020 HISTORY: Wound on plantar arch TECHNIQUE: Three-view left foot FINDINGS: There is angulation and erosion of the distal first metatarsal. 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 No acute fracture is identified. Plantar calcaneal heel spurs present. No suspicious cortical erosion is evident. If there is sufficient clinical concern for osteomyelitis, MRI would be recommended. IMPRESSION: 1. No definite cortical erosion to suggest osteomyelitis.
[2022-02-10] MEDS ORDERED: BACITRACIN OINT 1 EACH PACKET TOPICAL ONE (21:55)
[2022-02-10 22:07] VITALS: BP 142/67; PULSE 84
== END 2022-02-10 22:08 | disposition home or self-care (01) ==
LOC: EC 17:43
DX: L03.116 Cellulitis of left lower limb (principal); K21.9 Gastro-esophageal reflux disease without esophagitis; Z79.899 Other long term (current) drug therapy; Z88.1 Allergy status to other antibiotic agents; Z88.8 Allergy status to other drugs, medicaments and biological substances
CPT/HCPCS: 36415; 80053; 83605; 85025; 85652; 86140; 87040; 87070; 87075; 87205; 96365; 99283